=== PATIENT | female | born 1950 | race Caucasian/White ===

== ENCOUNTER → 2017-08-24 | Outpatient (CLI) | payer MEDICARE, OTHER ==
--- NOTE | 2017-08-24 12:50 | XR ---
EXAMINATION TYPE: XR chest 2V DATE OF EXAM: 08/24/2017 COMPARISON: NONE INDICATION: Chest pain TECHNIQUE: Frontal and lateral views of the chest are obtained. FINDINGS: The heart size is normal. The pulmonary vasculature is normal. The lungs are clear. Large hiatal hernia is present. IMPRESSION: 1. No acute pulmonary process.
== END | disposition home or self-care (01) ==
LOC: RADXRMAIN 12:03
PROVIDERS: ATTEND Family Medicine
DX: R06.00 Dyspnea, unspecified (principal); R07.9 Chest pain, unspecified
CPT/HCPCS: 71046; 85379

== ENCOUNTER → 2018-04-28 | Day surgery (SDC) | payer MEDICARE, OTHER ==
[2018-04-23 12:55] VITALS: BMI 38.1
[~2018-04-28] MED LIST: HYDROmorphone 1 MG/ML 1 ML SYRINGE IVP PRN; LACTATED RINGERS 1,000 ML IV SCH; LIDOCAINE 1% 20 ML VIAL (10MG/ML) FOR IV START INTRADERMA ONE; METOPROLOL TARTRATE 5 MG/5 ML VIAL IVP ONE; PROPOFOL 10 MG/ML 20 ML VIAL IV ONE
[2018-04-28 10:18] VITALS: TEMP 97
--- NOTE | 2018-04-28 11:10 | P.GSHP ---
History of Present Illness H&P Date: 04/28/18 Chief Complaint: GERD, GI bleed This a 67-year-old female who presents today for EGD and colonoscopy. She's had issues with GERD and GI bleed. Past Medical History Past Medical History: Atrial Fibrillation, Asthma, COPD, CVA/TIA, GERD/Reflux, Hyperlipidemia, Hypertension Additional Past Medical History / Comment(s): Hx stroke 1999; left sided weakness when tired History of Any Multi-Drug Resistant Organisms: None Reported Past Surgical History: Appendectomy, Section, Cholecystectomy, Hernia Repair, Orthopedic Surgery Additional Past Surgical History / Comment(s): Colonoscopy Past Anesthesia/Blood Transfusion Reactions: No Reported Reaction Smoking Status: Never smoker - Past Family History Mother Family Medical History: No Reported History Medications and Allergies Home Medications Medication Instructions Recorded Confirmed Type Albuterol Inhaler [Ventolin Hfa 1 - 2 puff INHALATION RT-Q6H PRN 04/23/18 History Inhaler] Albuterol Nebulized [Ventolin 2.5 mg INHALATION Q6H PRN 04/23/18 04/28/18 History Nebulized] Aspirin [Adult Low Dose Aspirin EC] 81 mg PO DAILY 04/23/18 04/23/18 History Atenolol 25 mg PO DAILY 04/23/18 04/28/18 History Losartan [Cozaar] 25 mg PO DAILY 04/23/18 04/28/18 History Lovastatin [Mevacor] 40 mg PO HS 04/23/18 04/28/18 History Omeprazole 20 mg PO DAILY 04/23/18 04/28/18 History Allergies Allergy/AdvReac Type Severity Reaction Status Date / Time theophylline [From Mohit-Dur] AdvReac Rapid Verified 04/23/18 12:25 Heart Rate Surgical - Exam Vital Signs Temp Pulse Resp BP Pulse Ox 97.0 F L 94 16 148/84 96 04/28/18 10:14 04/28/18 10:14 04/28/18 10:14 04/28/18 10:14 04/28/18 10:14 - General well developed, no distress - Eyes PERRL - ENT normal pinna - Neck no masses - Respiratory normal expansion - Cardiovascular Rhythm: regular - Abdomen Abdomen: soft, non tender Assessment and Plan Assessment: GERD, GI bleed. We'll perform EGD and colonoscopy.
--- NOTE | 2018-04-28 11:33 | P.OP ---
Date of Procedure: 04/28/18 Preoperative Diagnosis: GERD GI bleed Postoperative Diagnosis: Antral gastritis Hiatal hernia Diverticulosis Procedure(s) Performed: EGD Colonoscopy Anesthesia: MAC Surgeon: Gigi Horan Pathology: other (Antrum, esophagus) Condition: stable Disposition: PACU Description of Procedure: The patient's placed on the endoscopy table. She received IV sedation. The gastroscope placed oropharynx passed in the esophagus was then placed through the pylorus. The first and second portion of the duodenum appeared normal. Scope was then brought back the antrum this was mildly inflamed. A biopsies performed. The scope was then retroflexed the remainder of the stomach appeared normal. There was a moderate size hiatal hernia. The GE junction was at 38 cm. The distal esophagus appeared mildly inflamed a biopsies performed. The proximal esophagus appeared normal. Next digital rectal exam was performed which revealed external hemorrhoids. Flexible colonoscope was then placed patient anus and passed throughout the entire colon. The the ileocecal valve visualized. The cecum, ascending and transverse colon appeared normal. In the descending and sigmoid colon there is mild diverticular changes. The scope was then brought back the rectum and this appeared normal. Scope was withdrawn for patient.
[2018-04-28 12:21] VITALS: BP 112/72; PULSE 93; RESP 18
--- NOTE | 2018-04-30 12:48 | CDI ---
Date: 04/30/18 CDS/Lead Operator Name: Giuliana Baltazar Phone: If any questions, call Aimee Alexandra Wash Test Checker at [phone] Patient Name: Peggy Guaman Admit Date: 04/28/18 Discharge Date: 04/28/18 ATTENTION: The [facility] Coding Staff appreciate your assistance in clarifying documentation. Please respond to the clarification below the line at the bottom and electronically sign. The [facility] Coding staff will review the response and follow-up if needed. Please note: Queries are made part of the Legal Health Record. If you have any questions, please contact the Wash Test Checker. Dear Dr. Horan, Please provide clarification as the the cause of the GI bleed. Please clarify if the GI bleed was caused by any of the endoscopic findinds (gastritis, diverticulosis, gastroesophageal reflux disease with esophagitis). Thank you for your kind consideration I am unable to determine the source of bleeding due to no active blood was seen on endoscopy. AIDE
== END ==
LOC: ORWHC2ENDO 09:17
PROVIDERS: ATTEND Surgery
DX: K92.2 Gastrointestinal hemorrhage, unspecified (principal); K31.9 Disease of stomach and duodenum, unspecified; K21.0 Gastro-esophageal reflux disease with esophagitis; K29.70 Gastritis, unspecified, without bleeding; K44.9 Diaphragmatic hernia without obstruction or gangrene; K57.30 Diverticulosis of large intestine without perforation or abscess without bleeding; K64.4 Residual hemorrhoidal skin tags; I48.91 Unspecified atrial fibrillation; J44.9 Chronic obstructive pulmonary disease, unspecified; E78.5 Hyperlipidemia, unspecified; I10 Essential (primary) hypertension; I69.354 Hemiplegia and hemiparesis following cerebral infarction affecting left non-dominant side; Z79.82 Long term (current) use of aspirin; Z79.899 Other long term (current) drug therapy; Z88.8 Allergy status to other drugs, medicaments and biological substances
CPT/HCPCS: 88305; 45378; 43239; J2704

== ENCOUNTER 2019-08-25 04:30 | Emergency (ER) | payer MEDICARE, OTHER ==
[2019-08-25 05:56] LABS: Calcium 7.5 mg/dL (8.4-10.2); Potassium 3.5 mmol/L (3.5-5.1); Total Bilirubin 0.9 mg/dL (0.2-1.3); Total Protein 7.1 g/dL (6.3-8.2)
[2019-08-25 05:58] LABS: Basophils # (A) 0.1 k/uL (0-0.2); Basophils % (A) 1 %; Eosinophils # (A) 0.4 k/uL (0-0.7); Eosinophils % (A) 5 %; HCT 41.2 % (34.0-46.0); HGB 13.6 gm/dL (11.4-16.0); Lymphocytes # (A) 2.4 k/uL (1.0-4.8); Lymphocytes % (A) 30 %; MCH 32.4 pg (25.0-35.0); MCHC 33.1 g/dL (31.0-37.0); MCV 97.8 fL (80.0-100.0); Mean Platelet Volume 8.1; Monocytes # (A) 0.3 k/uL (0-1.0); Monocytes % (A) 4 %; Neutrophils # (A) 4.7 k/uL (1.3-7.7); Neutrophils % (A) 59 %; Platelet Count 164 k/uL (150-450); RBC 4.21 m/uL (3.80-5.40); RDW 12.3 % (11.5-15.5)
[2019-08-25 06:00] LABS: Creatine Kinase 116 U/L (30-135)
[2019-08-25 06:13] LABS: Creatine Kinase MB 0.7 ng/mL (0.0-2.4); Troponin I <0.012 ng/mL (0.000-0.034)
[2019-08-25 06:32] LABS: D-Dimer 0.36 mg/L FEU (<0.60); INR 2.2 (<1.2); Partial Thromboplastin Time 28.6 sec (22.0-30.0)
[2019-08-25] MEDS ORDERED: AZITHROMYCIN 500 MG TAB PO STA (07:19)
--- NOTE | 2019-08-25 07:21 | XR ---
EXAMINATION TYPE: XR chest 2V DATE OF EXAM: 08/25/2019 COMPARISON: 08/24/2017 INDICATION: Shortness of breath difficulty breathing TECHNIQUE: Frontal and lateral views of the chest are obtained. Images were not sent [employer] and pre sented now for interpretation. FINDINGS: The heart size is upper limits of normal. The pulmonary vasculature is slightly prominent. There is diffuse increased lung markings. A few Lulu B lines at the right costophrenic angle. Suspi cious focal consolidation is not evident. IMPRESSION: 1. Clinical correlation recommended for mild pulmonary edema and congestive heart failure.
--- NOTE | 2019-08-25 07:23 | ED ---
SOB HPI - General Stated Complaint: Difficulty Breathing - Related Data Home Medications Medication Instructions Recorded Confirmed Albuterol Inhaler [Ventolin Hfa 1 - 2 puff INHALATION RT-Q6H PRN 04/23/18 04/28/18 Inhaler] Albuterol Nebulized [Ventolin 2.5 mg INHALATION Q6H PRN 04/23/18 04/28/18 Nebulized] Aspirin [Adult Low Dose Aspirin EC] 81 mg PO DAILY 04/23/18 04/23/18 Atenolol 25 mg PO DAILY 04/23/18 04/28/18 Losartan [Cozaar] 25 mg PO DAILY 04/23/18 04/28/18 Lovastatin [Mevacor] 40 mg PO HS 04/23/18 04/28/18 Omeprazole 20 mg PO DAILY 04/23/18 04/28/18 Allergies Allergy/AdvReac Type Severity Reaction Status Date / Time theophylline [From Mohit-Dur] AdvReac Rapid Verified 04/23/18 12:25 Heart Rate Review of Systems ROS Statement: Those systems with pertinent positive or pertinent negative responses have been documented in the HPI. ROS Other: All systems not noted in ROS Statement are negative. Past Medical History Past Medical History: Atrial Fibrillation, Asthma, COPD, CVA/TIA, GERD/Reflux, Hyperlipidemia, Hypertension Additional Past Medical History / Comment(s): Hx stroke 1999; left sided weakness when tired History of Any Multi-Drug Resistant Organisms: None Reported Past Surgical History: Appendectomy, Section, Cholecystectomy, Hernia Repair, Orthopedic Surgery Additional Past Surgical History / Comment(s): Colonoscopy Past Anesthesia/Blood Transfusion Reactions: No Reported Reaction Smoking Status: Never smoker - Past Family History Mother Family Medical History: No Reported History Medical Decision Making - Lab Data Result diagrams: 08/25/19 05:06 08/25/19 05:06 Lab Results 08/25/19 08/25/19 08/25/19 Range/Units 05:06 05:06 05:06 WBC 8.0 (3.8-10.6) k/uL RBC 4.21 (3.80-5.40) m/uL Hgb 13.6 (11.4-16.0) gm/dL Hct 41.2 (34.0-46.0) % MCV 97.8 (80.0-100.0) fL MCH 32.4 (25.0-35.0) pg MCHC 33.1 (31.0-37.0) g/dL RDW 12.3 (11.5-15.5) % Plt Count 164 (150-450) k/uL Neutrophils % 59 % Lymphocytes % 30 % Monocytes % 4 % Eosinophils % 5 % Basophils % 1 % Neutrophils # 4.7 (1.3-7.7) k/uL Lymphocytes # 2.4 (1.0-4.8) k/uL Monocytes # 0.3 (0-1.0) k/uL Eosinophils # 0.4 (0-0.7) k/uL Basophils # 0.1 (0-0.2) k/uL PT (9.0-12.0) sec INR (<1.2) APTT (22.0-30.0) sec D-Dimer (<0.60) mg/L FEU Sodium 142 (137-145) mmol/L Potassium 3.5 (3.5-5.1) mmol/L Chloride 105 (98-107) mmol/L Carbon Dioxide 29 (22-30) mmol/L Anion Gap 8 mmol/L BUN 17 (7-17) mg/dL Creatinine 0.88 (0.52-1.04) mg/dL Est GFR (CKD-EPI)AfAm 78 (>60 ml/min/1.73 sqM) Est GFR (CKD-EPI)NonAf 67 (>60 ml/min/1.73 sqM) Glucose 124 H (74-99) mg/dL Calcium 7.5 L (8.4-10.2) mg/dL Total Bilirubin 0.9 (0.2-1.3) mg/dL AST 26 (14-36) U/L ALT 15 (4-34) U/L Alkaline Phosphatase 141 H (38-126) U/L Total Creatine Kinase 116 (30-135) U/L CK-MB (CK-2) 0.7 (0.0-2.4) ng/mL CK-MB (CK-2) Rel Index 0.6 Troponin I <0.012 (0.000-0.034) ng/mL NT-Pro-B Natriuret Pep pg/mL Total Protein 7.1 (6.3-8.2) g/dL Albumin 4.0 (3.5-5.0) g/dL 08/25/19 08/25/19 Range/Units 05:06 05:06 WBC (3.8-10.6) k/uL RBC (3.80-5.40) m/uL Hgb (11.4-16.0) gm/dL Hct (34.0-46.0) % MCV (80.0-100.0) fL MCH (25.0-35.0) pg MCHC (31.0-37.0) g/dL RDW (11.5-15.5) % Plt Count (150-450) k/uL Neutrophils % % Lymphocytes % % Monocytes % % Eosinophils % % Basophils % % Neutrophils # (1.3-7.7) k/uL Lymphocytes # (1.0-4.8) k/uL Monocytes # (0-1.0) k/uL Eosinophils # (0-0.7) k/uL Basophils # (0-0.2) k/uL PT 21.0 H (9.0-12.0) sec INR 2.2 H (<1.2) APTT 28.6 (22.0-30.0) sec D-Dimer 0.36 (<0.60) mg/L FEU Sodium (137-145) mmol/L Potassium (3.5-5.1) mmol/L Chloride (98-107) mmol/L Carbon Dioxide (22-30) mmol/L Anion Gap mmol/L BUN (7-17) mg/dL Creatinine (0.52-1.04) mg/dL Est GFR (CKD-EPI)AfAm (>60 ml/min/1.73 sqM) Est GFR (CKD-EPI)NonAf (>60 ml/min/1.73 sqM) Glucose (74-99) mg/dL Calcium (8.4-10.2) mg/dL Total Bilirubin (0.2-1.3) mg/dL AST (14-36) U/L ALT (4-34) U/L Alkaline Phosphatase (38-126) U/L Total Creatine Kinase (30-135) U/L CK-MB (CK-2) (0.0-2.4) ng/mL CK-MB (CK-2) Rel Index Troponin I (0.000-0.034) ng/mL NT-Pro-B Natriuret Pep 1150 pg/mL Total Protein (6.3-8.2) g/dL Albumin (3.5-5.0) g/dL Disposition Clinical Impression: Pneumonia Disposition: HOME SELF-CARE Condition: Fair Instructions (If sedation given, give patient instructions): Pneumonia (ED) Referrals: Sebastián Frazier MD [Primary Care Provider] - 1-2 days
[2019-08-25 07:51] VITALS: BP 155/94; PULSE 77; RESP 20; TEMP 98.2
== END 2019-08-25 07:51 | disposition home or self-care (01) ==
LOC: EC 04:30
DX: J18.9 Pneumonia, unspecified organism (principal); J45.901 Unspecified asthma with (acute) exacerbation; I10 Essential (primary) hypertension; I48.91 Unspecified atrial fibrillation; K21.9 Gastro-esophageal reflux disease without esophagitis; E78.5 Hyperlipidemia, unspecified; I69.354 Hemiplegia and hemiparesis following cerebral infarction affecting left non-dominant side; Z79.51 Long term (current) use of inhaled steroids; Z79.899 Other long term (current) drug therapy; Z79.82 Long term (current) use of aspirin; Z88.8 Allergy status to other drugs, medicaments and biological substances
CPT/HCPCS: 36415; 85379; 83880; 80053; 82550; 82553; 84484; 85025; 85610; 85730; 71046; 99285; 96365; J0696

== ENCOUNTER 2020-02-01 14:10 | Inpatient (IN) | payer MEDICARE, OTHER ==
--- NOTE | 2020-02-01 14:51 | ED ---
General Adult HPI - General Chief complaint: Altered Mental Status Stated complaint: Stroke Time Seen by Provider: 02/01/20 14:34 Source: patient, RN notes reviewed, old records reviewed Mode of arrival: wheelchair Limitations: no limitations - History of Present Illness Initial comments: 69-year-old female presenting for evaluation of confusion, lightheadedness, symptoms began about 3 hours prior to arrival. She is currently on Coumadin with a history of atrial fibrillation. Denies headache. Denies chest pain. She denies numbness or weakness in her extremities. She states she's having difficulty grabbing objects. No nausea vomiting. No fever. She does have previous history of CVA. - Related Data Home Medications Medication Instructions Recorded Confirmed Albuterol Inhaler (Mhu) [Ventolin 1 - 2 puff INHALATION RT-Q6H PRN 04/23/18 04/28/18 Hfa Inhaler] Albuterol Nebulized [Ventolin 2.5 mg INHALATION Q6H PRN 04/23/18 04/28/18 Nebulized] Aspirin [Adult Low Dose Aspirin EC] 81 mg PO DAILY 04/23/18 04/23/18 Losartan [Cozaar] 25 mg PO DAILY 04/23/18 04/28/18 Lovastatin [Mevacor] 40 mg PO HS 04/23/18 04/28/18 Omeprazole 20 mg PO DAILY 04/23/18 04/28/18 atenoloL [Atenolol] 25 mg PO DAILY 04/23/18 04/28/18 Allergies Allergy/AdvReac Type Severity Reaction Status Date / Time theophylline [From Mohit-Dur] AdvReac Rapid Verified 02/01/20 14:19 Heart Rate Review of Systems ROS Statement: Those systems with pertinent positive or pertinent negative responses have been documented in the HPI. ROS Other: All systems not noted in ROS Statement are negative. Past Medical History Past Medical History: Atrial Fibrillation, Asthma, COPD, CVA/TIA, GERD/Reflux, Hyperlipidemia, Hypertension Additional Past Medical History / Comment(s): Hx stroke 1999; left sided weakness when tired History of Any Multi-Drug Resistant Organisms: None Reported Past Surgical History: Appendectomy, Section, Cholecystectomy, Hernia Repair, Orthopedic Surgery Additional Past Surgical History / Comment(s): Colonoscopy Past Anesthesia/Blood Transfusion Reactions: No Reported Reaction Past Psychological History: No Psychological Hx Reported Smoking Status: Never smoker Past Alcohol Use History: None Reported Past Drug Use History: None Reported - Past Family History Mother Family Medical History: No Reported History General Exam Limitations: no limitations General appearance: alert, in no apparent distress Head exam: Present: atraumatic, normocephalic Eye exam: Present: normal appearance, PERRL, EOMI, other. Absent: nystagmus ENT exam: Present: normal exam Neck exam: Present: normal inspection. Absent: tenderness, meningismus Respiratory exam: Present: normal lung sounds bilaterally. Absent: respiratory distress, wheezes Cardiovascular Exam: Present: tachycardia, irregular rhythm GI/Abdominal exam: Present: soft. Absent: distended, tenderness, guarding Extremities exam: Present: normal inspection, normal capillary refill. Absent: pedal edema, calf tenderness Neurological exam: Present: alert, oriented X3, motor sensory deficit (Patient has limited ataxia in the left upper extremity, abnormal finger to nose, abnormal past-pointing), other (Strength is 5 out of 5 in all 4 extremities.) Psychiatric exam: Present: normal affect, normal mood Skin exam: Present: warm, dry, intact Course Vital Signs 02/01/20 02/01/20 02/01/20 14:13 14:45 15:00 Temperature 98.1 F Pulse Rate 105 H 96 97 Respiratory 20 25 H 22 Rate Blood Pressure 180/89 149/111 149/110 O2 Sat by Pulse 97 95 95 Oximetry 02/01/20 02/01/20 02/01/20 15:15 15:25 15:30 Temperature 99.4 F Pulse Rate 95 89 Respiratory 19 18 Rate Blood Pressure 175/111 177/110 O2 Sat by Pulse 97 97 Oximetry EKG Findings - EKG Comments: EKG Findings:: EKG: Atrial flutter with variable AV block, rate of 106, QRS duration 70, QTC 433, LVH, no ST segment elevation. Medical Decision Making - Medical Decision Making 69-year-old female with acute limb ataxia previous history of CVA. Patient is evaluated as a code stroke. I did discuss case with Dr. Shepard, stroke neurologist at 1455. Patient is not a TPA candidate secondary to low NIH and currently being on Coumadin. CT is performed which is negative for intracranial hemorrhage or mass effect. CT angiography is negative for aneurysm, no stenosis or occlusion. Patient has normal CBC, CMP shows calcium of 7.7, ionized calcium has been ordered this result is pending. She is given aspirin emergency department as well as IV fluids. She will be admitted for further stroke evaluation. Case is discussed with Dr. Nixon who will accept admission. Neurology has been placed on consult. - Lab Data Result diagrams: 02/01/20 15:01 02/01/20 15:01 Lab Results 02/01/20 02/01/20 02/01/20 Range/Units 15:01 15: 15:01 WBC 9.8 (3.8-10.6) k/uL RBC 4.22 (3.80-5.40) m/uL Hgb 13.7 (11.4-16.0) gm/dL Hct 42.1 (34.0-46.0) % MCV 99.8 (80.0-100.0) fL MCH 32.6 (25.0-35.0) pg MCHC 32.7 (31.0-37.0) g/dL RDW 12.4 (11.5-15.5) % Plt Count 202 (150-450) k/uL Neutrophils % 67 % Lymphocytes % 20 % Monocytes % 5 % Eosinophils % 5 % Basophils % 1 % Neutrophils # 6.6 (1.3-7.7) k/uL Lymphocytes # 2.0 (1.0-4.8) k/uL Monocytes # 0.5 (0-1.0) k/uL Eosinophils # 0.5 (0-0.7) k/uL Basophils # 0.1 (0-0.2) k/uL PT 14.9 H (9.0-12.0) sec INR 1.5 H (<1.2) APTT 24.7 (22.0-30.0) sec Sodium 140 (137-145) mmol/L Potassium 3.6 (3.5-5.1) mmol/L Chloride 107 (98-107) mmol/L Carbon Dioxide 24 (22-30) mmol/L Anion Gap 9 mmol/L BUN 14 (7-17) mg/dL Creatinine 0.81 (0.52-1.04) mg/dL Est GFR (CKD-EPI)AfAm 86 (>60 ml/min/1.73 sqM) Est GFR (CKD-EPI)NonAf 74 (>60 ml/min/1.73 sqM) Glucose 145 H (74-99) mg/dL POC Glucose (mg/dL) (75-99) mg/dL POC Glu Aircraft Powerplant Repairer ID Calcium 7.7 L (8.4-10.2) mg/dL Total Bilirubin 1.0 (0.2-1.3) mg/dL AST 33 (14-36) U/L ALT 18 (4-34) U/L Alkaline Phosphatase 104 (38-126) U/L Troponin I (0.000-0.034) ng/mL Total Protein 7.1 (6.3-8.2) g/dL Albumin 4.1 (3.5-5.0) g/dL 02/01/20 02/01/20 Range/Units 15:01 15:05 WBC (3.8-10.6) k/uL RBC (3.80-5.40) m/uL Hgb (11.4-16.0) gm/dL Hct (34.0-46.0) % MCV (80.0-100.0) fL MCH (25.0-35.0) pg MCHC (31.0-37.0) g/dL RDW (11.5-15.5) % Plt Count (150-450) k/uL Neutrophils % % Lymphocytes % % Monocytes % % Eosinophils % % Basophils % % Neutrophils # (1.3-7.7) k/uL Lymphocytes # (1.0-4.8) k/uL Monocytes # (0-1.0) k/uL Eosinophils # (0-0.7) k/uL Basophils # (0-0.2) k/uL PT (9.0-12.0) sec INR (<1.2) APTT (22.0-30.0) sec Sodium (137-145) mmol/L Potassium (3.5-5.1) mmol/L Chloride (98-107) mmol/L Carbon Dioxide (22-30) mmol/L Anion Gap mmol/L BUN (7-17) mg/dL Creatinine (0.52-1.04) mg/dL Est GFR (CKD-EPI)AfAm (>60 ml/min/1.73 sqM) Est GFR (CKD-EPI)NonAf (>60 ml/min/1.73 sqM) Glucose (74-99) mg/dL POC Glucose (mg/dL) 132 H (75-99) mg/dL POC Glu Aircraft Powerplant Repairer ID Radha Silva Calcium (8.4-10.2) mg/dL Total Bilirubin (0.2-1.3) mg/dL AST (14-36) U/L ALT (4-34) U/L Alkaline Phosphatase (38-126) U/L Troponin I 0.023 (0.000-0.034) ng/mL Total Protein (6.3-8.2) g/dL Albumin (3.5-5.0) g/dL Critical Care Time Critical Care Time: Yes Total Critical Care Time: 35 Disposition Clinical Impression: CVA (cerebral vascular accident) Disposition: ADMITTED IP TO THIS [facility] Condition: Stable Is patient prescribed a controlled substance at d/c from ED?: No Referrals: Sebastián Frazier MD [Primary Care Provider] - 1-2 days Decision to Admit Reason: Admit from EC Decision Date: 02/01/20 Decision Time: 15:57
--- NOTE | 2020-02-01 15:02 | CT ---
EXAMINATION TYPE: CT brain wo con DATE OF EXAM: 02/01/2020 HISTORY: cava. Acute onset neural deficit. CT DLP: 1069.8 mGycm. Automated Exposure Control for Dose Reduction was Utilized. TECHNIQUE: CT scan of the head is performed without contrast. COMPARISON: None. FINDINGS: There is no acute intracranial hemorrhage or midline shift identified. There is diffuse v entricular and sulcal prominence consistent with diffuse age-related cerebral atrophy. There is low- attenuation in the periventricular white matter consistent with chronic small vessel ischemic change. Old infarct inferior left cerebellar hemisphere axial image 24 noted. The globes are intact and the visualized sinuses are clear. IMPRESSION: No acute intracranial hemorrhage or midline shift. There is efpw-ic-yfftjenn diffuse ce rebral atrophy and mild chronic small vessel ischemic change along with old inferior left cerebellar infarct all noted.
[2020-02-01 15:08] LABS: Glucose,Whole Blood 132 mg/dL (75-99)
[2020-02-01] MEDS ORDERED: SODIUM CHLORIDE 0.9% 500 ML 500 ML IV ONE (15:17)
[2020-02-01 15:18] LABS: Basophils # (A) 0.1 k/uL (0-0.2); Basophils % (A) 1 %; Eosinophils # (A) 0.5 k/uL (0-0.7); Eosinophils % (A) 5 %; HCT 42.1 % (34.0-46.0); HGB 13.7 gm/dL (11.4-16.0); Lymphocytes % (A) 20 %; MCH 32.6 pg (25.0-35.0); MCHC 32.7 g/dL (31.0-37.0); MCV 99.8 fL (80.0-100.0); Mean Platelet Volume 7.6; Monocytes # (A) 0.5 k/uL (0-1.0); Monocytes % (A) 5 %; Neutrophils # (A) 6.6 k/uL (1.3-7.7); Neutrophils % (A) 67 %; Platelet Count 202 k/uL (150-450); RBC 4.22 m/uL (3.80-5.40); RDW 12.4 % (11.5-15.5); WBC 9.8 k/uL (3.8-10.6)
--- NOTE | 2020-02-01 15:22 | CT ---
EXAMINATION TYPE: CT angio head neck DATE OF EXAM: 02/01/2020 HISTORY: cva, acute onset neuro deficit. COMPARISON: NONE CT DLP: 616.6 mGycm. Automated Exposure Control for Dose Reduction was Utilized. TECHNIQUE: CTA scan of the head and neck are performed with IV Contrast, patient injected with 65cc mL of Isovue 370, axial images are obtained, coronal and sagittal reformatted images are reviewed. Th ree-D reconstructed images are created on an independent workstation and reviewed. FINDINGS: Carotid/Vascular Structures: Normal 3 vessel origin from aortic arch. Normal origin right common heard tid artery from brachiocephalic artery. No significant plaque or stenosis in the bilateral common or internal carotid arteries including at level of bilateral carotid bulbs. Patent external carotid chano narciso bilaterally without significant stenosis. There is nonvisualized left vertebral artery suggesting occlusion or hypoplastic. There is a patent r ight vertebral artery which has some tortuous course filling the basilar artery. No significant focal stenosis or aneurysmal change of the posterior circulation. Patent right posterior communicating art sisi. Hypoplastic left posterior communicating artery. Patent anterior communicating artery is seen. N o significant focal stenosis or aneurysmal change in the anterior circulation. Other: No additional significant abnormality. IMPRESSION: 1. No significant stenosis or aneurysmal change at the level of the [place]. 2. No significant stenosis in common or internal carotid arteries bilaterally.
[2020-02-01 15:23] LABS: INR 1.5 (<1.2); Partial Thromboplastin Time 24.7 sec (22.0-30.0); Prothrombin Time 14.9 sec (9.0-12.0)
[2020-02-01] MEDS: SODIUM CHLORIDE 0.9% 1,000 ML IV SCH (15:23)
[2020-02-01] MEDS ORDERED: ACETAMINOPHEN TAB 500 MG TAB PO STA (15:27)
[2020-02-01 15:30] LABS: Albumin 4.1 g/dL (3.5-5.0); Calcium 7.7 mg/dL (8.4-10.2); Potassium 3.6 mmol/L (3.5-5.1); Total Protein 7.1 g/dL (6.3-8.2)
[2020-02-01] MEDS ORDERED: ASPIRIN 325 MG TAB PO STA (15:53)
--- NOTE | 2020-02-01 15:57 | XR ---
EXAMINATION TYPE: XR chest 2V DATE OF EXAM: 02/01/2020 CLINICAL HISTORY: Altered mental status TECHNIQUE: Frontal and lateral views of the chest are obtained. COMPARISON: 08/25/2019 chest radiograph FINDINGS: Likely hiatal hernia. The cardiomediastinal silhouette is within normal limits for size. P ulmonary vasculature is normal. There is no focal air space opacity, pleural effusion, or pneumothora x seen. The osseous structures are intact. IMPRESSION: No acute cardiopulmonary process.
[2020-02-01] MEDS ORDERED: ALBUTEROL NEBULIZED 2.5 MG/3 ML INHALATION PRN (16:38)
--- NOTE | 2020-02-01 20:06 | HP ---
HISTORY AND PHYSICAL This patient is a 69-year-old white female who has had confusion, lightheadedness; symptoms began 3 hours prior to her arrival. She is on Coumadin with a history of atrial fibrillation, but she had some confusion and unable to know where she was. It was intermittent. brand new to her. She had difficulty grabbing objects. She appears to be super anxious at this time. Her thought she had a stroke and brought her into the emergency room. She has previous history of a stroke. HOME MEDICATIONS: 1. Atenolol 25 daily. 2. Omeprazole 20 daily. 3. Mevacor 40 daily. 4. Cozaar 25 daily. 5. Aspirin 81 daily. 6. Albuterol updrafts p.r.n. ALLERGIES: THEOPHYLLINE. REVIEW OF SYSTEMS: Fourteen-point review of systems as mentioned above. PAST MEDICAL HISTORY: Atrial fibrillation, asthma, COPD, CVA, TIA, GERD, dyslipidemia, hypertension, history of stroke in 1999, left-sided weakness when tired. SURGERIES: Appendectomy, , cholecystectomy, hernia repair, orthopedic surgery, colonoscopies. SOCIAL HISTORY: She never smoked. No alcohol. No drugs. FAMILY HISTORY: Mother negative. PHYSICAL EXAMINATION: Vital signs are stable. Afebrile. CARDIOVASCULAR: S1, S2. Irregular rhythm. LUNGS: Clear. GI: Soft. NEUROLOGIC: She is alert and oriented x3. She has limited ataxia in her left upper extremity. Had normal gcdski-wv-vygl past-pointing. Strength is good in all extremities. PSYCH: Very anxious and nervous. She is answering questions. SKIN: Warm, dry, intact. Blood pressure is 180/89 to 149/110, temperature 98.1, heart rate 96-105, respiratory rate 20-25. EKG shows atrial flutter with variable block. Acute limb ataxia. Previous history of cerebrovascular accident. Suspect an acute CVA. CODE STROKE was called. Neurologist was called. She was not a tPA candidate due to low NIH and being on Coumadin. CT scan was negative for any bleed. CT angiogram negative for aneurysm. No stenosis or occlusion. Normal CBC. Chem panel shows calcium 7.79. Calcium has been ordered. Aspirin. Fluids. Further neurologic stroke workup. MMODL / IJN: [id number] /
[2020-02-01] MEDS ORDERED: ATORVASTATIN 10 MG TAB PO SCH (21:00)
[2020-02-01] MEDS: ENOXAPARIN 100 MG/ML SYRINGE SQ SCH (21:56)
[2020-02-02] MEDS: ACETAMINOPHEN TAB 325 MG TAB PO PRN ×2 (03:32→20:51)
[2020-02-02 04:18] LABS: Cholesterol 164 mg/dL (<200); HDL Cholesterol 39 mg/dL (40-60); LDL Cholesterol,Calculated 79 mg/dL (0-99); Triglycerides 232 mg/dL (<150)
[2020-02-02] MEDS: SODIUM CHLORIDE 0.9% 1,000 ML IV SCH (06:09)
[2020-02-02] MEDS: PANTOPRAZOLE 40 MG TABLET PO SCH (06:40)
[2020-02-02] MEDS: atenoloL 25 MG TAB PO SCH (07:58)
[2020-02-02] MEDS: ASPIRIN 81 MG PO SCH (07:58)
[2020-02-02] MEDS: LOSARTAN 25 MG TAB PO SCH (07:58)
[2020-02-02] MEDS: ENOXAPARIN 100 MG/ML SYRINGE SQ SCH (07:59)
[2020-02-02] MEDS ORDERED: ASPIRIN 325 MG TAB PO SCH (09:00)
--- NOTE | 2020-02-02 10:00 | ECHOF ---
Referral Reason:stroke MEASUREMENTS -------- HEIGHT: 152.4 cm WEIGHT: 100.2 kg BP: IVSd: 1.3 cm (0.6 - 1.1) LVIDd: 4.6 cm (3.9 - 5.3) LVPWd: 1.1 cm (0.6 - 1.1) IVSs: 1.8 cm LVIDs: 3.6 cm LVPWs: 1.2 cm LA Diam: 4.0 cm (2.7 - 3.8) RVIDd: 2.9 cm (< 3.3) Ao Diam: 3.4 cm (2.0 - 3.7) AV Cusp: 1.4 cm (1.5 - 2.6) EPSS: 0.9 cm RAP: 5.00 mmHg RVSP: 27.53 mmHg MV EF SLOPE: 56.42 mm/s (70 - 150) MV EXCURSION: 18.74 mm (> 18.000) FINDINGS -------- Sinus rhythm. This was a techncally difficult study with suboptimal views, , Lumason utilized for enhancement of im ages. The left ventricular size is normal. There is mild concentric left ventricular hypertrophy. Overa ll left ventricular systolic function is low-normal with, an EF between 50 - 55 %. The right ventricle is normal in size. The left atrial size is normal. The right atrial size is normal. The aortic valve is trileaflet, and appears structurally normal. No aortic stenosis or regurgitation. Mild mitral regurgitation is present. Mild tricuspid regurgitation present. Right ventricular systolic pressure is normal at < 35 mmHg. There is no pulmonic regurgitation present. The aortic root size is normal. Echo free space represents a pericardial fat pad. CONCLUSIONS -------- 1. This was a techncally difficult study with suboptimal views, , Lumason utilized for enhancement of images. 2. The left ventricular size is normal. 3. There is mild concentric left ventricular hypertrophy. 4. Overall left ventricular systolic function is low-normal with, an EF between 50 - 55 %. 5. The right ventricle is normal in size. 6. The left atrial size is normal. 7. The right atrial size is normal. 8. Mild mitral regurgitation is present. 9. Mild tricuspid regurgitation present. 10. Right ventricular systolic pressure is normal at < 35 mmHg. 11. Echo free space represents a pericardial fat pad. ADULT PROTECTIVE CASEWORKER: Cici Mario RDCS
[2020-02-02] MEDS ORDERED: GABAPENTIN 100 MG CAP PO PRN (10:44)
--- NOTE | 2020-02-02 10:49 | P.CNNES ---
History of Present Illness Consult date: 02/02/20 Requesting physician: Dane Ch Reason for Consult: stroke History of Present Illness: This is a 69-year-old right-handed female with history of old left cerebellar infarct (1999), atrial fibrillation, hypertension, hyper cholesterolemia who presented [facility] emergency department on 02/01/2020 for evaluation of dizziness and unsteady gait with lack of coordination of the right arm. she said that her symptoms began on your 01/31/2020 Upon waking up at 6:00 in the morning. She noticed that she was dizzy as well as a that she was her gait was unsteady she described as a her gait describe it as "out of wack". she also felt that she was having coordination over the right arm whenever she wanted to grab an object with the right hand and she could not she felt like there is a miscommunication. She denies any sensory loss denies any difficulty getting her words out any slurring of speech any swallowing difficulty any visual disturbance. Upon presentation to the ED was felt that she presented within 3 hours of her symptoms but upon getting the history from the patient she stated that her symptoms began the day prior to presenting to the hospital. there is a concern that she has confusion. In the ED, the Stroke code was activated and the plan was discussed with the stroke team. Was noted that she is not a TPA candidate because of low NIH and because the patient is on Coumadin. Workup in the hospital consisted of CT of the head It was reported as no acute intracranial hemorrhage or midline shift. There is mild to moderate diffuse cervical atrophy and mild chronic small vessel ischemic changes along with old inferior left cerebellar infarct. CT of the head and neck was performed and was reported as no significant stenosis or aneurysm change at the level of deering of Reyes. No significant stenosis in the common or internal carotid arteries bilaterally. EKG was done and that was reported as atrial flutter with variable AV block. Minimal voltage criteria for left ventricular hypertrophy, may be a normal variant. Ventricle rate of 106. Her INR on presentation was subtherapeutic and was 1.5. PT is 14.9. PTT is 24.7. Initial POC glucose was 132 Lipid profile triglycerides of 232 cholesterol of 164 LDL 79 HDL 39. Her calcium was 7.7 and ionized calcium was 4.0 both low. Of note she does have a history of old stroke and the left cerebellar and she said that her old stroke caused her to have left leg ataxia and visual disturbance over the the left which has improved regarding the visual disturbance. She is on Coumadin for atrial fibrillation. and of noted her INR on pr esentation was 1.5. She did state that she missed 2 days of Coumadin per the cardiology recommendation which were this past Thursday and Thursday because of her INR levels. she takes atorvastatin 40mg daily her medical documentation she could not remember exactly the dose. She said that she does not miss her medication otherwise. She does not take aspirin at home or Plavix. Review of Systems Review of system: The 12 point system was reviewed and apparent positive and negative per HPI. Past Medical History Past Medical History: Atrial Fibrillation, Asthma, COPD, CVA/TIA, GERD/Reflux, Hyperlipidemia, Hypertension Additional Past Medical History / Comment(s): Hx stroke 1999; left sided weakness when tired History of Any Multi-Drug Resistant Organisms: None Reported Past Surgical History: Appendectomy, Section, Cholecystectomy, Hernia Repair, Orthopedic Surgery Additional Past Surgical History / Comment(s): Colonoscopy Past Anesthesia/Blood Transfusion Reactions: No Reported Reaction Past Psychological History: No Psychological Hx Reported Smoking Status: Never smoker Past Alcohol Use History: None Reported Past Drug Use History: None Reported - Past Family History Mother Family Medical History: No Reported History Medications and Allergies Home Medications Medication Instructions Recorded Confirmed Type Albuterol Nebulized [Ventolin 2.5 mg INHALATION RT-QID PRN 04/23/18 02/01/20 History Nebulized] Lovastatin [Mevacor] 40 mg PO DAILY 04/23/18 02/01/20 History atenoloL [Atenolol] 25 mg PO BID 04/23/18 02/01/20 History Acetaminophen [Tylenol] 500 mg PO BID PRN 02/01/20 02/01/20 History Albuterol Inhaler [Ventolin Hfa 1 - 2 puff INHALATION RT-Q6H PRN 02/01/20 02/01/20 History Inhaler] Furosemide [Lasix] 10 mg PO DAILY 02/01/20 02/01/20 History Losartan [Cozaar] 50 mg PO DAILY 02/01/20 02/01/20 History Meclizine [Antivert] 12.5 mg PO HS PRN 02/01/20 02/01/20 History Montelukast Sodium [Singulair] 10 mg PO HS 02/01/20 02/01/20 History Omeprazole [PriLOSEC] 40 mg PO DAILY 02/01/20 02/01/20 History Warfarin [Coumadin] 2.5 mg PO SUMOWETHFR 02/01/20 02/01/20 History gemfibroziL [Lopid] 600 mg PO DAILY 02/01/20 02/01/20 History Allergies Allergy/AdvReac Type Severity Reaction Status Date / Time theophylline [From Mohit-Dur] AdvReac Rapid Verified 02/01/20 17:01 Heart Rate Physical Examination - Vital Signs Vital Signs: Vital Signs Temp Pulse Pulse Resp BP BP Pulse Ox 02/02/20 04:00 97.7 F 103 H 19 179/102 98 02/01/20 23:37 97.9 F 85 17 169/84 97 02/01/20 20:00 98.1 F 85 18 166/98 97 02/01/20 18:06 96.5 F L 71 20 156/66 96 02/01/20 16:45 89 12 174/119 02/01/20 16:15 98 15 166/111 98 02/01/20 15:30 89 18 177/110 97 02/01/20 15:25 99.4 F 02/01/20 15:15 95 19 175/111 97 02/01/20 15:00 97 22 149/110 95 02/01/20 14:45 96 25 H 149/111 95 02/01/20 14:13 98.1 F 105 H 20 180/89 97 Intake and Output 02/01/20 02/02/20 02/02/20 22:59 06:59 14:59 Other: Voiding Method Toilet Toilet # Voids 0 3 Weight 99.79 kg GENERAL: The patient is lying in sitting on her chair and not in acute distress. CHEST: The heart rate is irregular rate rhythm. No murmurs to auscultation. No carotid bruit bilaterally. LUNG: Clear to auscultation bilaterally no wheezing noted throughout. Not labored breathing. ABDOMEN/GI: Bowel sounds present in all 4 quadrants. No tenderness to palpation throughout. NEUROLOGICAL: Higher mental function: The patient is awake, alert, oriented to self, place and time. Patient is following simple commands. Patient is somewhat slow to respond to questions. No aphasia and no neglect. Cranial nerves: The pupils are round, equal and reactive to light and accommodation. Visual purvis are decrease over entire left upper to confrontation throughout. Extraocular movement is intact no nystagmus is noted. Facial sensation is normal to touch throughout. The facial strength is normal throughout. Hearing is normal bilaterally to hand rub. Tongue is midline and moved [id number] without any difficulty. No dysarthria is noted. Shoulder shrug is normal bilaterally. Motor: The strength is right hand grib is 4+ otherwise strength seems 5/5 throughout. Normal tone and bulk. Cerebellum: Normal finger to nose bilaterally. But heel to shah she was have difficulty performing it. She had intention tremor Sensation: Sensation is normal to touch throughout. Reflexes (right/left): 2+ throughout except ankles 1+ bilaterally. Plantars is upgoing on the right but mute on the left. Results - Laboratory Findings CBC and BMP: 02/01/20 15:01 02/01/20 15:01 Abnormal Lab Findings: Abnormal Labs 02/01/20 02/01/20 02/01/20 15:01 15:01 15:01 PT 14.9 H INR 1.5 H Glucose 145 H POC Glucose (mg/dL) Calcium 7.7 L Ionized Calcium Elisha Triglycerides 232 H HDL Cholesterol 39 L 02/01/20 02/01/20 15:05 16:16 PT INR Glucose POC Glucose (mg/dL) 132 H Calcium Ionized Calcium Elisha 4.0 L Triglycerides HDL Cholesterol Assessment and Plan Assessment: This is a 69-year-old right-handed female with history of old left cerebellar infarct (1999), atrial fibrillation, hypertension, hyper cholesterolemia who presented to the emergency department on 02/01/2020 for evaluation of dizziness and unsteady gait with lack of coordination of the right arm. Symptoms began on your 01/31/2020 Upon waking up at 6:00 in the morning. She noticed dizziness, unsteady gait and ataxia of right upper extremity as well as some confusion. Her INR was 1.5 since missed Thursday and Thursday dose since her physician was adjusting the dose. She had hypocalcemia (7.7 and ionized calcium was 4.0). Dizziness, unsteady gait and ataxia of right upper extremity could be due to possibly stroke. Transient peroid of Encephalopathy due to hypocalcemia Hypocalcemia Subtherapeutic INR Old left cerebellar stroke history of hypertension Hyperlipidemia Plan: Stroke work-up include: MRI the brain:ordered to rule out stroke CT of the head: It was reported as no acute intracranial hemorrhage or midline shift. There is mild to moderate diffuse cervical atrophy and mild chronic small vessel ischemic changes along with old inferior left cerebellar infarct. CTA of the head and neck was performed and was reported as no significant stenosis or aneurysm change at the level of deering of Reyes. No significant stenosis in the common or internal carotid arteries bilaterally. EKG was done and that was reported as atrial flutter with variable AV block. Minimal voltage criteria for left ventricular hypertrophy, may be a normal variant. Ventricle rate of 106. Her INR on presentation was subtherapeutic and was 1.5. PT is 14.9. PTT is 24.7. Initial POC glucose was 132 Lipid profile triglycerides of 232 cholesterol of 164 LDL 79 HDL 39. Recommend Coumadin to be in the range of 2-3. Will not add the aspirin or any antiplatelets even if she had a stroke since her Coumadin was subtherapeutic frankie t could explain the reason for stroke. she is currently on aspirin and from mod neurologic perspective she does not need to be on aspirin and we'll defer the management of aspirin to the primary team. She is currently on atorvastatin 10 mg in the hospital but at home she is on 40 mg. So we'll increase the dose to 40. with target LDL less than 70. Echo is pending Ordered TSH, HbA1c, Vitamin B12. PT/OT are on board. Regarding management of medical problems we will defer to primary team. Thank you for the consult. Justo Romero MD Neuro-hospitalist Time with Patient: Greater than 30
--- NOTE | 2020-02-02 10:55 | P.CRDCN ---
History of Present Illness Consult date: 02/02/20 Chief complaint: Change in mental status History of present illness: This is a pleasant 69-year-old female patient who sees Dr. Zavala as an outpatient with a past medical history significant for paroxysmal atrial fibrillation as well as hypertension and dyslipidemia and history of stroke in the past was admitted to the hospital for possible TIA/CVA. The patient did have some change in mental status associated with dizziness and lightheadedness but no syncope. No symptoms of heart racing or fluttering, loss of consciousness, chest pain or chest discomfort, or shortness of breath. Neurology was consulted to see the patient to rule out any TIA/CVA. She underwent a computed tomography scan of the brain which came in to be unremar kable and CTA of the head and neck and that also came in to be unremarkable. The patient does have paroxysmal atrial fibrillation and also she does have obstructive sleep apnea and she was receiving Coumadin as an oral anticoagulation. The INR was 1.51 the patient presented to the hospital. She i s now in sinus rhythm with overall controlled heart rate. She seems to be asymptomatic at the time of the physical examination. The patient otherwise denies any fever or chills, abdominal pain, or nausea or vomiting. There was some concern about stroke. Past Medical History Past Medical History: Atrial Fibrillation, Asthma, COPD, CVA/TIA, GERD/Reflux, Hyperlipidemia, Hypertension Additional Past Medical History / Comment(s): Hx stroke 1999; left sided weakness when tired History of Any Multi-Drug Resistant Organisms: None Reported Past Surgical History: Appendectomy, Section, Cholecystectomy, Hernia Repair, Orthopedic Surgery Additional Past Surgical History / Comment(s): Colonoscopy Past Anesthesia/Blood Transfusion Reactions: No Reported Reaction Past Psychological History: No Psychological Hx Reported Smoking Status: Never smoker Past Alcohol Use History: None Reported Past Drug Use History: None Reported - Past Family History Mother Family Medical History: No Reported History Medications and Allergies Home Medications Medication Instructions Recorded Confirmed Type Albuterol Nebulized [Ventolin 2.5 mg INHALATION RT-QID PRN 04/23/18 02/01/20 History Nebulized] Lovastatin [Mevacor] 40 mg PO DAILY 04/23/18 02/01/20 History atenoloL [Atenolol] 25 mg PO BID 04/23/18 02/01/20 History Acetaminophen [Tylenol] 500 mg PO BID PRN 02/01/20 02/01/20 History Albuterol Inhaler [Ventolin Hfa 1 - 2 puff INHALATION RT-Q6H PRN 02/01/20 02/01/20 History Inhaler] Furosemide [Lasix] 10 mg PO DAILY 02/01/20 02/01/20 History Losartan [Cozaar] 50 mg PO DAILY 02/01/20 02/01/20 History Meclizine [Antivert] 12.5 mg PO HS PRN 02/01/20 02/01/20 History Montelukast Sodium [Singulair] 10 mg PO HS 02/01/20 02/01/20 History Omeprazole [PriLOSEC] 40 mg PO DAILY 02/01/20 02/01/20 History Warfarin [Coumadin] 2.5 mg PO SUMOWETHFR 02/01/20 02/01/20 History gemfibroziL [Lopid] 600 mg PO DAILY 02/01/20 02/01/20 History Allergies Allergy/AdvReac Type Severity Reaction Status Date / Time theophylline [From Mohit-Dur] AdvReac Rapid Verified 02/01/20 17:01 Heart Rate Physical Exam Vitals: Vital Signs Temp Pulse Pulse Resp BP BP Pulse Ox 02/02/20 08:00 81 19 135/87 98 02/02/20 04:00 97.7 F 103 H 19 179/102 98 02/01/20 23:37 97.9 F 85 17 169/84 97 02/01/20 20:00 98.1 F 85 18 166/98 97 02/01/20 18:06 96.5 F L 71 20 156/66 96 02/01/20 16:45 89 12 174/119 02/01/20 16:15 98 15 166/111 98 02/01/20 15:30 89 18 177/110 97 02/01/20 15:25 99.4 F 02/01/20 15:15 95 19 175/111 97 02/01/20 15:00 97 22 149/110 95 02/01/20 14:45 96 25 H 149/111 95 02/01/20 14:13 98.1 F 105 H 20 180/89 97 Intake and Output 02/01/20 02/02/20 02/02/20 22:59 06:59 14:59 Intake Total 440 Balance 440 Intake: Oral 440 Other: Voiding Method Toilet Toilet Toilet # Voids 0 3 Weight 99.79 kg - Constitutional General appearance: no acute distress - Respiratory Respiratory: bilateral: CTA - Cardiovascular Rhythm: irregularly irregular Heart sounds: normal: S1, S2 Results 02/01/20 15:01 02/01/20 15:01 Cardiac Enzymes 02/01/20 02/01/20 Range/Units 15:01 15:01 AST 33 (14-36) U/L Troponin I 0.023 (0.000-0.034) ng/mL Coagulation 02/01/20 Range/Units 15: PT 14.9 H (9.0-12.0) sec APTT 24.7 (22.0-30.0) sec Lipids 02/01/20 Range/Units 15: Triglycerides 232 H (<150) mg/dL Cholesterol 164 (<200) mg/dL HDL Cholesterol 39 L (40-60) mg/dL CBC 02/01/20 Range/Units 15:01 WBC 9.8 (3.8-10.6) k/uL RBC 4.22 (3.80-5.40) m/uL Hgb 13.7 (11.4-16.0) gm/dL Hct 42.1 (34.0-46.0) % Plt Count 202 (150-450) k/uL Comprehensive Metabolic Panel 02/01/20 Range/Units 15:01 Sodium 140 (137-145) mmol/L Potassium 3.6 (3.5-5.1) mmol/L Chloride 107 (98-107) mmol/L Carbon Dioxide 24 (22-30) mmol/L BUN 14 (7-17) mg/dL Creatinine 0.81 (0.52-1.04) mg/dL Glucose 145 H (74-99) mg/dL Calcium 7.7 L (8.4-10.2) mg/dL AST 33 (14-36) U/L ALT 18 (4-34) U/L Alkaline Phosphatase 104 (38-126) U/L Total Protein 7.1 (6.3-8.2) g/dL Albumin 4.1 (3.5-5.0) g/dL Current Medications Generic Name Dose Route Start Last Admin Trade Name Freq PRN Reason Stop Dose Admin Acetaminophen 650 mg 02/02/20 03:28 02/02/20 03:32 Tylenol Tab PO 650 mg Q6HR PRN Administration Fever and/ or Pain Albuterol Sulfate 2.5 mg 02/01/20 16:38 Ventolin Nebulized INHALATION Q6H PRN Bronchodilation Aspirin 81 mg 02/02/20 09:00 02/02/20 07:58 Aspirin PO 81 mg DAILY TOSIN Administration Atenolol 25 mg 02/02/20 09:00 02/02/20 07:58 Tenormin PO 25 mg DAILY TOSIN Administration Atorvastatin Calcium 10 mg 02/01/20 21:00 02/01/20 21:56 Lipitor PO 10 mg HS TOSIN Administration Atorvastatin Calcium 40 mg 02/02/20 21:00 Lipitor PO HS TOSIN Enoxaparin Sodium 100 mg 02/01/20 21:00 02/02/20 07:59 Lovenox SQ 100 mg Q12HR TOSIN Administration Gabapentin 100 mg 02/02/20 10:44 Neurontin PO TID PRN headache Sodium Chloride 1,000 mls @ 75 mls/hr 02/01/20 15:30 02/02/20 06:09 Saline 0.9% IV 75 mls/hr .[id number] TOSIN Administration Losartan Potassium 25 mg 02/02/20 09:00 02/02/20 07:58 Cozaar PO 25 mg DAILY TOSIN Administration Pantoprazole Sodium 40 mg 02/02/20 07:30 02/02/20 06:40 Protonix PO 40 mg DAILY@0730 TOSIN Administration Intake and Output 02/01/20 02/02/20 02/02/20 22:59 06:59 14:59 Intake Total 440 Balance 440 Intake: Oral 440 Other: Voiding Method Toilet Toilet Toilet # Voids 0 3 Weight 99.79 kg 02/01/20 15:01 02/01/20 15:01 Assessment and Plan Assessment: Assessment #1 paroxysmal atrial fibrillation #2 confusion/dizziness and lightheadedness #3 possible TIA/CVA #4 hypertension #5 dyslipidemia #6 obstructive sleep apnea Plan #1 the patient is in atrial fibrillation was controlled heart rate #2 the echo revealed normal LV function without significant valvular abnormalities #3 I would advised the patient to be started on one of the newer oral anticoagulation #4 I am going to check to see the patient is covered for the Eliquis #5 follow-up with the patient Thank you for allowing us participate in her care
[2020-02-02] MEDS ORDERED: CALCIUM CHLORIDE 100 MG/ML 10 ML SYRINGE IVP ONE (18:16)
[2020-02-02 18:59] LABS: Hemoglobin A1C 5.4 % (4.0-6.0)
[2020-02-02] MEDS ORDERED: CALCIUM GLUCONATE 1 GM in SODIUM CHLORIDE 0.9% 100 ML IVPB ONE (19:00)
[2020-02-02] MEDS: APIXABAN 5 MG TAB PO SCH (20:53)
[2020-02-02] MEDS ORDERED: ATORVASTATIN 40 MG TAB PO SCH (21:00)
--- NOTE | 2020-02-02 23:20 | PN ---
PROGRESS NOTE A 69-year-old white female who has been placed on Eliquis tonight 5 mg b.i.d. along with Coumadin, Lovenox to be discontinued. Await for MRI of the brain tomorrow to look for stroke. Cardiovascular S1, S2. Lungs clear. GI soft. Hematology negative Homans. Neurologic: Mild expressive aphasia. ASSESSMENT: Transient ischemic attack versus cerebrovascular accident. MRI of the brain tomorrow. Continue with beta blockers, Eliquis, cholesterol. Follow up next 24 to 48 hours. Check MRI. Possible rehab placement. MMODL / IJN: [id number] /
--- NOTE | 2020-02-03 06:27 | P.CONS ---
History of Present Illness - Chief Complaint Gait disturbance - History of Present Illness I had the opportunity to see patient for inpatient rehab consultation with regard to gait disturbance. She is admitted to [facility] January 31 not feeling well, funny feeling like a similar stroke previously. Seen by neurology for stroke workup. Seen by cardiology who notes paroxysmal atrial fibrillation. Chest x-ray and angiogram CT negative. Head CT with mild to moderate atrophy and chronic change. PT reports minimal assistance for bed mobility and minimal moderate assistance for gait 85 feet with roller walker. OT reports supervision for upper and lower dressing and minimal assistance for bathing, toileting and transfers. Speech therapy assessed swallow and cognition with both appear within normal limits. 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 Patient independent with cooking, laundry, standing shower and gait without device. Both are retired. PMD Dr. Sebastián Frazier. Denies tobacco or alcohol. Family history father with stroke. Review of Systems Review of systems: ENT: Denies sneezes or discharge. Eyes: Denies discharge or photophobia. Cardiac: Denies chest pain or palpitation. Pulmonary: Denies cough or shortness of breath. Breast: Denies discharge or lumps. Gastrointestinal: Denies nausea, emesis, constipation, diarrhea. Genitourinary: Denies discharge or frequency. Musculoskeletal: Denies muscle or bone aches. Neurologic: Now resolved vague funny feelings. Endocrine: Denies shakes or sweats. Oncology: Denies cancers. Dermatologic: Denies rash, itching, pruritus. ALLERGY/immunology: Denies sneezes, rashes. Past Medical History Past Medical History: Atrial Fibrillation, Asthma, COPD, CVA/TIA, GERD/Reflux, Hyperlipidemia, Hypertension Additional Past Medical History / Comment(s): Hx stroke 1999; left sided weakness when tired History of Any Multi-Drug Resistant Organisms: None Reported Past Surgical History: Appendectomy, Section, Cholecystectomy, Hernia Repair, Orthopedic Surgery Additional Past Surgical History / Comment(s): Colonoscopy Past Anesthesia/Blood Transfusion Reactions: No Reported Reaction Past Psychological History: No Psychological Hx Reported Smoking Status: Never smoker Past Alcohol Use History: None Reported Past Drug Use History: None Reported - Past Family History Mother Family Medical History: No Reported History Medications and Allergies Home Medications Medication Instructions Recorded Confirmed Type Albuterol Nebulized [Ventolin 2.5 mg INHALATION RT-QID PRN 04/23/18 02/01/20 History Nebulized] Lovastatin [Mevacor] 40 mg PO DAILY 04/23/18 02/01/20 History atenoloL [Atenolol] 25 mg PO BID 04/23/18 02/01/20 History Acetaminophen [Tylenol] 500 mg PO BID PRN 02/01/20 02/01/20 History Albuterol Inhaler [Ventolin Hfa 1 - 2 puff INHALATION RT-Q6H PRN 02/01/20 02/01/20 History Inhaler] Furosemide [Lasix] 10 mg PO DAILY 02/01/20 02/01/20 History Losartan [Cozaar] 50 mg PO DAILY 02/01/20 02/01/20 History Meclizine [Antivert] 12.5 mg PO HS PRN 02/01/20 02/01/20 History Montelukast Sodium [Singulair] 10 mg PO HS 02/01/20 02/01/20 History Omeprazole [PriLOSEC] 40 mg PO DAILY 02/01/20 02/01/20 History Warfarin [Coumadin] 2.5 mg PO SUMOWETHFR 02/01/20 02/01/20 History gemfibroziL [Lopid] 600 mg PO DAILY 02/01/20 02/01/20 History Allergies Allergy/AdvReac Type Severity Reaction Status Date / Time theophylline [From [facility]] AdvReac Rapid Verified 02/01/20 17:01 Heart Rate Physical Exam Vitals: Vital Signs Temp Pulse Resp BP Pulse Ox 02/03/20 04:00 97.7 F 97 18 152/93 96 02/03/20 00:00 97.5 F L 89 18 162/96 98 02/02/20 20:00 98.7 F 88 18 150/84 96 02/02/20 16:00 76 18 116/55 94 L 02/02/20 12:00 76 19 116/55 94 L 02/02/20 08:00 81 19 135/87 98 Intake and Output 02/02/20 02/02/20 02/03/20 14:59 22:59 06:59 Intake Total 440 480 Balance 440 480 Intake: Oral 440 480 Other: Voiding Method Toilet Toilet Toilet # Voids 1 2 Weight 96.3 kg Skin: Good color, texture, turgor. General: Overweight build and comfortable appearance. Head: Normocephalic, atraumatic. Eyes: Symmetric. Pupils equal round. Ears: Symmetric. Hearing within normal limits. Mouth: Clear. Neck: Supple. Carotid without bruit. Cardiac: Regular rate and rhythm. Lungs: Clear anteriorly and posteriorly. Abdomen: Soft active nontender. Extremities: Normal tone. Neurological: Mental status: Alert, cooperative, pleasant. Cranial nerves: Symmetric facial tone and trapezius. Motor: Normal strength and isolation all 4 limbs. Sensation: Intact throughout. DTRs: Symmetric and equal throughout. Mobility: Reports independent in room including going to bathroom. Results CBC & Chem 7: 02/01/20 15:01 02/01/20 15:01 Assessment and Plan (1) CVA (cerebral vascular accident) Current Visit: Yes Status: Acute Code(s): I63.9 - CEREBRAL INFARCTION, UNSPECIFIED SNOMED Code(s): 592836920 Plan: Impression: 1. Gait disturbance. 2. Stroke or TIA. History of previous stroke. 3. Hypertension. 4. Dyslipidemia. 5. Paroxysmal active fibrillation. 6. COPD/asthma. Some plan: At this time PT and OT are ongoing and safety concerns noted. Patient however describes independent in room. We'll follow therapy notes today for possible inpatient rehab. If patient is correct, most likely will not require inpatient rehab though.
[2020-02-03] MEDS: PANTOPRAZOLE 40 MG TABLET PO SCH (06:55)
[2020-02-03] MEDS: SODIUM CHLORIDE 0.9% 1,000 ML IV SCH (07:52)
[2020-02-03] MEDS: ASPIRIN 81 MG PO SCH (08:03)
[2020-02-03] MEDS: atenoloL 25 MG TAB PO SCH (08:03)
[2020-02-03] MEDS: LOSARTAN 25 MG TAB PO SCH (08:03)
[2020-02-03] MEDS: APIXABAN 5 MG TAB PO SCH (08:03)
[2020-02-03 09:40] LABS: African American GFR (CKD) >90 (>60 ml/min/1.73 sqM); Anion Gap 8 mmol/L; Blood Urea Nitrogen 9 mg/dL (7-17); Carbon Dioxide 24 mmol/L (22-30); Chloride 107 mmol/L (98-107); Glucose 122 mg/dL (74-99); Non-African American GFR(CKD) 89 (>60 ml/min/1.73 sqM); Potassium 3.3 mmol/L (3.5-5.1); Sodium 139 mmol/L (137-145)
[2020-02-03] MEDS: ACETAMINOPHEN TAB 325 MG TAB PO PRN (09:43)
--- NOTE | 2020-02-03 11:42 | MR ---
EXAMINATION TYPE: MR brain wo con DATE OF EXAM: 02/03/2020 COMPARISON: CT brain 02/01/2020 HISTORY: Stroke: Dizziness and right ataxia CONTRAST: Performed utilizing 0 mL intravenous Gadavist gadolinium contrast. TECHNIQUE: Multiplanar, multiecho imaging on a 3.0 Amanda magnet is performed through the brain. Stud y is not performed within 24 hours of arrival to the hospital. The craniovertebral junction is normal. The pituitary is normal. Diffusion-weighted imaging is performed. No abnormal hyperintensity is present to suggest an acute i ntracranial infarct or acute ischemic change. There are scattered white matter changes throughout the brain. This includes the left inferior cerebe llum, the brainstem, periventricular white matter, subcortical white matter. Findings are nonspecific . Chronic white matter ischemic changes could be considered. Other etiologies including multiple scle rosis are within the differential. Ventricles and sulci are appropriate for the patient age. There may be some mild encephalomalacia orville ng the inferior left cerebellum. IMPRESSIONS: 1. Scattered periventricular and subcortical white matter changes. Some white matter changes within t he left cerebellum. Differential diagnosis should include multiple sclerosis and microvascular ischem ic change among other etiologies. 2. There may be prior infarct along the inferior left cerebellum. Acute changes are not identified.
--- NOTE | 2020-02-03 14:05 | P.PN ---
Subjective Progress Note Date: 02/03/20 CHIEF COMPLAINT: afib HISTORY OF PRESENT ILLNESS: Patient examined at the bedside. She denies chest pain. Denies shortness of breath. She remains in afib. heartrate controlled. Rachael was unfortunately not covered by her insurance. She has been resumed on Coumadin. PHYSICAL EXAM: VITAL SIGNS: Reviewed. GENERAL: Well-developed in no acute distress. NECK: Supple. No JVD or thyromegaly LUNGS: Respirations even and unlabored. Lungs essentially clear to auscultation bilaterally. HEART: Irregular rate and rhythm. S1 and S2 heard. EXTREMITIES: Normal range of motion. No clubbing or cyanosis. Peripheral pulses intact. No lower extremity edema ASSESSMENT: #1 paroxysmal atrial fibrillation #2 confusion/dizziness and lightheadedness #3 possible TIA/CVA #4 hypertension #5 dyslipidemia #6 obstructive sleep apnea PLAN: -Patient may be discharged home this afternoon -Continue current dose of Coumadin -Continue Lovenox for 5 days -Check INR Thursday02/06/20 Nurse practitioner note has been reviewed by physician. Signing provider agrees with the documented findings, assessment, and plan of care. Objective - Vital Signs Vital signs: Vital Signs Temp 97.9 F 02/03/20 08:00 Pulse 97 02/03/20 08:00 Resp 18 02/03/20 08:00 BP 146/77 02/03/20 08:00 Pulse Ox 93 L 02/03/20 08:00 Intake & Output 02/02/20 02/03/20 02/03/20 18:59 06:59 18:59 Intake Total 920 Balance 920 Weight 96.3 kg Intake: Oral 920 Other: Voiding Method Toilet Toilet Toilet # Voids 1 2 1 - Labs CBC & Chem 7: 02/01/20 15:01 02/03/20 08:51 Labs: Abnormal Lab Results - Last 24 Hours (Table) 02/03/20 Range/Units 08:51 Potassium 3.3 L (3.5-5.1) mmol/L Glucose 122 H (74-99) mg/dL Calcium 7.0 L (8.4-10.2) mg/dL
[2020-02-03 16:40] VITALS: BP 151/78; PULSE 89; RESP 20; TEMP 98
[2020-02-03] MEDS ORDERED: WARFARIN 2 MG TAB PO SCH (18:00)
[2020-02-03] MEDS ORDERED: ENOXAPARIN 100 MG/ML SYRINGE SQ SCH (21:00)
--- NOTE | 2020-02-03 21:54 | DS ---
DISCHARGE SUMMARY DISCHARGE DIAGNOSES: 1. Paroxysmal atrial fibrillation. 2. Confusion. 3. Dizziness. 4. Lightheadedness. 5. Probable transient ischemic attack, cerebrovascular accident. 6. Hypertension. 7. Dyslipidemia. 8. Sleep apnea. The patient was in atrial fibrillation with controlled heart rate when she was admitted for a stroke. Her insurance would not pay for the new blood thinner. She was suboptimal on Coumadin, for which Cardiology had been following. They increased her Coumadin dosing to 4 mg a day, Lovenox for 10 days subcutaneously and risk factor modification. MRI of the brain was done while in the hospital. HOME MEDICATIONS: 1. Lipitor 40 daily. 2. Atenolol 25 daily. 3. Lovenox 100 mg subcutaneously b.i.d. 4. Cozaar 25 mg daily. 5. Protonix 40 mg daily. 6. Coumadin 4 mg daily. PROGNOSIS: Guarded. Follow up in my office in a week. Diet regular. MMHARRYL / OBIN: [id number] /
--- NOTE | 2020-02-06 05:01 | CDI ---
Documentation Clarification Form Date: 02/06/2020 From: Vladislav Zamarripa Phone: If you have a question about this query, please contact Aimee Alexandra, Water Well Driller at [phone] between 8am and 5pm. Admit Date: 02/01/2020 Discharge Date: 02/03/2020 Patient Name: Marlin Guaman Visit Number: [id number] ATTENTION: The Clinical Documentation Specialists (CDI) and [facility] Coding Staff appreciate your assistance in clarifying documentation. Please respond to the clarification below the line at the bottom and electronically sign. The CDI & [facility] Coding staff will review the response and follow-up if needed. Please note: Queries are made part of the Legal Health Record. If you have any questions, please contact the author of this message via ITS. Dear Sebastián Gutierrez., Encephalopathy is documented in 02/01 consult note as "Transient peroid of Encephalopathy due to hypocalcemia". History/Risk Factors: CVA, COPD, atrial fibrillation CT/MRI Brain:Scattered periventricular and subcortical white matter changes.Some whitematter changes within the left cerebellum.Differential diagnosis should includemultiple sclerosis and microvascular ischemic change among other etiologies.2.There may be prior infarct along the inferior left cerebellum.Acute changesare not identified. Per DS "Probable transient ischemic attack, cerebrovascular accident". 02/[address]Omar Romero mentioned as Patient having confusion, Dizziness, Hypocalcemia and stated as "Transient peroid of Encephalopathy due to hypocalcemia". In your professional opinion, can you please clarify the specific type of Encephalopathy, if known? Metabolic Encephalopathy Toxic Encephalopathy Other, please specify Unable to determine MTDD
--- NOTE | 2020-02-11 08:12 | CDI ---
Documentation Clarification Form Date: 02/11/2020 From: Vladislav Zamarripa Phone: If you have a question about this query, please contact Aimee Alexandra, Artist Color Separation at [phone] between 8am and 5pm. Admit Date: 02/01/2020 Discharge Date: 02/03/2020 Patient Name: Marlin Guaman Visit Number: [id number] ATTENTION: The Clinical Documentation Specialists (CDI) and [facility] Coding Staff appreciate your assistance in clarifying documentation. Please respond to the clarification below the line at the bottom and electronically sign. The CDI & [facility] Coding staff will review the response and follow-up if needed. Please note: Queries are made part of the Legal Health Record. If you have any questions, please contact the author of this message via ITS. Dear Sebastián Gutierrez., Encephalopathy is documented in 02/01 consult note as "Transient peroid of Encephalopathy due to hypocalcemia". History/Risk Factors: CVA, COPD, atrial fibrillation CT/MRI Brain:Scattered periventricular and subcortical white matter changes.Some whitematter changes within the left cerebellum.Differential diagnosis should includemultiple sclerosis and microvascular ischemic change among other etiologies.2.There may be prior infarct along the inferior left cerebellum.Acute changesare not identified. Per DS "Probable transient ischemic attack, cerebrovascular accident". 02/[address]Omar Romero mentioned as Patient having confusion, Dizziness, Hypocalcemia and stated as "Transient peroid of Encephalopathy due to hypocalcemia". In your professional opinion, can you please clarify the specific type of Encephalopathy, if known? Metabolic Encephalopathy Toxic Encephalopathy Other, please specify Unable to determine MTDD
--- NOTE | 2020-02-14 23:20 | CDI ---
Documentation Clarification Form Date: 02/15/2020 From: Vladislav Zamarripa Phone: If you have a question about this query, please contact Aimee Alexandra, Instrument Specialist at [phone] between 8am and 5pm. Admit Date: 02/01/2020 Discharge Date: 02/03/2020 Patient Name: Marlin Guaman Visit Number: [id number] ATTENTION: The Clinical Documentation Specialists (CDI) and [facility] Coding Staff appreciate your assistance in clarifying documentation. Please respond to the clarification below the line at the bottom and electronically sign. The CDI & [facility] Coding staff will review the response and follow-up if needed. Please note: Queries are made part of the Legal Health Record. If you have any questions, please contact the author of this message via ITS. Dear Sebastián Gutierrez., Encephalopathy is documented in 02/01 consult note as "Transient peroid of Encephalopathy due to hypocalcemia". History/Risk Factors: CVA, COPD, atrial fibrillation CT/MRI Brain:Scattered periventricular and subcortical white matter changes.Some whitematter changes within the left cerebellum.Differential diagnosis should includemultiple sclerosis and microvascular ischemic change among other etiologies.2.There may be prior infarct along the inferior left cerebellum.Acute changesare not identified. Per DS "Probable transient ischemic attack, cerebrovascular accident". 02/[address]Omar Romero mentioned as Patient having confusion, Dizziness, Hypocalcemia and stated as "Transient peroid of Encephalopathy due to hypocalcemia". In your professional opinion, can you please clarify the specific type of Encephalopathy, if known? Metabolic Encephalopathy Toxic Encephalopathy Other, please specify Unable to determine MTDD
== END 2020-02-03 16:47 | disposition home or self-care (01) | DRG 65 ==
LOC: EC 14:10 → 3SCARD 15:53
PROVIDERS: ADMIT Family Medicine; ATTEND Family Medicine
DX: I63.9 Cerebral infarction, unspecified (principal); G93.40 Encephalopathy, unspecified; I48.0 Paroxysmal atrial fibrillation; E78.5 Hyperlipidemia, unspecified; J44.9 Chronic obstructive pulmonary disease, unspecified; I10 Essential (primary) hypertension; G47.33 Obstructive sleep apnea (adult) (pediatric); R40.2363 Coma scale, best motor response, obeys commands, at hospital admission; R40.2143 Coma scale, eyes open, spontaneous, at hospital admission; R40.2233 Coma scale, best verbal response, inappropriate words, at hospital admission; K21.9 Gastro-esophageal reflux disease without esophagitis; E83.51 Hypocalcemia; R47.01 Aphasia; I44.30 Unspecified atrioventricular block; R79.1 Abnormal coagulation profile; Z79.01 Long term (current) use of anticoagulants; Z74.1 Need for assistance with personal care; Z79.82 Long term (current) use of aspirin; Z79.899 Other long term (current) drug therapy; I69.393 Ataxia following cerebral infarction; Z88.8 Allergy status to other drugs, medicaments and biological substances; Z86.73 Personal history of transient ischemic attack (TIA), and cerebral infarction without residual deficits; Z90.49 Acquired absence of other specified parts of digestive tract; Z98.890 Other specified postprocedural states; Z98.891 History of uterine scar from previous surgery; Z82.3 Family history of stroke
CPT/HCPCS: 36415; 70450; 70496; 70498; 70551; 71046; 80048; 80053; 80061; 82330; 82607; 83036; 83970; 84443; 84484; 85025; 85610; 85730; 93005; 93306; 96360; 99291

== ENCOUNTER 2020-03-03 13:45 | Inpatient (IN) | payer MEDICARE, OTHER ==
[2020-03-03 14:19] LABS: Basophils # (A) 0.1 k/uL (0-0.2); Basophils % (A) 1 %; Eosinophils # (A) 0.5 k/uL (0-0.7); Eosinophils % (A) 4 %; HCT 37.7 % (34.0-46.0); HGB 12.2 gm/dL (11.4-16.0); Hypochromasia Slight; Lymphocytes # (A) 1.9 k/uL (1.0-4.8); Lymphocytes % (A) 17 %; MCH 31.6 pg (25.0-35.0); MCHC 32.3 g/dL (31.0-37.0); MCV 97.8 fL (80.0-100.0); Mean Platelet Volume 7.7; Monocytes # (A) 0.5 k/uL (0-1.0); Monocytes % (A) 5 %; Neutrophils # (A) 7.9 k/uL (1.3-7.7); Neutrophils % (A) 72 %; Platelet Count 278 k/uL (150-450); RBC 3.85 m/uL (3.80-5.40); RDW 12.7 % (11.5-15.5)
[2020-03-03] MEDS ORDERED: ACETAMINOPHEN TAB 500 MG TAB PO STA (14:21)
[2020-03-03 14:28] LABS: Total Bilirubin 1.2 mg/dL (0.2-1.3); Total Protein 7.3 g/dL (6.3-8.2)
[2020-03-03 14:32] LABS: Potassium 3.9 mmol/L (3.5-5.1)
--- NOTE | 2020-03-03 14:38 | CT ---
EXAMINATION TYPE: CT brain wo con for TPA DATE OF EXAM: 03/03/2020 COMPARISON: 02/01/2020 HISTORY: Weakness CT DLP: mGycm Automated exposure control for dose reduction was used. Ventricles have normal size. There is no mass effect nor midline shift. There is no sign of intracran ial hemorrhage. Calvarium is intact. There is no evidence of cerebral edema. There is 1.5 cm hypodens ity in the inferior left cerebellar hemisphere consistent with an old infarct. IMPRESSION: Old left cerebellar small infarct. No acute intracranial abnormality. No change.
[2020-03-03 14:54] LABS: Partial Thromboplastin Time 46.9 sec (22.0-30.0); Prothrombin Time 70.6 sec (9.0-12.0)
[2020-03-03 14:58] LABS: INR 6.9 (<1.2)
--- NOTE | 2020-03-03 15:02 | ED ---
Neuro HPI - General Chief Complaint: Neuro Symptoms/Deficit Stated Complaint: Numbness on L side Time Seen by Provider: 03/03/20 13:59 Source: patient, RN notes reviewed Mode of arrival: ambulatory Limitations: no limitations - History of Present Illness Is the patient presenting with stroke symptoms?: No Initial Comments: This is a 69-year-old female with a recent admission for possible TIA possible CVA among other diagnoses who is here today complaining of left-sided facial numbness which started about 4 hours prior to arrival. She also has a frontal headache she has any focal weakness or upper or lower extremities no fevers chills nausea vomiting sweats no blurry vision no other symptoms at this time reported. - Related Data Home Medications: Home Medications Medication Instructions Recorded Confirmed Albuterol Nebulized [Ventolin 2.5 mg INHALATION RT-QID PRN 04/23/18 02/01/20 Nebulized] Lovastatin [Mevacor] 40 mg PO DAILY 04/23/18 02/01/20 atenoloL [Atenolol] 25 mg PO BID 04/23/18 02/01/20 Acetaminophen [Tylenol] 500 mg PO BID PRN 02/01/20 02/01/20 Albuterol Inhaler [Ventolin Hfa 1 - 2 puff INHALATION RT-Q6H PRN 02/01/20 02/01/20 Inhaler] Losartan [Cozaar] 50 mg PO DAILY 02/01/20 02/01/20 Meclizine [Antivert] 12.5 mg PO HS PRN 02/01/20 02/01/20 Montelukast Sodium [Singulair] 10 mg PO HS 02/01/20 02/01/20 Omeprazole [PriLOSEC] 40 mg PO DAILY 02/01/20 02/01/20 gemfibroziL [Lopid] 600 mg PO DAILY 02/01/20 02/01/20 Previous Rx's Medication Instructions Recorded Aspirin 81 mg PO DAILY chew 02/03/20 Enoxaparin [Lovenox] 100 mg SQ Q12H #10 syr 02/03/20 Warfarin [Coumadin] 4 mg PO DAILY #30 tablet 02/03/20 Allergies/Adverse Reactions: Allergies Allergy/AdvReac Type Severity Reaction Status Date / Time theophylline [From Mohit-Dur] AdvReac Rapid Verified 03/03/20 13:47 Heart Rate Review of Systems ROS Statement: Those systems with pertinent positive or pertinent negative responses have been documented in the HPI. ROS Other: All systems not noted in ROS Statement are negative. General Exam - General Exam Comments Initial Comments: This is a well-developed well-nourished awake alert oriented 3 female Limitations: no limitations General appearance: alert, in no apparent distress Head exam: Present: atraumatic, normocephalic, normal inspection, other (Is palpation of left facial nerve palpation.) Eye exam: Present: normal appearance, PERRL, EOMI. Absent: scleral icterus, conjunctival injection, periorbital swelling ENT exam: Present: normal exam, mucous membranes moist Neck exam: Present: normal inspection. Absent: tenderness, meningismus, lym phadenopathy Respiratory exam: Present: normal lung sounds bilaterally. Absent: respiratory distress, wheezes, rales, rhonchi, stridor Cardiovascular Exam: Present: regular rate, normal rhythm, normal heart sounds. Absent: systolic murmur, diastolic murmur, rubs, gallop, clicks GI/Abdominal exam: Present: soft, normal bowel sounds. Absent: distended, tenderness, guarding, rebound, rigid Extremities exam: Present: normal inspection, full ROM, normal capillary refill. Absent: tenderness, pedal edema, joint swelling, calf tenderness Back exam: Present: normal inspection Neurological exam: Present: alert, oriented X3, CN II-XII intact Psychiatric exam: Present: normal affect, normal mood Skin exam: Present: warm, dry, intact, normal color. Absent: rash Stroke MDM - Lab Data Result diagrams: 03/03/20 14:08 03/03/20 14:08 Lab Results 03/03/20 03/03/20 03/03/20 Range/Units 14:08 14:08 14:08 WBC 11.0 H (3.8-10.6) k/uL RBC 3.85 (3.80-5.40) m/uL Hgb 12.2 (11.4-16.0) gm/dL Hct 37.7 (34.0-46.0) % MCV 97.8 (80.0-100.0) fL MCH 31.6 (25.0-35.0) pg MCHC 32.3 (31.0-37.0) g/dL RDW 12.7 (11.5-15.5) % Plt Count 278 (150-450) k/uL Neutrophils % 72 % Lymphocytes % 17 % Monocytes % 5 % Eosinophils % 4 % Basophils % 1 % Neutrophils # 7.9 H (1.3-7.7) k/uL Lymphocytes # 1.9 (1.0-4.8) k/uL Monocytes # 0.5 (0-1.0) k/uL Eosinophils # 0.5 (0-0.7) k/uL Basophils # 0.1 (0-0.2) k/uL Hypochromasia Slight PT 70.6 H (9.0-12.0) sec INR 6.9 H* (<1.2) APTT 46.9 H (22.0-30.0) sec Sodium 140 (137-145) mmol/L Potassium 3.9 (3.5-5.1) mmol/L Chloride 105 (98-107) mmol/L Carbon Dioxide 25 (22-30) mmol/L Anion Gap 10 mmol/L BUN 15 (7-17) mg/dL Creatinine 0.83 (0.52-1.04) mg/dL Est GFR (CKD-EPI)AfAm 83 (>60 ml/min/1.73 sqM) Est GFR (CKD-EPI)NonAf 72 (>60 ml/min/1.73 sqM) Glucose 120 H (74-99) mg/dL Calcium 7.0 L (8.4-10.2) mg/dL Total Bilirubin 1.2 (0.2-1.3) mg/dL AST 34 (14-36) U/L ALT 13 (4-34) U/L Alkaline Phosphatase 71 (38-126) U/L Creatine Kinase 173 H (30-135) U/L Troponin I (0.000-0.034) ng/mL Total Protein 7.3 (6.3-8.2) g/dL Albumin 4.0 (3.5-5.0) g/dL 03/03/20 Range/Units 14:08 WBC (3.8-10.6) k/uL RBC (3.80-5.40) m/uL Hgb (11.4-16.0) gm/dL Hct (34.0-46.0) % MCV (80.0-100.0) fL MCH (25.0-35.0) pg MCHC (31.0-37.0) g/dL RDW (11.5-15.5) % Plt Count (150-450) k/uL Neutrophils % % Lymphocytes % % Monocytes % % Eosinophils % % Basophils % % Neutrophils # (1.3-7.7) k/uL Lymphocytes # (1.0-4.8) k/uL Monocytes # (0-1.0) k/uL Eosinophils # (0-0.7) k/uL Basophils # (0-0.2) k/uL Hypochromasia PT (9.0-12.0) sec INR (<1.2) APTT (22.0-30.0) sec Sodium (137-145) mmol/L Potassium (3.5-5.1) mmol/L Chloride (98-107) mmol/L Carbon Dioxide (22-30) mmol/L Anion Gap mmol/L BUN (7-17) mg/dL Creatinine (0.52-1.04) mg/dL Est GFR (CKD-EPI)AfAm (>60 ml/min/1.73 sqM) Est GFR (CKD-EPI)NonAf (>60 ml/min/1.73 sqM) Glucose (74-99) mg/dL Calcium (8.4-10.2) mg/dL Total Bilirubin (0.2-1.3) mg/dL AST (14-36) U/L ALT (4-34) U/L Alkaline Phosphatase (38-126) U/L Creatine Kinase (30-135) U/L Troponin I 0.038 H* (0.000-0.034) ng/mL Total Protein (6.3-8.2) g/dL Albumin (3.5-5.0) g/dL - NIH Stroke Scale 1a. Level of Consciousness: (0) alert 1b. LOC Questions: (0) answers correctly 1c. LOC Commands: (0) performs tasks correctly 2. Best Gaze: (0) normal 3. Visual: (0) no visual loss 4. Facial Palsy: (0) normal symmetrical movement 5a. Motor Arm Left: (0) no drift 5b. Motor Arm Right: (0) no drift 6a. Motor Leg Left: (0) no drift 6b. Motor Leg Right: (0) no drift 7. Limb Ataxia: (0) absent 8. Sensory: (1) mild/moderate sensory loss 9. Best Language: (0) no aphasia 10. Dysarthria: (0) normal 11. Extinction/Inattention: (0) no abnormality - Thrombolytic Inclusion/Exclusion Thrombolytic Contraindications: INR > 1.7 seconds, Stroke in Past 3 Months - Core Measures AMI Core Measures Followed: Yes - Medical Decision Making Reevaluation patient she feels improved this time no symptoms I did discuss case with her her family and Dr. Frazier patient be admitted. Parathyroid hormone is pending. Endocrinology will be consulted. The presentation is not consistent with a CVA or TIA at this time. - Radiology Data Radiology results: report reviewed (No acute findings.), image reviewed - EKG Data -: EKG Interpreted by Me EKG shows normal: sinus rhythm ( Sinus rhythm with PACs rate 92. Interval 136 QRS 74 QT since QTC 460/514 prolonged QT and minimal voltage criteria for LVH) Past Medical History Past Medical History: Atrial Fibrillation, Asthma, COPD, CVA/TIA, GERD/Reflux, Hyperlipidemia, Hypertension Additional Past Medical History / Comment(s): Hx stroke 1999; left sided weakness when tired History of Any Multi-Drug Resistant Organisms: None Reported Past Surgical History: Appendectomy, Section, Cholecystectomy, Hernia Repair, Orthopedic Surgery Additional Past Surgical History / Comment(s): Colonoscopy Past Anesthesia/Blood Transfusion Reactions: No Reported Reaction Past Psychological History: No Psychological Hx Reported Smoking Status: Never smoker Past Alcohol Use History: None Reported Past Drug Use History: None Reported - Past Family History Mother Family Medical History: No Reported History Course Vital Signs 03/03/20 03/03/20 03/03/20 13:47 14:00 14:15 Temperature 98.1 F Pulse Rate 92 85 81 Respiratory 18 18 18 Rate Blood Pressure 170/108 133/89 149/83 O2 Sat by Pulse 95 97 98 Oximetry 03/03/20 14:54 Temperature Pulse Rate 84 Respiratory 18 Rate Blood Pressure 129/53 O2 Sat by Pulse 97 Oximetry - Reevaluation(s) Reevaluation #1: 03/03/20 15:34 Reevaluation patient finds it feels much improved numbness is resolved at this time. She was found to be hypocalcemic. She does have a history of this. She states she was on Tums but could not tolerate them. Disposition Clinical Impression: Hypocalcemia, Paresthesia, Coagulopathy, Elevated troponin Disposition: ADMITTED IP TO THIS HOSP Condition: Fair Referrals: Sebastián Frazier MD [Primary Care Provider] - 1-2 days
--- NOTE | 2020-03-03 15:09 | XR ---
EXAMINATION TYPE: XR chest 2V DATE OF EXAM: 03/03/2020 COMPARISON: 02/01/2020 HISTORY: Altered mental status TECHNIQUE: FINDINGS: There is no heart failure nor confluent pneumonic infiltrate. Costophrenic angles are clear . There is spurring in the thoracic spine. Thoracic aorta is atheromatous. There is small hiatal hernia. IMPRESSION: No active cardiopulmonary disease. Normal heart. No change.
--- NOTE | 2020-03-03 15:21 | CT ---
EXAMINATION TYPE: CT angio head neck DATE OF EXAM: 03/03/2020 COMPARISON: 02/01/2020 HISTORY: Left sided arm weakness CT DLP: 674.8 mGycm Automated exposure control for dose reduction was used. CONTRAST: Performed with IV Contrast, patient injected with 65 mL of Isovue 370. Images were obtained from the aortic arch to the vertex of the brain with IV contrast and 3-D post pr ocessed images. There is normal branching pattern of the great vessels on the aortic arch. There is bilateral arteria l flow in the subclavian arteries. There is arterial flow in the common internal and external carotid arteries bilaterally. There is wide patency of the carotid artery bifurcations. There is arterial fl ow in the right vertebral artery. No flow is seen in the left vertebral artery. Basilar artery fills from the right vertebral artery. There is no evidence of carotid or vertebral artery aneurysm. There is arterial flow in the anterior middle and posterior cerebral arteries. There is normal contra st opacification of the venous sinuses. I see no evidence of hemodynamic stenosis. There is no mass e ffect. There is no sign of aneurysm or neovascularity. 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 Otherwise negative CT angiogram of the brain and nec k. No change compared to recent exam.
[2020-03-03] MEDS ORDERED: SODIUM CHLORIDE 0.9% IV ONE (15:55)
[2020-03-03] MEDS ORDERED: CALCIUM CHLORIDE IV ONE (15:55)
[2020-03-03] MEDS ORDERED: NALOXONE 0.4 MG/ML 1 ML VIAL IV PRN (16:00)
[2020-03-03] MEDS ORDERED: ALBUTEROL NEBULIZED 2.5 MG/3 ML INHALATION PRN (16:02)
[2020-03-03] MEDS ORDERED: MECLIZINE 12.5 MG TAB PO PRN (16:02)
[2020-03-03] MEDS: SODIUM CHLORIDE 0.9% 1,000 ML IV SCH (16:36)
[2020-03-03] MEDS ORDERED: CALCIUM CHLORIDE 1 GM/10 ML VIAL ONE (16:36)
[2020-03-03] MEDS ORDERED: CALCIUM CHLORIDE 100 MG/ML 10 ML VIAL ONE (16:36)
[2020-03-03] MEDS: MONTELUKAST 10 MG TAB PO SCH (20:10)
[2020-03-03] MEDS: ACETAMINOPHEN TAB 500 MG TAB PO PRN (20:10)
[2020-03-03] MEDS: atenoloL 25 MG TAB PO SCH (20:10)
[2020-03-04] MEDS: SODIUM CHLORIDE 0.9% 1,000 ML IV SCH ×2 (03:07→21:41)
[2020-03-04 07:09] LABS: Basophils # (A) 0.1 k/uL (0-0.2); Basophils % (A) 1 %; Eosinophils # (A) 0.4 k/uL (0-0.7); Eosinophils % (A) 4 %; HCT 36.9 % (34.0-46.0); HGB 11.7 gm/dL (11.4-16.0); Hypochromasia Moderate; Lymphocytes # (A) 1.3 k/uL (1.0-4.8); Lymphocytes % (A) 13 %; MCH 31.3 pg (25.0-35.0); MCHC 31.6 g/dL (31.0-37.0); MCV 99.2 fL (80.0-100.0); Mean Platelet Volume 7.9; Monocytes # (A) 0.4 k/uL (0-1.0); Monocytes % (A) 4 %; Neutrophils # (A) 8.2 k/uL (1.3-7.7); Neutrophils % (A) 78 %; Platelet Count 229 k/uL (150-450); RBC 3.72 m/uL (3.80-5.40); RDW 12.7 % (11.5-15.5); WBC 10.5 k/uL (3.8-10.6)
[2020-03-04 07:22] LABS: Calcium 7.5 mg/dL (8.4-10.2); Potassium 3.4 mmol/L (3.5-5.1)
[2020-03-04 07:31] LABS: Magnesium 0.5 mg/dL (1.6-2.3)
[2020-03-04] MEDS ORDERED: Potassium Replacement Protocol 1 EACH MISC MISCELLANE PRN (08:14)
[2020-03-04] MEDS ORDERED: Magnesium Replacement Protocol 1 EACH MISC MISCELLANE PRN (08:14)
[2020-03-04] MEDS ORDERED: CALCIUM CHLORIDE IV ONE (08:30)
[2020-03-04] MEDS ORDERED: SODIUM CHLORIDE 0.9% IV ONE (08:30)
[2020-03-04] MEDS: ASPIRIN 81 MG PO SCH (08:41)
[2020-03-04] MEDS: ATORVASTATIN 10 MG TAB PO SCH (08:41)
[2020-03-04] MEDS: PANTOPRAZOLE 40 MG TABLET PO SCH (08:42)
[2020-03-04] MEDS: atenoloL 25 MG TAB PO SCH ×2 (08:42→21:40)
[2020-03-04] MEDS: POTASSIUM CHLORIDE ER 20 MEQ TAB.ER PO SCH ×2 (08:42→11:24)
[2020-03-04] MEDS: LOSARTAN 50 MG TAB PO SCH (08:42)
[2020-03-04] MEDS: MAGNESIUM SULFATE-D5W PMX 1 GM in DEXTROSE/WATER 1 100ML.BAG IVPB SCH ×4 (08:42→14:44)
--- NOTE | 2020-03-04 10:16 | P.CRDCN ---
History of Present Illness Consult date: 03/04/20 History of present illness: CHIEF COMPLAINT: Elevated troponin HISTORY OF PRESENT ILLNESS: 69-year-old female with a history of paroxysmal atrial fibrillation, hypertension, hyperlipidemia, and CVA who presented to the emergency room secondary to left-sided numbness and headache. Patient follows up outpatient with Dr. Zavala. Patient examined this morning at bedside. She reports feeling nauseated and and has been having some dry heaves this morning. No emesis. She reports some shortness of breath with exertion to the bathroom this morning. She denies any chest pain or pressure. She states around 8 PM last night her left-sided numbness resolved. Patient's INR is 6.9 upon admission. Patient was recently hospitalized secondary to stroke like symptoms. At that time patient's INR was subtherapeutic. Her dose of Coumadin was adjusted to 4 mg daily and she was discharged home on Lovenox for 5 days. She states she followed up with her primary care physician and her INR was checked and was found to be therapeutic at that time. She states her dose has not been adjusted since leaving the hospital. DIAGNOSTICS: EKG reveals sinus rhythm. personnel monitor this morning reveals A. fib with mildly uncontrolled heart rate. Chest xray negative for acute process CTA: Occlusion of left vertebral artery. Otherwise negative CT of brain and neck. CT brain: Old left cerebellar infarct Laboratory data: WBC 10.5. Hemoglobin 11.7. Platelet count 229. Sodium 141. Sodium 141. Potassium 3.4. BUN 14. Creatinine 0.79. Magnesium 0.5. Calcium 7.0. Troponin 0.038. 0.040. Current home cardiac medications include Coumadin, lovastatin 40 mg daily, atenolol 50 mg twice a day, aspirin 81 mg daily, Cozaar 100 mg daily Echocardiogram completed 02/02/2020 revealed ejection fraction between 50 and 55% REVIEW OF SYSTEMS: CONSTITUTIONAL: Denies fever or chills. HEENT: Denies blurred vision, vision changes, or eye pain. Denies hemoptysis CARDIOVASCULAR: Denies chest pain, orthopnea, PND or palpitations RESPIRATORY: Reports shortness of breath with exertion GASTROINTESTINAL: Denies abdominal pain. Reports nausea and dry heaves HEMATOLOGIC: Denies bleeding disorders. GENITOURINARY: Denies any blood in urine. SKIN: Denies pruitis. Denies rash. PHYSICAL EXAM: VITAL SIGNS: Reviewed. GENERAL: Well-developed in no acute distress. HEENT: Head is normocephalic. Pupils are equal, round. Sclerae anicteric. Mucous membranes of the mouth are moist. Neck supple. No JVD or thyromegaly LUNGS: Respirations even and unlabored. Lungs essentially clear to auscultation bilaterally. HEART: Irregular rate and rhythm. S1 and S2 heard. ABDOMEN: Soft. Nondistended. Nontender. EXTREMITIES: Normal range of motion. No clubbing or cyanosis. Peripheral pulses intact. No lower extremity edema NEUROLOGIC: Awake and alert. Oriented x 3. ASSESSMENT: Left sided facial and arm numbness, possible TIA, resolved Paroxysmal atrial fibrillation Supratherapeutic INR/Coumadin coagulopathy Abnormal troponins of unclear significance Hypocalcemia Hypomagnesemia Hypertension Hyperlipidemia History of CVA Obesity: BMI 39.0 PLAN: Continue current cardiac medications Replace electrolytes Hold Coumadin. Monitor INR Patient was checked for coverage on Eliquis during previous hospitalization and was not covered by her insurance Repeat 2-D echo to assess for any wall abnormalities Further recommendations pending patient's course Nurse practitioner note has been reviewed by physician. Signing provider agrees with the documented findings, assessment, and plan of care. Past Medical History Past Medical History: Atrial Fibrillation, Asthma, COPD, CVA/TIA, GERD/Reflux, Hyperlipidemia, Hypertension Additional Past Medical History / Comment(s): Hx stroke 1999 and January 2020; left sided weakness; oxygen at night and inhaler and breathing treatments four times a day if needed History of Any Multi-Drug Resistant Organisms: None Reported Past Surgical History: Appendectomy, Section, Cholecystectomy, Hernia Repair, Orthopedic Surgery Additional Past Surgical History / Comment(s): Colonoscopy; right knee surgery Past Anesthesia/Blood Transfusion Reactions: No Reported Reaction Smoking Status: Never smoker - Past Family History Mother Family Medical History: No Reported History Additional Family Medical History / Comment(s): mother is 92 years old and still living, takes no medications. Father Family Medical History: Asthma, Coronary Artery Disease (CAD), CVA/TIA Additional Family Medical History / Comment(s): at age 65 due to asth ma/breathing issues Medications and Allergies Home Medications Medication Instructions Recorded Confirmed Type Albuterol Nebulized [Ventolin 2.5 mg INHALATION RT-QID PRN 04/23/18 03/03/20 History Nebulized] Lovastatin [Mevacor] 40 mg PO DAILY 04/23/18 03/03/20 History Albuterol Inhaler [Ventolin Hfa 2 puff INHALATION RT-Q6H PRN 02/01/20 03/03/20 History Inhaler] Meclizine [Antivert] 12.5 mg PO HS 02/01/20 03/03/20 History Montelukast Sodium [Singulair] 10 mg PO HS 02/01/20 03/03/20 History Omeprazole [PriLOSEC] 40 mg PO DAILY 02/01/20 03/03/20 History Aspirin 81 mg PO DAILY chew 02/03/20 03/03/20 Rx Atenolol [Tenormin] 50 mg PO BID 03/03/20 03/03/20 History Losartan Potassium [Cozaar] 100 mg PO DAILY 03/03/20 03/03/20 History Warfarin Sodium 4 mg PO DAILY@1800 03/03/20 03/03/20 History Allergies Allergy/AdvReac Type Severity Reaction Status Date / Time theophylline [From Mohit-Dur] AdvReac Rapid Verified 03/03/20 16:38 Heart Rate Physical Exam Vitals: Vital Signs Temp Pulse Pulse Resp BP BP Pulse Ox 03/04/20 03:18 97.8 F 73 22 149/87 92 L 03/04/20 00:00 98 F 80 18 152/93 96 03/03/20 20:00 98.1 F 77 18 166/90 95 03/03/20 18:02 96.1 F L 83 18 149/96 93 L 03/03/20 16:34 79 18 134/83 98 03/03/20 14:54 84 18 129/53 97 03/03/20 14:15 81 18 149/83 98 03/03/20 14:00 85 18 133/89 97 03/03/20 13:47 98.1 F 92 18 170/108 95 Intake and Output 03/03/20 03/04/20 03/04/20 22:59 06:59 14:59 Intake Total 240 Balance 240 Intake: Oral 240 Other: Voiding Method Toilet # Voids 1 1 Weight 95.254 kg 95.2 kg Results 03/04/20 06:24 03/04/20 06:24 Cardiac Enzymes 03/03/20 03/03/20 03/04/20 Range/Units 14:08 14:08 06:24 AST 34 (14-36) U/L Troponin I 0.038 H* 0.040 H* (0.000-0.034) ng/mL Coagulation 03/03/20 Range/Units 14:08 PT 70.6 H (9.0-12.0) sec APTT 46.9 H (22.0-30.0) sec CBC 03/03/20 03/04/20 Range/Units 14:08 06:24 WBC 11.0 H 10.5 (3.8-10.6) k/uL RBC 3.85 3.72 L (3.80-5.40) m/uL Hgb 12.2 11.7 (11.4-16.0) gm/dL Hct 37.7 36.9 (34.0-46.0) % Plt Count 278 229 (150-450) k/uL Comprehensive Metabolic Panel 03/03/20 03/04/20 Range/Units 14:08 06:24 Sodium 140 141 (137-145) mmol/L Potassium 3.9 3.4 L (3.5-5.1) mmol/L Chloride 105 104 (98-107) mmol/L Carbon Dioxide 25 28 (22-30) mmol/L BUN 15 14 (7-17) mg/dL Creatinine 0.83 0.79 (0.52-1.04) mg/dL Glucose 120 H 135 H (74-99) mg/dL Calcium 7.0 L 7.5 L (8.4-10.2) mg/dL AST 34 (14-36) U/L ALT 13 (4-34) U/L Alkaline Phosphatase 71 (38-126) U/L Total Protein 7.3 (6.3-8.2) g/dL Albumin 4.0 (3.5-5.0) g/dL Current Medications Generic Name Dose Route Start Last Admin Trade Name Freq PRN Reason Stop Dose Admin Acetaminophen 500 mg 03/03/20 16:02 03/03/20 20:10 Tylenol Tab PO 500 mg BID PRN Administration Pain Albuterol Sulfate 2.5 mg 03/03/20 16:02 Ventolin Nebulized INHALATION RT-QID PRN Shortness Of Breath Aspirin 81 mg 03/04/20 09:00 03/04/20 08:41 Aspirin PO 81 mg DAILY TOSIN Administration Atenolol 25 mg 03/03/20 21:00 03/04/20 08:42 Tenormin PO 25 mg BID TOSIN Administration Atorvastatin Calcium 10 mg 03/04/20 09:00 03/04/20 08:41 Lipitor PO 10 mg DAILY TOSIN Administration Sodium Chloride 1,000 mls @ 80 mls/hr 03/03/20 16:00 03/04/20 03:07 Saline 0.9% IV 80 mls/hr .[id number] TOSIN Administration Magnesium Sulfate/Dextrose 1 100 mls @ 100 mls/hr 03/04/20 08:15 03/04/20 0 8:42 gm/ IV Solution IVPB 03/04/20 12:14 100 mls/hr Q1H TOSIN Administration Calcium Chloride 950 mg/ 109.5 mls @ 100 mls/hr 03/04/20 08:30 Sodium Chloride IV 03/04/20 09:35 ONCE ONE Losartan Potassium 50 mg 03/04/20 09:00 03/04/20 08:42 Cozaar PO 50 mg DAILY TOSIN Administration Meclizine HCl 12.5 mg 03/03/20 16:02 Antivert PO HS PRN dizziness Miscellaneous Information 1 each 03/04/20 08:14 Potassium Per Protocol MISCELLANE DAILY PRN Per Protocol Protocol Miscellaneous Information 1 each 03/04/20 08:14 Magnesium Per Protocol MISCELLANE DAILY PRN Per Protocol Protocol Montelukast Sodium 10 mg 03/03/20 21:00 03/03/20 20:10 Singulair PO 10 mg HS TOSIN Administration Naloxone HCl 0.2 mg 03/03/20 16:00 Narcan IV Q2M PRN Opioid Reversal Pantoprazole Sodium 40 mg 03/04/20 09:00 03/04/20 08:42 Protonix PO 40 mg DAILY TOSIN Administration Potassium Chloride 20 meq 03/04/20 09:00 03/04/20 08:42 K-Dur 20 PO 03/04/20 10:01 20 meq Q1HR TOSIN Administration Protocol Intake and Output 03/03/20 03/04/20 03/04/20 22:59 06:59 14:59 Intake Total 240 Balance 240 Intake: Oral 240 Other: Voiding Method Toilet # Voids 1 1 Weight 95.254 kg 95.2 kg 03/04/20 06:24 03/04/20 06:24
--- NOTE | 2020-03-04 10:50 | HP ---
HISTORY AND PHYSICAL A 69-year-old white female came into the emergency room with TIA type symptomatology versus CVA with left facial numbness that started about 4 hours prior to arrival. Frontal headache. Denies any focal weakness of upper or lower extremities. No fever, chills, blurred vision. She is admitted and she was found to have elevated troponin and severe hypocalcemia, hypomagnesemia, hypocalcemia. She was admitted for replacement with Endocrine consult and evaluation of the numbness and elevated troponin by Cardiology. Recent history of a TIA recently and coronary artery disease, hypertension, asthma, vertigo for which she takes Antivert. MEDICATIONS: Home medicines include Lopid 600 daily, Prilosec 40 daily, Singulair 10 mg daily, Antivert 12.5 q.h.s., Cozaar 50 mg a day, Ventolin HFA 2 puffs q.4h p.r.n., atenolol 25 b.i.d., Mevacor 40 daily, Ventolin nebulized q.i.d. ALLERGIES: THEODUR. REVIEW OF SYSTEMS: Fourteen-point review of systems negative except for mentioned in HPI. Review of systems otherwise negative. PHYSICAL EXAMINATION: GENERAL: Well-nourished, alert, orient x3. HEAD: Normocephalic, atraumatic. Pupils equal, round, reactive to light and accommodation. CARDIOVASCULAR: S1, S2. LUNGS: Clear. ABDOMEN: Soft. ENDOCRINE: BMI is over 30. Distended abdomen. EXTREMITIES: Normal inspection. Full range of motion. BACK: Normal to inspection. NEUROLOGIC: Alert and orient x3. PSYCH: Fair mood and affect. SKIN: Warm, dry, intact. LABORATORY DATA: White count 11, hemoglobin 12.2, platelets 278. Sodium 140, potassium 3.9, BUN 15, creatinine 0.83. INR high at 6.9, calcium is low at 6. Creatine kinase 173, glucose 120. Troponin 0.038. ASSESSMENT: 1. History is atrial fibrillation. 2. Elevated pro-time. 3. Asthma. 4. Chronic obstructive pulmonary disease. 5. Cerebrovascular accident. 6. Transient ischemic attack .. 7. Hypokalemia. 8. Hypomagnesemia. 9. Hypocalcemia. 10.Gastroesophageal reflux disease. 11.Dyslipidemia. 12.Prior strokes. 13.Paresthesias secondary to hypocalcemia, hypomagnesemia. 14.Elevated troponin. PLAN: Cardiology will evaluate. General Practitioner to evaluate and replace electrolytes. Watch closely. MMODL / IJN: [id number] /
[2020-03-04] MEDS ORDERED: CALCIUM CHLORIDE 100 MG/ML 10 ML VIAL ONE (10:57)
[2020-03-04] MEDS ORDERED: CALCIUM CHLORIDE 1 GM/10 ML VIAL ONE (10:57)
[2020-03-04 11:10] LABS: Prothrombin Time 67.1 sec (9.0-12.0)
[2020-03-04 11:19] LABS: INR 6.6 (<1.2)
[2020-03-04] MEDS ORDERED: PHYTONADIONE ORAL 5 MG/5 ML ORAL.SYRG PO STA (12:24)
[2020-03-04] MEDS: ACETAMINOPHEN TAB 500 MG TAB PO PRN (14:44)
[2020-03-04] MEDS: MONTELUKAST 10 MG TAB PO SCH (21:40)
[2020-03-05] MEDS: ACETAMINOPHEN TAB 500 MG TAB PO PRN ×3 (02:52→22:04)
[2020-03-05] MEDS: SODIUM CHLORIDE 0.9% 1,000 ML IV SCH ×2 (06:43→17:55)
[2020-03-05 06:57] LABS: INR 1.7 (<1.2); Prothrombin Time 16.6 sec (9.0-12.0)
[2020-03-05 07:01] LABS: Basophils # (A) 0.1 k/uL (0-0.2); Basophils % (A) 1 %; Eosinophils # (A) 0.4 k/uL (0-0.7); Eosinophils % (A) 4 %; HCT 33.8 % (34.0-46.0); HGB 10.8 gm/dL (11.4-16.0); Hypochromasia Moderate; Lymphocytes # (A) 1.4 k/uL (1.0-4.8); Lymphocytes % (A) 15 %; MCH 31.5 pg (25.0-35.0); MCV 98.5 fL (80.0-100.0); Mean Platelet Volume 7.6; Monocytes # (A) 0.4 k/uL (0-1.0); Monocytes % (A) 4 %; Neutrophils % (A) 75 %; Platelet Count 235 k/uL (150-450); RBC 3.43 m/uL (3.80-5.40); RDW 12.9 % (11.5-15.5); WBC 9.3 k/uL (3.8-10.6)
[2020-03-05 07:27] LABS: Albumin 3.5 g/dL (3.5-5.0); Calcium 7.7 mg/dL (8.4-10.2); Magnesium 1.4 mg/dL (1.6-2.3); Potassium 3.5 mmol/L (3.5-5.1); Total Bilirubin 1.4 mg/dL (0.2-1.3); Total Protein 6.3 g/dL (6.3-8.2)
[2020-03-05] MEDS: ASPIRIN 81 MG PO SCH (09:35)
[2020-03-05] MEDS: LOSARTAN 50 MG TAB PO SCH (09:35)
[2020-03-05] MEDS: atenoloL 25 MG TAB PO SCH ×2 (09:35→22:05)
[2020-03-05] MEDS: ATORVASTATIN 10 MG TAB PO SCH (09:35)
[2020-03-05] MEDS: PANTOPRAZOLE 40 MG TABLET PO SCH (09:35)
[2020-03-05] MEDS ORDERED: MAGNESIUM SULFATE-D5W PMX 1 GM in DEXTROSE/WATER 1 100ML.BAG IVPB ONE (10:53)
--- NOTE | 2020-03-05 11:47 | P.PN ---
Subjective Progress Note Date: 03/05/20 CHIEF COMPLAINT: Elevated troponin HISTORY OF PRESENT ILLNESS: Patient examined this morning at bedside. She states she has not had any further left-sided weakness or numbness. She denies chest pain or pressure. Denies shortness of breath. She received vitamin K yesterday per her PCP. INR today is 1.7. Her Cozaar and her atenolol were also decreased by Dr. Frazier PHYSICAL EXAM: VITAL SIGNS: Reviewed. GENERAL: Well-developed in no acute distress. HEENT: Head is normocephalic. Pupils are equal, round. Sclerae anicteric. Mucous membranes of the mouth are moist. Neck supple. No JVD or thyromegaly LUNGS: Respirations even and unlabored. Lungs essentially clear to auscultation bilaterally. HEART: Irregular rate and rhythm. S1 and S2 heard. ABDOMEN: Soft. Nondistended. Nontender. EXTREMITIES: Normal range of motion. No clubbing or cyanosis. Peripheral pulses intact. No lower extremity edema NEUROLOGIC: Awake and alert. Oriented x 3. ASSESSMENT: Left sided facial and arm numbness, possible TIA, resolved Paroxysmal atrial fibrillation Supratherapeutic INR/Coumadin coagulopathy Abnormal troponins of unclear significance Hypocalcemia Hypomagnesemia Hypertension Hyperlipidemia History of CVA Obesity: BMI 39.0 PLAN: Continue current cardiac medications Patient was checked for coverage on Eliquis during previous hospitalization and was not covered by her insurance Resume Coumadin. Monitor INR Supplement magnesium 2-D echo ordered. Await results. Possible discharge home tomorrow Nurse practitioner note has been reviewed by physician. Signing provider agrees with the documented findings, assessment, and plan of care. Objective - Vital Signs Vital signs: Vital Signs Temp 97.8 F 03/05/20 08:50 Pulse 87 03/05/20 08:50 Resp 18 03/05/20 08:50 BP 138/87 03/05/20 08:50 Pulse Ox 94 L 03/05/20 08:50 Intake & Output 03/04/20 03/05/20 03/05/20 18:59 06:59 18:59 Intake Total 360 480 Output Total 1000 Balance 360 -1000 480 Weight 96.7 kg Intake: Oral 360 480 Output: Urine 1000 Other: Voiding Method Toilet # Voids 4 1 - Labs CBC & Chem 7: 03/05/20 05:58 03/05/20 05:58 Labs: Abnormal Lab Results - Last 24 Hours (Table) 03/04/20 03/05/20 03/05/20 Range/Units 10:23 05:58 05:58 RBC (3.80-5.40) m/uL Hgb (11.4-16.0) gm/dL Hct (34.0-46.0) % PT 67.1 H 16.6 H (9.0-12.0) sec INR 6.6 H* 1.7 H (<1.2) Glucose 113 H (74-99) mg/dL Calcium 7.7 L (8.4-10.2) mg/dL Magnesium 1.4 L (1.6-2.3) mg/dL Total Bilirubin 1.4 H (0.2-1.3) mg/dL 03/05/20 Range/Units 05:58 RBC 3.43 L (3.80-5.40) m/uL Hgb 10.8 L (11.4-16.0) gm/dL Hct 33.8 L (34.0-46.0) % PT (9.0-12.0) sec INR (<1.2) Glucose (74-99) mg/dL Calcium (8.4-10.2) mg/dL Magnesium (1.6-2.3) mg/dL Total Bilirubin (0.2-1.3) mg/dL
--- NOTE | 2020-03-05 12:47 | ECHOF ---
Referral Reason:LV function MEASUREMENTS -------- HEIGHT: 156.2 cm WEIGHT: 94.8 kg BP: 157/83 RVIDd: 2.8 cm (< 3.3) IVSd: 1.5 cm (0.6 - 1.1) LVIDd: 4.7 cm (3.9 - 5.3) LVPWd: 1.4 cm (0.6 - 1.1) IVSs: 1.8 cm LVIDs: 3.7 cm LVPWs: 1.9 cm LA Diam: 3.2 cm (2.7 - 3.8) LAESV Index (A-L): 34.29 ml/m Ao Diam: 3.4 cm (2.0 - 3.7) AV Cusp: 1.4 cm (1.5 - 2.6) MV EXCURSION: 14.751 mm (> 18.000) MV EF SLOPE: 49 mm/s (70 - 150) EPSS: 1.2 cm RAP: 15.00 mmHg RVSP: 63.37 mmHg FINDINGS -------- Atrial fibrillation. This was a technically difficult study with suboptimal views. The left ventricular size is normal. There is moderate concentric left ventricular hypertrophy. O verall left ventricular systolic function is mild-moderately impaired with, an EF between 40 - 45 %. The right ventricle is normal in size. LA is moderately dilated 34-39 ml/m2 The right atrium is normal in size. 5.0mg of Lumason was utilized for enhancement of images Interatrial and interventricular septum intact. There is mild aortic valve sclerosis. Trace amount of aortic regurgitation. Mild mitral annular calcification present. Mild mitral regurgitation is present. Moderate tricuspid regurgitation present. There is severe pulmonary hypertension. The right ventr icular systolic pressure, as measured by Doppler, is 63.37mmHg. Trace/mild (physiologic) pulmonic regurgitation. The aortic root size is normal. The inferior vena cava is dilated with no significant inspiratory collapse which is consistent estima stephenie right atrial pressure of >15 mmHg. There is no pericardial effusion. CONCLUSIONS -------- 1. This was a technically difficult study with suboptimal views. 2. The left ventricular size is normal. 3. There is moderate concentric left ventricular hypertrophy. 4. Overall left ventricular systolic function is mild-moderately impaired with, an EF between 40 - 45 %. 5. LA is moderately dilated 34-39 ml/m2 6. 5.0mg of Lumason was utilized for enhancement of images 7. There is mild aortic valve sclerosis. 8. Trace amount of aortic regurgitation. 9. Mild mitral annular calcification present. 10. Mild mitral regurgitation is present. 11. Moderate tricuspid regurgitation present. 12. There is severe pulmonary hypertension. 13. The right ventricular systolic pressure, as measured by Doppler, is 63.37mmHg. 14. Trace/mild (physiologic) pulmonic regurgitation. 15. The inferior vena cava is dilated with no significant inspiratory collapse which is consistent es timated right atrial pressure of >15 mmHg. 16. There is no pericardial effusion. ACCOUNT REVIEW SPECIALIST: Alexandra Diaz RDCS
[2020-03-05] MEDS: MAGNESIUM SULFATE-D5W PMX 1 GM in DEXTROSE/WATER 1 100ML.BAG IVPB SCH ×3 (13:57→16:33)
[2020-03-05 16:35] VITALS: RESP 18
[2020-03-05] MEDS ORDERED: WARFARIN 2 MG TAB PO SCH (18:00)
[2020-03-05] MEDS ORDERED: WARFARIN 2.5 MG TAB PO SCH (18:00)
[2020-03-05] MEDS: MONTELUKAST 10 MG TAB PO SCH (22:05)
--- NOTE | 2020-03-06 04:12 | PN ---
PROGRESS NOTE Her left-sided weakness and numbness is much better and denies any chest pain or shortness of breath. INR is 1.7. Vital signs are reviewed. CARDIOVASCULAR: S1, S2. LUNGS: Clear. GI: Soft. HEMATOLOGY:Negative Homans. NEUROLOGIC: Cranial nerves intact. ASSESSMENT: 1. Transient ischemic attack. 2. Hypocalcemia. 3. Hypokalemia. 4. Hypomagnesemia. Echo shows ejection fraction 40% to 45%. Await for Cardiology recommendations prior to discharge. I will given her Eliquis in my office samples, get her off Coumadin as she has twice now has been elevated Coumadin this time and she was low Coumadin before which caused a stroke. MMODL / IJN: [id number] /
[2020-03-06 08:13] LABS: Basophils # (A) 0.1 k/uL (0-0.2); Basophils % (A) 1 %; Eosinophils # (A) 0.5 k/uL (0-0.7); Eosinophils % (A) 5 %; HCT 35.8 % (34.0-46.0); Hypochromasia Moderate; Lymphocytes # (A) 1.5 k/uL (1.0-4.8); Lymphocytes % (A) 16 %; MCH 30.7 pg (25.0-35.0); MCHC 30.8 g/dL (31.0-37.0); MCV 99.5 fL (80.0-100.0); Mean Platelet Volume 7.8; Monocytes # (A) 0.4 k/uL (0-1.0); Monocytes % (A) 4 %; Neutrophils # (A) 6.8 k/uL (1.3-7.7); Neutrophils % (A) 73 %; Platelet Count 250 k/uL (150-450); WBC 9.4 k/uL (3.8-10.6)
[2020-03-06 08:21] LABS: INR 1.2 (<1.2); Prothrombin Time 11.8 sec (9.0-12.0)
[2020-03-06 08:36] LABS: ALT 13 U/L (4-34); AST 26 U/L (14-36); African American GFR (CKD) >90 (>60 ml/min/1.73 sqM); Albumin 3.8 g/dL (3.5-5.0); Alkaline Phosphatase 85 U/L (38-126); Anion Gap 9 mmol/L; Blood Urea Nitrogen 12 mg/dL (7-17); Calcium 7.5 mg/dL (8.4-10.2); Carbon Dioxide 27 mmol/L (22-30); Chloride 106 mmol/L (98-107); Glucose 119 mg/dL (74-99); Magnesium 1.8 mg/dL (1.6-2.3); Non-African American GFR(CKD) 84 (>60 ml/min/1.73 sqM); Potassium 4.1 mmol/L (3.5-5.1); Sodium 142 mmol/L (137-145); Total Bilirubin 1.3 mg/dL (0.2-1.3); Total Protein 6.9 g/dL (6.3-8.2)
[2020-03-06] MEDS ORDERED: LOSARTAN 50 MG TAB PO SCH (10:00)
[2020-03-06] MEDS ORDERED: atenoloL 50 MG TAB PO SCH ×2 (10:15→21:00)
[2020-03-06] MEDS: ATORVASTATIN 10 MG TAB PO SCH (10:25)
[2020-03-06] MEDS: ASPIRIN 81 MG PO SCH (10:26)
[2020-03-06] MEDS: PANTOPRAZOLE 40 MG TABLET PO SCH (10:26)
[2020-03-06] MEDS: LOSARTAN 50 MG TAB PO SCH (10:32)
[2020-03-06] MEDS: atenoloL 25 MG TAB PO SCH (10:32)
[2020-03-06] MEDS ORDERED: APIXABAN 5 MG TAB PO SCH (12:15)
[2020-03-06] MEDS: SODIUM CHLORIDE 0.9% 1,000 ML IV SCH (12:56)
--- NOTE | 2020-03-06 14:07 | P.PN ---
Subjective Progress Note Date: 03/06/20 CHIEF COMPLAINT: Elevated troponin HISTORY OF PRESENT ILLNESS: Patient examined this morning at bedside. She states she has not had any further left-sided weakness or numbness. She denies chest pain or pressure. Denies shortness of breath. Blood pressure elevated this AM and overnight. Echocardiogram revealing ejection fraction between 40 and 45% PHYSICAL EXAM: VITAL SIGNS: Reviewed. GENERAL: Well-developed in no acute distress. HEENT: Head is normocephalic. Pupils are equal, round. Sclerae anicteric. Mucous membranes of the mouth are moist. Neck supple. No JVD or thyromegaly LUNGS: Respirations even and unlabored. Lungs essentially clear to auscultation bilaterally. HEART: Irregular rate and rhythm. S1 and S2 heard. ABDOMEN: Soft. Nondistended. Nontender. EXTREMITIES: Normal range of motion. No clubbing or cyanosis. Peripheral pulses intact. No lower extremity edema NEUROLOGIC: Awake and alert. Oriented x 3. ASSESSMENT: Left sided facial and arm numbness, possible TIA, resolved Paroxysmal atrial fibrillation Supratherapeutic INR/Coumadin coagulopathy Abnormal troponins of unclear significance Hypocalcemia Hypomagnesemia Hypertension Hyperlipidemia History of CVA Obesity: BMI 39.0 PLAN: Patients Cozaar and Atenolol were decreased by Dr. Frazier, however her blood pressure is elevated this morning and overnight. Will change back to patients home dose Patient was checked for coverage on Eliquis during previous hospitalization and was not covered by her insurance. Dr. Frazier has started the patient on Eliquis and per his documentation will provide the patient with samples of Eliquis in the future. May be discharged home today from a cardiac standpoint Nurse practitioner note has been reviewed by physician. Signing provider agrees with the documented findings, assessment, and plan of care. Objective - Vital Signs Vital signs: Vital Signs Temp 97.8 F 03/06/20 08:00 Pulse 88 03/06/20 08:00 Resp 18 03/06/20 08:00 BP 141/96 03/06/20 08:00 Pulse Ox 97 03/06/20 08:00 Intake & Output 03/05/20 03/06/20 03/06/20 18:59 06:59 18:59 Intake Total 1200 240 Output Total 180 Balance 1200 -180 240 Weight 97 kg Intake: Oral 1200 240 Output: Urine 180 Other: Voiding Method Toilet # Voids 2 1 2 - Labs CBC & Chem 7: 03/06/20 07:40 03/06/20 07:40 Labs: Abnormal Lab Results - Last 24 Hours (Table) 03/06/20 03/06/20 03/06/20 Range/Units 07:40 07:40 07:40 RBC 3.60 L (3.80-5.40) m/uL Hgb 11.0 L (11.4-16.0) gm/dL MCHC 30.8 L (31.0-37.0) g/dL INR 1.2 H (<1.2) Glucose 119 H (74-99) mg/dL Calcium 7.5 L (8.4-10.2) mg/dL
[2020-03-06 16:50] VITALS: BP 155/108; PULSE 92; TEMP 98.3
[2020-03-06] MEDS ORDERED: MAGNESIUM OXIDE 400 MG TAB PO SCH (21:00)
[2020-03-06] MEDS ORDERED: POTASSIUM CHLORIDE ER 20 MEQ TAB.ER PO SCH (21:00)
--- NOTE | 2020-03-06 23:53 | DS ---
DISCHARGE SUMMARY DISCHARGE MEDICATIONS: 1. Ventolin nebulized albuterol sulfate 2.5 q.i.d. 2. Eliquis 5 mg b.i.d. 3. Aspirin 81 mg daily. 4. Tenormin 50 mg b.i.d. 5. Lipitor 10 mg daily. 6. Cozaar 100 mg daily. 7. Antivert 12.5 at bedtime. 8. Singulair 10 mg daily. 9. Protonix 40 mg daily. CONDITION: Stable. PROGNOSIS: Guarded. AMBULATE: As tolerated. This 69-year-old white female who was admitted to the hospital with TIA symptomatology and stroke was found to have low magnesium, low potassium secondary to vomiting and diarrhea and dehydration. This patient had severe hypocalcemia, hypomagnesemia, hypokalemia and dehydration secondary to diarrhea caused facial tetany. The patient was improved with multiple replacements of electrolytes and will need medications for possible irritable bowel syndrome and to avoid all dairy at home as she has severe IBS. She had a colonoscopy in the last 2 years, which was negative. This patient was stable for discharge after electrolytes checked. Condition stable. Avoid dairy. Follow up as an outpatient. MMODL / IJN: [id number] /
[2020-03-07] MEDS ORDERED: LOSARTAN 50 MG TAB PO SCH (09:00)
== END 2020-03-06 18:21 | disposition home health service (06) | DRG 641 ==
LOC: EC 13:45 → 3SCARD 16:00
PROVIDERS: ADMIT Family Medicine; ATTEND Family Medicine
DX: E83.42 Hypomagnesemia (principal); I69.354 Hemiplegia and hemiparesis following cerebral infarction affecting left non-dominant side; E83.51 Hypocalcemia; I65.02 Occlusion and stenosis of left vertebral artery; E87.6 Hypokalemia; E66.9 Obesity, unspecified; E78.5 Hyperlipidemia, unspecified; I10 Essential (primary) hypertension; I25.10 Atherosclerotic heart disease of native coronary artery without angina pectoris; I48.0 Paroxysmal atrial fibrillation; J44.9 Chronic obstructive pulmonary disease, unspecified; K21.9 Gastro-esophageal reflux disease without esophagitis; R79.89 Other specified abnormal findings of blood chemistry; R79.1 Abnormal coagulation profile; E86.0 Dehydration; K58.0 Irritable bowel syndrome with diarrhea; Z68.39 Body mass index [BMI] 39.0-39.9, adult; Z79.01 Long term (current) use of anticoagulants; Z79.82 Long term (current) use of aspirin; Z79.899 Other long term (current) drug therapy; Z88.8 Allergy status to other drugs, medicaments and biological substances; Z90.49 Acquired absence of other specified parts of digestive tract; Z98.890 Other specified postprocedural states; Z99.81 Dependence on supplemental oxygen; Z82.49 Family history of ischemic heart disease and other diseases of the circulatory system; Z82.5 Family history of asthma and other chronic lower respiratory diseases; Z82.3 Family history of stroke
CPT/HCPCS: 36415; 70450; 70496; 70498; 71046; 80048; 80053; 82550; 83735; 83970; 84132; 84484; 85025; 85610; 85730; 93005; 93306; 96365; 99285

== ENCOUNTER 2020-06-17 10:10 | Inpatient (IN) | payer MEDICARE, OTHER ==
--- NOTE | 2020-06-17 10:22 | ED ---
General Adult HPI - General Stated complaint: Dizzy/Weakness Time Seen by Provider: 06/17/20 10:22 - History of Present Illness Initial comments: 69-year-old female with history of asthma, COPD, electrolyte abnormalities, A. fib currently treated with eliquis presenting to the emergency department with chief complaint of shortness of breath, nausea, vomiting, and weakness. Patient reports having shortness of breath over the last 6 months but definitely increased over the last few days. She does report dyspnea on exertion particularly when she is moving between rooms. She also reports this is noticeable while she's carrying groceries. Patient also reports having midsternal chest pain today without pain radiation that lasted for about 3 minutes and resolved spontaneously. Patient reports having nausea with multiple episodes of vomitus nonbloody vomiting over the last few days. Patient states she is not able to keep any solids or liquids down. States she has been attempting to eat red Jell-O which is why her mouth is red. Patient states that her tongue feels enlarged and she called her primary care physician who advised her to come to the emergency department for evaluation. She denies any new medications or any foods. She denies any fever or chills at home. Denies any cough, one-sided weakness or paresthesias or blurry vision. Denies abdominal or back pain. Denies hematuria, hematochezia or melena. Denies any urinary or vaginal symptoms. - Related Data Home Medications Medication Instructions Recorded Confirmed Lovastatin [Mevacor] 40 mg PO DAILY 04/23/18 06/17/20 Albuterol Inhaler [Ventolin Hfa 2 puff INHALATION RT-Q6H PRN 02/01/20 06/17/20 Inhaler] Meclizine [Antivert] 12.5 mg PO HS 02/01/20 06/17/20 Montelukast Sodium [Singulair] 10 mg PO HS 02/01/20 06/17/20 Omeprazole [PriLOSEC] 40 mg PO DAILY 02/01/20 06/17/20 Losartan Potassium [Cozaar] 100 mg PO DAILY 03/03/20 06/17/20 Beclomethasone Dipropionate [Qvar 1 puff INHALATION RT-BID 06/17/20 06/17/20 40 mcg Redihaler] amLODIPine [Norvasc] 2.5 mg PO DAILY 06/17/20 06/17/20 Previous Rx's Medication Instructions Recorded Aspirin 81 mg PO DAILY chew 02/03/20 Apixaban [Eliquis] 5 mg PO BID tab 03/06/20 atenoloL [Tenormin] 50 mg PO BID 30 Days #60 tab 03/06/20 Allergies Allergy/AdvReac Type Severity Reaction Status Date / Time theophylline [From [facility]] AdvReac Rapid Verified 06/17/20 10:59 Heart Rate Review of Systems ROS Statement: Those systems with pertinent positive or pertinent negative responses have been documented in the HPI. ROS Other: All systems not noted in ROS Statement are negative. Past Medical History Past Medical History: Atrial Fibrillation, Asthma, COPD, CVA/TIA, GERD/Reflux, Hyperlipidemia, Hypertension Additional Past Medical History / Comment(s): Hx stroke 1999 and January 2020; left sided weakness; oxygen at night and inhaler and breathing treatments four times a day if needed History of Any Multi-Drug Resistant Organisms: None Reported Past Surgical History: Appendectomy, Section, Cholecystectomy, Hernia Repair, Orthopedic Surgery Additional Past Surgical History / Comment(s): Colonoscopy; right knee surgery Past Anesthesia/Blood Transfusion Reactions: No Reported Reaction Smoking Status: Never smoker - Past Family History Mother Family Medical History: No Reported History Additional Family Medical History / Comment(s): mother is 92 years old and still living, takes no medications. Father Family Medical History: Asthma, Coronary Artery Disease (CAD), CVA/TIA Additional Family Medical History / Comment(s): at age 65 due to asthma/breathing issues General Exam Limitations: no limitations General appearance: alert, in no apparent distress, obese Head exam: Present: atraumatic, normocephalic, normal inspection Eye exam: Present: normal appearance, PERRL, EOMI Pupils: Present: normal accommodation ENT exam: Present: normal exam, normal oropharynx, mucous membranes dry, TM's normal bilaterally, normal external ear exam Neck exam: Present: normal inspection, full ROM. Absent: tenderness Respiratory exam: Present: normal lung sounds bilaterally. Absent: respiratory distress, wheezes, rales Cardiovascular Exam: Present: regular rate, normal rhythm, normal heart sounds. Absent: systolic murmur, diastolic murmur GI/Abdominal exam: Present: soft. Absent: distended, tenderness, guarding, rebound Extremities exam: Present: normal inspection, full ROM, normal capillary refill. Absent: tenderness, pedal edema, joint swelling, calf tenderness Back exam: Present: normal inspection, full ROM. Absent: tenderness, CVA tenderness (R), CVA tenderness (L), muscle spasm, paraspinal tenderness, vertebral tenderness, rash noted Neurological exam: Present: alert, oriented X3 Psychiatric exam: Present: normal affect, normal mood Skin exam: Present: warm, dry, intact, normal color Course Vital Signs 06/17/20 06/17/20 06/17/20 10:13 12:00 12:08 Temperature 98.3 F 98 F Pulse Rate 104 H 85 87 Respiratory 18 25 H 18 Rate Blood Pressure 142/103 140/64 126/72 O2 Sat by Pulse 96 94 L 95 Oximetry 06/17/20 06/17/20 12:52 13:00 Temperature Pulse Rate 94 92 Respiratory 18 24 Rate Blood Pressure 140/64 126/72 O2 Sat by Pulse 96 97 Oximetry EKG Findings - EKG Comments: EKG Findings:: A. fib with RVR. Ventricular rate 105, QRS 70, QTC 507. Medical Decision Making - Medical Decision Making 69-year-old female with history of asthma, COPD, electrolyte abnormalities, A. fib currently treated with eliquis presenting to the emergency department with chief complaint of shortness of breath, nausea, vomiting, and weakness. On physical examination, patient is well-appearing resting comfortably in bed. HEENT examination is unremarkable aside from dry mucous membranes. Lungs are clear to auscultation. CBC reveals leukocytosis of 36k . CMP reveals decreased electrolyte levels with low potassium [facility] and calcium. Electrolyte replacement started.patient also has elevated coags. Elevated d-dimer 4.3. Chest x-ray reveals a right middle lobe pneumonia. Initial troponin is negative. EKG showing A. fib with RVR. The heart rate has improved. Patient has stable vitals with sinus rhythm on reevaluation. Patient also started on Rocephin and azithromycin. UA does show mild UTI. Urine culture pending. Elevated lactic of 3.6. Patient does have history of electrolyte normalities and has been admitted previously. negative for influenza and coronavirus. Type and screen pending. CT of the chest was performed with no signs of pulmonary embolism but did receive a phone call from , the radiologist, who is concerned for possible esophageal bleed. Patient continues to have stable blood pressure and she is not anemic. Patient does not have any discomfort at this time. I spoke with who is aware of the patient and he will be consulted. Patient will be admitted for further medical management. Case dis cussed with Dr. Shook. Patient will be admitted to ICU. Admitting physician is Dr.Mullalay Dr Xiao on consult Dr Calabrese on consult - Lab Data Result diagrams: 06/17/20 10:44 06/17/20 10:44 Lab Results 06/17/20 06/17/20 06/17/20 Range/Units 10:44 10:44 10:44 WBC 36.0 H (3.8-10.6) k/uL RBC 4.64 (3.80-5.40) m/uL Hgb 13.8 (11.4-16.0) gm/dL Hct 41.1 (34.0-46.0) % MCV 88.5 (80.0-100.0) fL MCH 29.7 (25.0-35.0) pg MCHC 33.6 (31.0-37.0) g/dL RDW 15.6 H (11.5-15.5) % Plt Count 205 (150-450) k/uL MPV 7.9 Neutrophils % 93 % Lymphocytes % 2 % Monocytes % 4 % Eosinophils % 0 % Basophils % 0 % Neutrophils # 33.3 H (1.3-7.7) k/uL Lymphocytes # 0.8 L (1.0-4.8) k/uL Monocytes # 1.4 H (0-1.0) k/uL Eosinophils # 0.1 (0-0.7) k/uL Basophils # 0.1 (0-0.2) k/uL Manual Slide Review Performed Poikilocytosis (manual Present PT (9.0-12.0) sec INR (<1.2) APTT (22.0-30.0) sec D-Dimer (<0.60) mg/L FEU Sodium 134 L (137-145) mmol/L Potassium 3.1 L (3.5-5.1) mmol/L Chloride 96 L (98-107) mmol/L Carbon Dioxide 24 (22-30) mmol/L Anion Gap 14 mmol/L BUN 20 H (7-17) mg/dL Creatinine 0.96 (0.52-1.04) mg/dL Est GFR (CKD-EPI)AfAm 69 (>60 ml/min/1.73 sqM) Est GFR (CKD-EPI)NonAf 60 (>60 ml/min/1.73 sqM) Glucose 158 H (74-99) mg/dL Lactic Ac Sepsis Rflx Plasma Lactic Acid Wil 3.2 H* (0.7-2.0) mmol/L Calcium 6.7 L (8.4-10.2) mg/dL Phosphorus (2.5-4.5) mg/dL Magnesium <0.4 L* (1.6-2.3) mg/dL Total Bilirubin 2.3 H (0.2-1.3) mg/dL AST 36 (14-36) U/L ALT 18 (4-34) U/L Alkaline Phosphatase 57 (38-126) U/L Lactate Dehydrogenase (313-618) U/L Troponin I (0.000-0.034) ng/mL C-Reactive Protein (<10.0) mg/L Total Protein 7.4 (6.3-8.2) g/dL Albumin 3.9 (3.5-5.0) g/dL Urine Color Urine Appearance (Clear) Urine pH (5.0-8.0) Ur Specific [place] (1.001-1.035) Urine Protein (Negative) Urine Glucose (UA) (Negative) Urine Ketones (Negative) Urine Blood (Negative) Urine Nitrite (Negative) Urine Bilirubin (Negative) Urine Urobilinogen (<2.0) mg/dL Ur Leukocyte Esterase (Negative) Urine RBC (0-5) /hpf Urine WBC (0-5) /hpf Ur Squamous Epith Cells (0-4) /hpf Urine Bacteria (None) /hpf Hyaline Casts (0-2) /lpf Urine Mucus (None) /hpf Influenza Type A (PCR) (Not Detectd) Influenza Type B (PCR) (Not Detectd) RSV (PCR) (Not Detectd) SARS-CoV-2 (PCR) (Not Detectd) 06/17/20 06/17/20 06/17/20 Range/Units 10:44 10:44 10:44 WBC (3.8-10.6) k/uL RBC (3.80-5.40) m/uL Hgb (11.4-16.0) gm/dL Hct (34.0-46.0) % MCV (80.0-100.0) fL MCH (25.0-35.0) pg MCHC (31.0-37.0) g/dL RDW (11.5-15.5) % Plt Count (150-450) k/uL MPV Neutrophils % % Lymphocytes % % Monocytes % % Eosinophils % % Basophils % % Neutrophils # (1.3-7.7) k/uL Lymphocytes # (1.0-4.8) k/uL Monocytes # (0-1.0) k/uL Eosinophils # (0-0.7) k/uL Basophils # (0-0.2) k/uL Manual Slide Review Poikilocytosis (manual PT (9.0-12.0) sec INR (<1.2) APTT (22.0-30.0) sec D-Dimer 4.35 H (<0.60) mg/L FEU Sodium (137-145) mmol/L Potassium (3.5-5.1) mmol/L Chloride (98-107) mmol/L Carbon Dioxide (22-30) mmol/L Anion Gap mmol/L BUN (7-17) mg/dL Creatinine (0.52-1.04) mg/dL Est GFR (CKD-EPI)AfAm (>60 ml/min/1.73 sqM) Est GFR (CKD-EPI)NonAf (>60 ml/min/1.73 sqM) Glucose (74-99) mg/dL Lactic Ac Sepsis Rflx Plasma Lactic Acid Wil (0.7-2.0) mmol/L Calcium (8.4-10.2) mg/dL Phosphorus (2.5-4.5) mg/dL Magnesium (1.6-2.3) mg/dL Total Bilirubin (0.2-1.3) mg/dL AST (14-36) U/L ALT (4-34) U/L Alkaline Phosphatase (38-126) U/L Lactate Dehydrogenase (313-618) U/L Troponin I 0.015 (0.000-0.034) ng/mL C-Reactive Protein (<10.0) mg/L Total Protein (6.3-8.2) g/dL Albumin (3.5-5.0) g/dL Urine Color Urine Appearance (Clear) Urine pH (5.0-8.0) Ur Specific [place] (1.001-1.035) Urine Protein (Negative) Urine Glucose (UA) (Negative) Urine Ketones (Negative) Urine Blood (Negative) Urine Nitrite (Negative) Urine Bilirubin (Negative) Urine Urobilinogen (<2.0) mg/dL Ur Leukocyte Esterase (Negative) Urine RBC (0-5) /hpf Urine WBC (0-5) /hpf Ur Squamous Epith Cells (0-4) /hpf Urine Bacteria (None) /hpf Hyaline Casts (0-2) /lpf Urine Mucus (None) /hpf Influenza Type A (PCR) Not Detected (Not Detectd) Influenza Type B (PCR) Not Detected (Not Detectd) RSV (PCR) Not Detected (Not Detectd) SARS-CoV-2 (PCR) Not Detected (Not Detectd) 06/17/20 06/17/20 06/17/20 Range/Units 10:44 10:44 11:06 WBC (3.8-10.6) k/uL RBC (3.80-5.40) m/uL Hgb (11.4-16.0) gm/dL Hct (34.0-46.0) % MCV (80.0-100.0) fL MCH (25.0-35.0) pg MCHC (31.0-37.0) g/dL RDW (11.5-15.5) % Plt Count (150-450) k/uL MPV Neutrophils % % Lymphocytes % % Monocytes % % Eosinophils % % Basophils % % Neutrophils # (1.3-7.7) k/uL Lymphocytes # (1.0-4.8) k/uL Monocytes # (0-1.0) k/uL Eosinophils # (0-0.7) k/uL Basophils # (0-0.2) k/uL Manual Slide Review Poikilocytosis (manual PT 19.0 H (9.0-12.0) sec INR 2.0 H (<1.2) APTT 31.7 H (22.0-30.0) sec D-Dimer (<0.60) mg/L FEU Sodium (137-145) mmol/L Potassium (3.5-5.1) mmol/L Chloride (98-107) mmol/L Carbon Dioxide (22-30) mmol/L Anion Gap mmol/L BUN (7-17) mg/dL Creatinine (0.52-1.04) mg/dL Est GFR (CKD-EPI)AfAm (>60 ml/min/1.73 sqM) Est GFR (CKD-EPI)NonAf (>60 ml/min/1.73 sqM) Glucose (74-99) mg/dL Lactic Ac Sepsis Rflx Plasma Lactic Acid Wil (0.7-2.0) mmol/L Calcium (8.4-10.2) mg/dL Phosphorus 3.6 (2.5-4.5) mg/dL Magnesium (1.6-2.3) mg/dL Total Bilirubin (0.2-1.3) mg/dL AST (14-36) U/L ALT (4-34) U/L Alkaline Phosphatase (38-126) U/L Lactate Dehydrogenase (313-618) U/L Troponin I (0.000-0.034) ng/mL C-Reactive Protein (<10.0) mg/L Total Protein (6.3-8.2) g/dL Albumin (3.5-5.0) g/dL Urine Color [place] Urine Appearance Cloudy H (Clear) Urine pH 6.0 (5.0-8.0) Ur Specific [place] 1.046 H (1.001-1.035) Urine Protein 2+ H (Negative) Urine Glucose (UA) Trace H (Negative) Urine Ketones Trace H (Negative) Urine Blood Moderate H (Negative) Urine Nitrite Negative (Negative) Urine Bilirubin 1+ H (Negative) Urine Urobilinogen 12.0 (<2.0) mg/dL Ur Leukocyte Esterase Large H (Negative) Urine RBC 18 H (0-5) /hpf Urine WBC 26 H (0-5) /hpf Ur Squamous Epith Cells 2 (0-4) /hpf Urine Bacteria Rare H (None) /hpf Hyaline Casts 11 H (0-2) /lpf Urine Mucus Occasional H (None) /hpf Influenza Type A (PCR) (Not Detectd) Influenza Type B (PCR) (Not Detectd) RSV (PCR) (Not Detectd) SARS-CoV-2 (PCR) (Not Detectd) 06/17/20 06/17/20 Range/Units 11:16 11:56 WBC (3.8-10.6) k/uL RBC (3.80-5.40) m/uL Hgb (11.4-16.0) gm/dL Hct (34.0-46.0) % MCV (80.0-100.0) fL MCH (25.0-35.0) pg MCHC (31.0-37.0) g/dL RDW (11.5-15.5) % Plt Count (150-450) k/uL MPV Neutrophils % % Lymphocytes % % Monocytes % % Eosinophils % % Basophils % % Neutrophils # (1.3-7.7) k/uL Lymphocytes # (1.0-4.8) k/uL Monocytes # (0-1.0) k/uL Eosinophils # (0-0.7) k/uL Basophils # (0-0.2) k/uL Manual Slide Review Poikilocytosis (manual PT (9.0-12.0) sec INR (<1.2) APTT (22.0-30.0) sec D-Dimer (<0.60) mg/L FEU Sodium (137-145) mmol/L Potassium (3.5-5.1) mmol/L Chloride (98-107) mmol/L Carbon Dioxide (22-30) mmol/L Anion Gap mmol/L BUN (7-17) mg/dL Creatinine (0.52-1.04) mg/dL Est GFR (CKD-EPI)AfAm (>60 ml/min/1.73 sqM) Est GFR (CKD-EPI)NonAf (>60 ml/min/1.73 sqM) Glucose (74-99) mg/dL Lactic Ac Sepsis Rflx Y Plasma Lactic Acid Wil (0.7-2.0) mmol/L Calcium (8.4-10.2) mg/dL Phosphorus (2.5-4.5) mg/dL Magnesium 0.5 L* (1.6-2.3) mg/dL Total Bilirubin (0.2-1.3) mg/dL AST (14-36) U/L ALT (4-34) U/L Alkaline Phosphatase (38-126) U/L Lactate Dehydrogenase 1043 H (313-618) U/L Troponin I (0.000-0.034) ng/mL C-Reactive Protein 354.5 H (<10.0) mg/L Total Protein (6.3-8.2) g/dL Albumin (3.5-5.0) g/dL Urine Color Urine Appearance (Clear) Urine pH (5.0-8.0) Ur Specific [place] (1.001-1.035) Urine Protein (Negative) Urine Glucose (UA) (Negative) Urine Ketones (Negative) Urine Blood (Negative) Urine Nitrite (Negative) Urine Bilirubin (Negative) Urine Urobilinogen (<2.0) mg/dL Ur Leukocyte Esterase (Negative) Urine RBC (0-5) /hpf Urine WBC (0-5) /hpf Ur Squamous Epith Cells (0-4) /hpf Urine Bacteria (None) /hpf Hyaline Casts (0-2) /lpf Urine Mucus (None) /hpf Influenza Type A (PCR) (Not Detectd) Influenza Type B (PCR) (Not Detectd) RSV (PCR) (Not Detectd) SARS-CoV-2 (PCR) (Not Detectd) Disposition Clinical Impression: Hypocalcemia, Hypomagnesemia, Hypokalemia, Pneumonia Disposition: ADMITTED IP TO THIS HOSP Condition: Good Is patient prescribed a controlled substance at d/c from ED?: No
[2020-06-17] MEDS ORDERED: SODIUM CHLORIDE 0.9% 500 ML 500 ML IV STA (10:25)
[2020-06-17] MEDS ORDERED: ONDANSETRON 4 MG/2 ML VIAL IVP STA (10:41)
[2020-06-17 11:01] LABS: Basophils # (A) 0.1 k/uL (0-0.2); Basophils % (A) 0 %; Eosinophils # (A) 0.1 k/uL (0-0.7); Eosinophils % (A) 0 %; HCT 41.1 % (34.0-46.0); HGB 13.8 gm/dL (11.4-16.0); Lymphocytes # (A) 0.8 k/uL (1.0-4.8); Lymphocytes % (A) 2 %; MCH 29.7 pg (25.0-35.0); MCHC 33.6 g/dL (31.0-37.0); MCV 88.5 fL (80.0-100.0); Mean Platelet Volume 7.9; Monocytes # (A) 1.4 k/uL (0-1.0); Monocytes % (A) 4 %; Neutrophils # (A) 33.3 k/uL (1.3-7.7); Neutrophils % (A) 93 %; Platelet Count 205 k/uL (150-450); RBC 4.64 m/uL (3.80-5.40); RDW 15.6 % (11.5-15.5)
[2020-06-17 11:11] LABS: ALT 18 U/L (4-34); AST 36 U/L (14-36); African American GFR (CKD) 69 (>60 ml/min/1.73 sqM); Albumin 3.9 g/dL (3.5-5.0); Alkaline Phosphatase 57 U/L (38-126); Anion Gap 14 mmol/L; Blood Urea Nitrogen 20 mg/dL (7-17); Calcium 6.7 mg/dL (8.4-10.2); Carbon Dioxide 24 mmol/L (22-30); Chloride 96 mmol/L (98-107); Glucose 158 mg/dL (74-99); Non-African American GFR(CKD) 60 (>60 ml/min/1.73 sqM); Potassium 3.1 mmol/L (3.5-5.1); Sodium 134 mmol/L (137-145); Total Bilirubin 2.3 mg/dL (0.2-1.3); Total Protein 7.4 g/dL (6.3-8.2)
[2020-06-17] MEDS ORDERED: cefTRIAXone IN SWFI 1,000 MG/10 ML SYRINGE IVP STA (11:16)
[2020-06-17 11:26] LABS: Magnesium <0.4 mg/dL (1.6-2.3)
[2020-06-17 11:29] LABS: Poikilocytosis (M) Present
[2020-06-17] MEDS: MAGNESIUM SULFATE-D5W PMX 1 GM in DEXTROSE/WATER 1 100ML.BAG IVPB SCH ×6 (11:30→21:02)
[2020-06-17 11:36] LABS: Partial Thromboplastin Time 31.7 sec (22.0-30.0)
[2020-06-17] MEDS ORDERED: MAGNESIUM OXIDE 400 MG TAB PO STA (11:38)
[2020-06-17] MEDS ORDERED: POTASSIUM CHLORIDE ER 20 MEQ TAB.ER PO STA (11:38)
--- NOTE | 2020-06-17 11:46 | XR ---
EXAMINATION TYPE: XR chest 2V DATE OF EXAM: 06/17/2020 COMPARISON: 03/03/2020 HISTORY: Shortness of breath TECHNIQUE: Frontal and lateral views of the chest are obtained. FINDINGS: Scattered senescent parenchymal changes noted. Hyperinflation compatible with COPD. Patchy density right medial lung base. Correlate for developing pneumonia. Heart size is stable. Mediastinal structures are stable and grossly unremarkable. No evidence for hilar prominence. Degenerative changes dorsal spine. IMPRESSION: 1. Patchy density right medial lung base. Correlate for developing pneumonia.
--- NOTE | 2020-06-17 11:49 | XR ---
EXAMINATION TYPE: XR soft tissue neck DATE OF EXAM: 06/17/2020 COMPARISON: NONE HISTORY: Glossitis TECHNIQUE: 2 views of the soft tissues of the neck are submitted. FINDINGS: The airway is patent. Normal appearing epiglottis. Retropharyngeal soft tissues are withi n normal limits. No evidence for radiopaque foreign body. IMPRESSION: Negative study
[2020-06-17 11:51] LABS: Appearance,Urine Cloudy (Clear); Bacteria,Urine Rare /hpf; Bilirubin,Urine 1+ (Negative); Blood,Urine Moderate (Negative); Color,Urine Orange; Glucose,Urine (UA) Trace (Negative); Hyaline Casts,Urine 11 /lpf (0-2); Ketones,Urine Trace (Negative); Leukocyte Esterase,Urine Large (Negative); Mucus,Urine Occasional /hpf; Nitrite,Urine Negative (Negative); Protein,Urine 2+ (Negative); RBC,Urine 18 /hpf (0-5); Squamous Epithelial Cell,Urine 2 /hpf (0-4); WBC,Urine 26 /hpf (0-5)
[2020-06-17 11:52] LABS: Specific Gravity,Urine 1.046 (1.001-1.035)
[2020-06-17] MEDS ORDERED: CALCIUM GLUCONATE 1 GM in SODIUM CHLORIDE 0.9% 100 ML IVPB ONE (12:15)
[2020-06-17 12:24] LABS: Magnesium 0.5 mg/dL (1.6-2.3)
[2020-06-17] MEDS ORDERED: NALOXONE 0.4 MG/ML 1 ML VIAL IV PRN (12:46)
[2020-06-17 12:48] LABS: C Reactive Protein 354.5 mg/L (<10.0)
[2020-06-17] MEDS ORDERED: AZITHROMYCIN 250 MG TAB PO STA (12:51)
--- NOTE | 2020-06-17 13:26 | CT ---
EXAMINATION TYPE: CT chest angio for PE DATE OF EXAM: 06/17/2020 COMPARISON: None HISTORY: Dizziness and positive d-dimer CT DLP: 632.4 mGycm Automated exposure control for dose reduction was used. CONTRAST: Performed with IV Contrast, patient injected with 100, wasted 26 mL of Isovue 370. There are 3-D post processed images. The lungs are clear of consolidation. There is no evidence of a pulmonary mass. There is no pleural e ffusion. There is large hiatal hernia. There is no mediastinal adenopathy. There are no hilar masses. Heart is enlarged. There is no pericar dial effusion. There is normal contrast opacification of the pulmonary arteries. There are no filling defects. There is spurring in the thoracic spine. I see no compression fracture. There is 2 cm area of high attenuation in the dependent portion of the hiatal hernia. This could rela te to some contrast extravasation. IMPRESSION: No evidence of pulmonary embolism. No suspicious pulmonary mass. Large hiatal hernia with high attenuation in the dependent hernia and also small focus in the stomach and the possibility of active GI bleeding cannot be excluded. This exam was discussed with Javier at 1:20 PM.
[2020-06-17] MEDS ORDERED: PANTOPRAZOLE 40 MG/10 ML VIAL IVP STA (13:29)
[2020-06-17 13:53] LABS: Basophils # (A) 0.3 k/uL (0-0.2); Basophils % (A) 1 %; Eosinophils # (A) 0.4 k/uL (0-0.7); Eosinophils % (A) 1 %; HCT 39.5 % (34.0-46.0); HGB 12.7 gm/dL (11.4-16.0); Lymphocytes # (A) 0.4 k/uL (1.0-4.8); Lymphocytes % (A) 1 %; MCH 29.1 pg (25.0-35.0); MCHC 32.2 g/dL (31.0-37.0); MCV 90.6 fL (80.0-100.0); Mean Platelet Volume 7.8; Monocytes % (A) 3 %; Neutrophils # (A) 29.2 k/uL (1.3-7.7); Neutrophils % (A) 92 %; Platelet Count 187 k/uL (150-450); RBC 4.36 m/uL (3.80-5.40); RDW 15.6 % (11.5-15.5); WBC 31.6 k/uL (3.8-10.6)
[2020-06-17 14:10] LABS: Albumin 3.5 g/dL (3.5-5.0); Calcium 6.6 mg/dL (8.4-10.2); Magnesium 1.3 mg/dL (1.6-2.3); Total Bilirubin 1.6 mg/dL (0.2-1.3); Total Protein 6.8 g/dL (6.3-8.2)
[2020-06-17 14:38] LABS: Glucose,Whole Blood 126 mg/dL (75-99)
[2020-06-17] MEDS ORDERED: ALBUTEROL NEBULIZED 2.5 MG/3 ML INHALATION PRN (15:19)
--- NOTE | 2020-06-17 15:50 | HP ---
HISTORY AND PHYSICAL A 69-year-old white female, history of asthma, COPD, electrolyte abnormalities, significant hypomagnesemia and hypocalcemia, atrial fibrillation on Eliquis. She came to the emergency room due to she states midsternal chest pain and swelling in her face and unable to eat or drink. She has had nausea, multiple episodes of vomiting, nonbloody vomiting over the last 2 days, unable to keep any solids or liquids down. She came to the ER for evaluation, was found to have a severely elevated white count of 53,000. Denies any urinary or vaginal symptoms. No melena or hematochezia. HOME MEDICINES: Mevacor 40 mg daily, albuterol 2 puffs q.6 hours, Antivert 12.5 q.h.s., Singular 10 mg daily, Prilosec 40 mg daily, Cozaar 100 mg daily, Qvar 80 two puffs b.i.d., Norvasc 2.5 daily. ALLERGIES: THEOPHYLLINE. REVIEW OF SYSTEMS: Fourteen-point review of systems negative except for as mentioned above. PAST MEDICAL HISTORY: Atrial fibrillation asthma, COPD, CVA, TIA, GERD, dyslipidemia, hypertension, history of prior strokes. SURGERIES: Appendectomy, , cholecystectomy, hernia repair, orthopedic surgery, colonoscopy, right knee surgery. FAMILY HISTORY: Mother is okay. Father coronary disease, asthma, CVA, TIA. PHYSICAL EXAMINATION: Temperature 98, pulse 80s to 100, respiratory 18 to 25, blood pressure is 120 to 140s over 70s to 100. Cardiovascular S1-S2. Lungs sounds scattered wheeze. Pulse is irregularly irregular rhythm, heart rate 105. Some mild swelling in her neck and facial area. She is started on broad-spectrum antibiotics for possible urinary tract infection, as she has some tenderness in the lower abdomen. CT of the chest is negative for pulmonary embolism. Possible esophageal bleed. We will get a consult with Dr. Calabrese. Remained on broad-spectrum antibiotics for severe hypokalemia, hypomagnesemia, and hypocalcemia. Electrolytes are to be replaced per protocol. [employer]inder consult. Prognosis is extremely guarded. MMODL / IJN: [id number] /
[2020-06-17] MEDS: ACETAMINOPHEN TAB 325 MG TAB PO PRN ×2 (16:06→22:04)
[2020-06-17] MEDS: SODIUM CHLORIDE 0.9% 1,000 ML IV SCH (16:09)
[2020-06-17 16:41] LABS: Ionized Calcium 3.5 mg/dL (4.5-5.3)
[2020-06-17 16:54] LABS: Calcium 6.8 mg/dL (8.4-10.2); Magnesium 1.3 mg/dL (1.6-2.3); Potassium 2.9 mmol/L (3.5-5.1)
[2020-06-17] MEDS ORDERED: SODIUM CHLORIDE 0.9% 150 ML with VASOPRESSIN 60 UNIT IV SCH ×2 (17:00)
[2020-06-17] MEDS: POTASSIUM CHLORIDE ER 20 MEQ TAB.ER PO SCH ×3 (17:33→21:02)
[2020-06-17] MEDS: atenoloL 50 MG TAB PO SCH (17:35)
[2020-06-17 17:52] LABS: Ferritin 67.8 ng/mL (10.0-291.0)
[2020-06-17] MEDS ORDERED: CALCIUM GLUCONATE 2 GM in SODIUM CHLORIDE 0.9% 100 ML IVPB ONE (19:00)
[2020-06-17] MEDS: FLUTICASONE 44 MCG INHALER INHALATION SCH (20:31)
[2020-06-17] MEDS: MECLIZINE 12.5 MG TAB PO SCH (21:02)
[2020-06-17] MEDS: APIXABAN 5 MG TAB PO SCH (21:02)
[2020-06-17] MEDS: MONTELUKAST 10 MG TAB PO SCH (21:02)
[2020-06-17] MEDS: PANTOPRAZOLE 40 MG/10 ML VIAL IVP SCH (21:03)
--- NOTE | 2020-06-17 22:25 | P.CNPUL ---
History of Present Illness Consult date: 06/17/20 Reason for consult: dyspnea, pneumonia Chief complaint: Generalized weakness with severe electrolyte imbalance History of present illness: This is a 69-year-old female presented into emergency Department with multiple nonspecific symptoms including generalized weakness vomiting nausea and numbness in the extremity especially soles along with some shortness of breath and intermittent cough, she also has problems associated with chronic atrial fibrillation has been on direct oral anticoagulant, patient has a history of significant electrolytes abnormality was admitted in the hospital 4 months ago, she felt that her tongue was enlarged, however symptoms have significantly improved since the electrolytes have been replaced, patient seen and evaluated examined in ICU Review of Systems All systems: negative Past Medical History Past Medical History: Atrial Fibrillation, Asthma, COPD, CVA/TIA, GERD/Reflux, Hyperlipidemia, Hypertension Additional Past Medical History / Comment(s): Hx stroke 1999 and January 2020; left sided weakness; inhaler and breathing treatments four times a day if needed; low magnesium; colon surgery about 8 years ago, she can't remember the name History of Any Multi-Drug Resistant Organisms: None Reported Past Surgical History: Appendectomy, Section, Cholecystectomy, Hernia Repair, Orthopedic Surgery Additional Past Surgical History / Comment(s): Colonoscopy; right knee surgery; part of surgery removed about 8 years ago Past Anesthesia/Blood Transfusion Reactions: No Reported Reaction Smoking Status: Never smoker - Past Family History Mother Family Medical History: No Reported History Additional Family Medical History / Comment(s): mother is 92 years old and still living, takes no medications. Father Family Medical History: Asthma, Coronary Artery Disease (CAD), CVA/TIA Additional Family Medical History / Comment(s): at age 65 due to asthma/breathing issues Medications and Allergies Home Medications Medication Instructions Recorded Confirmed Type Lovastatin [Mevacor] 40 mg PO DAILY 04/23/18 06/17/20 History Albuterol Inhaler [Ventolin Hfa 2 puff INHALATION RT-Q6H PRN 02/01/20 06/17/20 History Inhaler] Meclizine [Antivert] 12.5 mg PO HS 02/01/20 06/17/20 History Montelukast Sodium [Singulair] 10 mg PO HS 02/01/20 06/17/20 History Omeprazole [PriLOSEC] 40 mg PO DAILY 02/01/20 06/17/20 History Aspirin 81 mg PO DAILY chew 02/03/20 06/17/20 Rx Losartan Potassium [Cozaar] 100 mg PO DAILY 03/03/20 06/17/20 History Apixaban [Eliquis] 5 mg PO BID tab 03/06/20 06/17/20 Rx atenoloL [Tenormin] 50 mg PO BID 30 Days #60 tab 03/06/20 06/17/20 Rx Beclomethasone Dipropionate [Qvar 1 puff INHALATION RT-BID 06/17/20 06/17/20 History 40 mcg Redihaler] amLODIPine [Norvasc] 2.5 mg PO DAILY 06/17/20 06/17/20 History Allergies Allergy/AdvReac Type Severity Reaction Status Date / Time theophylline [From [facility]] AdvReac Rapid Verified 06/17/20 10:59 Heart Rate Physical Exam Vitals: Vital Signs Temp Pulse Resp BP Pulse Ox 06/17/20 19:00 89 19 93 L 06/17/20 18:00 101 H 145/116 92 L 06/17/20 17:00 103 H 22 145/116 93 L 06/17/20 16:00 92 18 133/104 93 L 06/17/20 15:00 102 H 25 H 146/91 94 L 06/17/20 14:40 98.0 F 19 146/91 92 L 06/17/20 14:00 98 F 93 19 137/96 98 06/17/20 13:00 92 24 126/72 97 06/17/20 12:52 94 18 140/64 96 06/17/20 12:08 98 F 87 18 126/72 95 06/17/20 12:00 85 25 H 140/64 94 L 06/17/20 10:13 98.3 F 104 H 18 142/103 96 Intake and Output 06/17/20 06/17/20 06/17/20 06:59 14:59 22:59 Intake Total 75 575 Output Total 100 200 Balance -25 375 Intake: IV 75 .9ns 75 Intake, IV Titration 575 Amount Magnesium Sulfate-D5w Pmx 200 1 gm In Dextrose/Water 1 100ml.bag @ 100 mls/hr IVPB Q1H [facility]OS[facility] Rx#: [id number] Sodium Chloride 0.9% 1, 375 000 ml @ 75 mls/hr IV . [id number] TOSIN Rx#:[id number] Output: Urine 100 200 Other: Weight 95.254 kg 95.254 kg - Constitutional General appearance: average body habitus, cooperative, disheveled - EENT Eyes: PERRLA ENT: normal oropharynx Ears: bilateral: normal - Neck Carotids: bilateral: upstroke normal - Respiratory Respiratory: bilateral: CTA - Cardiovascular Rhythm: regular Heart sounds: normal: S1, S2 - Gastrointestinal General gastrointestinal: normal bowel sounds, soft - Neurologic Neurologic: CNII-XII intact - Musculoskeletal Musculoskeletal: gait normal, strength equal bilaterally - Psychiatric Psychiatric: A&O x's 3, appropriate affect, intact judgment & insight Results - Laboratory Findings CBC and BMP: 06/17/20 13:31 06/17/20 15:58 PT/INR, D-dimer PT 19.0 sec (9.0-12.0) H 06/17/20 10:44 INR 2.0 (<1.2) H 06/17/20 10:44 D-Dimer 4.35 mg/L FEU (<0.60) H 06/17/20 10:44 Abnormal lab findings: Abnormal Labs 06/17/20 06/17/20 06/17/20 10:44 10:44 10:44 WBC 36.0 H RDW 15.6 H Neutrophils # 33.3 H Lymphocytes # 0.8 L Monocytes # 1.4 H Basophils # PT INR APTT D-Dimer Sodium 134 L Potassium 3.1 L Chloride 96 L BUN 20 H Glucose 158 H POC Glucose (mg/dL) Plasma Lactic Acid Wil 3.2 H* Calcium 6.7 L Ionized Calcium Elisha Magnesium <0.4 L* Total Bilirubin 2.3 H AST Lactate Dehydrogenase C-Reactive Protein Urine Appearance Ur Specific [place] Urine Protein Urine Glucose (UA) Urine Ketones Urine Blood Urine Bilirubin Ur Leukocyte Esterase Urine RBC Urine WBC Urine Bacteria Hyaline Casts Urine Mucus 06/17/20 06/17/20 06/17/20 10:44 10:44 11:06 WBC RDW Neutrophils # Lymphocytes # Monocytes # Basophils # PT 19.0 H INR 2.0 H APTT 31.7 H D-Dimer 4.35 H Sodium Potassium Chloride BUN Glucose POC Glucose (mg/dL) Plasma Lactic Acid Wil Calcium Ionized Calcium Elisha Magnesium Total Bilirubin AST Lactate Dehydrogenase C-Reactive Protein Urine Appearance Cloudy H Ur Specific [place] 1.046 H Urine Protein 2+ H Urine Glucose (UA) Trace H Urine Ketones Trace H Urine Blood Moderate H Urine Bilirubin 1+ H Ur Leukocyte Esterase Large H Urine RBC 18 H Urine WBC 26 H Urine Bacteria Rare H Hyaline Casts 11 H Urine Mucus Occasional H 06/17/20 06/17/20 06/17/20 11:56 13:31 13:31 WBC 31.6 H RDW 15.6 H Neutrophils # 29.2 H Lymphocytes # 0.4 L Monocytes # Basophils # 0.3 H PT INR APTT D-Dimer Sodium 135 L Potassium 3.0 L Chloride 97 L BUN 21 H Glucose 127 H POC Glucose (mg/dL) Plasma Lactic Acid Wil Calcium 6.6 L Ionized Calcium Elisha Magnesium 0.5 L* 1.3 L Total Bilirubin 1.6 H AST 39 H Lactate Dehydrogenase 1043 H C-Reactive Protein 354.5 H Urine Appearance Ur Specific [place] Urine Protein Urine Glucose (UA) Urine Ketones Urine Blood Urine Bilirubin Ur Leukocyte Esterase Urine RBC Urine WBC Urine Bacteria Hyaline Casts Urine Mucus 06/17/20 06/17/20 14:36 15:58 WBC RDW Neutrophils # Lymphocytes # Monocytes # Basophils # PT INR APTT D-Dimer Sodium 135 L Potassium 2.9 L Chloride BUN 20 H Glucose 104 H POC Glucose (mg/dL) 126 H Plasma Lactic Acid Wil Calcium 6.8 L Ionized Calcium Elisha 3.5 L* Magnesium 1.3 L Total Bilirubin AST Lactate Dehydrogenase C-Reactive Protein Urine Appearance Ur Specific [place] Urine Protein Urine Glucose (UA) Urine Ketones Urine Blood Urine Bilirubin Ur Leukocyte Esterase Urine RBC Urine WBC Urine Bacteria Hyaline Casts Urine Mucus - Diagnostic Findings Chest x-ray: report reviewed, image reviewed CT scan - chest: report reviewed (Right lower lobe pneumonia also right-sided hiatal hernia noted mild sore labs significant for severe leukocytosis, severe hypokalemia lactic acidosis hypomagnesemia elevated LDH and C-reactive protein, urinalysis cloudy with large leukocyte esterase trace, influenza A and B also COVID19 is negative), image reviewed Assessment and Plan Assessment: Sepsis source not clear however likely urinary tract infection and right lower lobe pneumonia patient is being started on Zithromax and Rocephin Severe degree of electrolyte imbalance related to hypomagnesemia, hypocalcemia, hypokalemia, being replaced as per protocol with 2 g of calcium gluconate IV repeat labs pending Urinary tract infection Right lower lobe pneumonia Large right-sided hiatal hernia History of stroke in 2019 and 1999, with residual left-sided weakness, Chronic hypoxia with nocturnal use of oxygen Plan: Replace potassium, calcium, magnesium Broad-spectrum antibiotics We'll start by mouth and monitor observe closely Once labs normalize patient can be moved out of the ICU Follow-up on urine culture Further recommendations pending plan of care as per clinical response of patient Time with Patient: Greater than 30
[2020-06-17 22:55] LABS: Magnesium 2.4 mg/dL (1.6-2.3); Potassium 3.1 mmol/L (3.5-5.1)
[2020-06-17] MEDS ORDERED: Potassium Replacement Protocol 1 EACH MISC MISCELLANE PRN (23:54)
[2020-06-18] MEDS: AMPICILLIN-SULBACTAM 3 GM in SODIUM CHLORIDE 0.9% 100 ML IVPB SCH ×4 (00:29→18:17)
[2020-06-18] MEDS: POTASSIUM BICARBONATE/CIT AC 20 MEQ TABLET.EFF NG-TUBE SCH ×2 (00:30→01:36)
[2020-06-18] MEDS: HYDROmorphone 0.5 MG/0.5 ML SYRINGE IVP PRN ×2 (01:34→21:29)
[2020-06-18 04:40] LABS: Basophils % (A) 0 %; Eosinophils # (A) 0.3 k/uL (0-0.7); Eosinophils % (A) 1 %; HCT 37.8 % (34.0-46.0); HGB 11.8 gm/dL (11.4-16.0); Lymphocytes # (A) 1.1 k/uL (1.0-4.8); Lymphocytes % (A) 5 %; MCHC 31.4 g/dL (31.0-37.0); MCV 89.4 fL (80.0-100.0); Mean Platelet Volume 7.8; Monocytes # (A) 0.7 k/uL (0-1.0); Monocytes % (A) 3 %; Neutrophils # (A) 22.3 k/uL (1.3-7.7); Neutrophils % (A) 91 %; Platelet Count 202 k/uL (150-450); RBC 4.23 m/uL (3.80-5.40); RDW 15.9 % (11.5-15.5); WBC 24.6 k/uL (3.8-10.6)
[2020-06-18 05:00] LABS: Albumin 3.3 g/dL (3.5-5.0); Calcium 7.1 mg/dL (8.4-10.2); Potassium 4.5 mmol/L (3.5-5.1); Total Bilirubin 1.5 mg/dL (0.2-1.3); Total Protein 6.7 g/dL (6.3-8.2)
--- NOTE | 2020-06-18 06:24 | CONS ---
CONSULTATION DATE OF SERVICE: 06/17/2020 REASON FOR CONSULTATION: Leukocytosis. HISTORY OF PRESENT ILLNESS: The patient is a 69-year-old female with a past medical history of asthma, COPD and atrial fibrillation presenting to the ER with increasing shortness of breath, nausea, vomiting, and weakness. Apparently, the patient's symptoms have been going on for the last few days and the patient did have worsening shortness of breath on minimal exertion with some substernal chest pain. The patient apparently did have a fall and was unable to get her up. EMS was called and who subsequently brought the patient to the ER. Patient's main symptom has been weakness, unable to keep anything down, some nausea and vomiting, but no diarrhea. Breathing is currently shortness of breath. The patient did have minimal cough and no sputum production and no diarrhea. The patient on presentation to hospital has been afebrile. Patient did have mild hypoxemia, currently 90% on room air. The patient noticed to have elevated white count of 36 with repeat of 31.6. BUN was slightly elevated, creatinine was normal. Also had elevated lactic acid of 3.2. Liver enzymes mildly elevated and elevated LDH and CRP. The patient did have a chest x-ray, patchy density right middle lung base, concern for developing pneumonia. The patient did have a CT angiogram of the chest, which was negative for PE. Lungs were clear. No consolidation. Large hiatal hernia with high attenuation in the dependent hernia, also small focus in the stomach. The patient was started on Rocephin and Zithromax admitted to the ICU. Infectious Disease was consulted for further management of antibiotic therapy especially with highly elevated white count. REVIEW OF SYSTEMS: Positive points have been mentioned in HPI. Rest of systems are negative. PAST MEDICAL HISTORY: Atrial fibrillation, COPD, CVA, TIA, gastroesophageal reflux disease, hyperlipidemia, hypertension. PAST SURGICAL HISTORY: Appendectomy, , cholecystectomy, colonoscopy, right knee surgery. SOCIAL HISTORY: No history of smoking, drinking or drug use. FAMILY HISTORY: Father history of asthma, coronary disease. ALLERGIES: Allergies to THEOPHYLLINE. MEDICATIONS: Medications include the patient is currently on Tylenol, Ventolin, Norvasc, Rocephin, Zithromax, Eliquis, aspirin, Tenormin, Lipitor, Flovent, Dilaudid, Cozaar, Antivert, Singulair, Narcan, Protonix, IV fluid. PHYSICAL EXAMINATION: Blood pressure 117/66, pulse of 86, temperature 99.2. She is 90% on room air. General description is an elderly female lying in bed in no distress. No tachypnea or accessory muscle of respiration use. HEENT: Examination shows no pallor or scleral icterus. Oral mucous membrane is dry. NECK: Trachea central. No thyromegaly. LUNGS: Unlabored breathing, decreased breath sounds at bases. No wheeze. HEART: S1, S2. Regular rate and rhythm. ABDOMEN: Soft, no tenderness. No guarding or rigidity. EXTREMITIES: No edema of feet. SKIN EXAMINATION: No rash or mass palpable. NEUROLOGICAL: The patient is awake, alert, oriented x3. Mood and affect normal. LABS: Hemoglobin 12.77, white count 31.6. Urine is positive. BUN of 20, creatinine 0.85. Elevated lactic acid. DIAGNOSTIC IMPRESSION: Patient admitted to the hospital with weakness after the patient did have a fall with nausea and vomiting. The patient did not have significant abdominal tenderness on clinical examination and the patient is status post cholecystectomy. The patient did have a positive UA with concern for possible urinary source. However, the patient also had evidence of hiatal hernia and question of aspiration pneumonitis, though lungs were clear of any consolidation on the CT angiogram. PLAN: 1. We will check a CT of abdomen and pelvis with oral contrast to make sure no evidence of any abdominal source. 2. Antibiotic was switched over to Unasyn 3 grams q.6 hours. 3. We will follow on clinical condition and culture to further adjust medication if needed. Thank you for this consultation. Will follow this patient along with you. MMODL / IJN: [id number] /
[2020-06-18] MEDS ORDERED: PANTOPRAZOLE 40 MG TABLET PO SCH (07:30)
[2020-06-18] MEDS: SODIUM CHLORIDE 0.9% 1,000 ML IV SCH ×2 (07:51→18:18)
[2020-06-18] MEDS: FLUTICASONE 44 MCG INHALER INHALATION SCH ×2 (08:06→19:26)
--- NOTE | 2020-06-18 08:22 | XR ---
EXAMINATION TYPE: XR chest 1V portable DATE OF EXAM: 06/18/2020 Comparison: 06/17/2020 Clinical History: 69-year-old female SOB Findings: Heart upper limits of normal in size. Focal retrocardiac opacity suggests underlying hiatal hernia. S ome mild patchy peripheral left basilar opacity, probable atelectasis. Impression: Some minimal strandy left basilar atelectasis. No acute process otherwise seen.
[2020-06-18] MEDS: PANTOPRAZOLE 40 MG/10 ML VIAL IVP SCH ×2 (08:53→21:28)
[2020-06-18] MEDS: ATORVASTATIN 10 MG TAB PO SCH (08:54)
[2020-06-18] MEDS: atenoloL 50 MG TAB PO SCH ×2 (08:54→21:28)
[2020-06-18] MEDS: ACETAMINOPHEN TAB 325 MG TAB PO PRN ×2 (08:55→18:12)
[2020-06-18] MEDS: amLODIPine 2.5 MG TAB PO SCH (08:55)
[2020-06-18] MEDS ORDERED: AZITHROMYCIN 500 MG in SODIUM CHLORIDE 0.9% 250 ML IVPB SCH (09:00)
[2020-06-18] MEDS: LOSARTAN 50 MG TAB PO SCH (09:23)
[2020-06-18] MEDS: IOPAMIDOL CONTRAST (ORAL USE) VIAL PO PRN ×2 (10:03→11:17)
--- NOTE | 2020-06-18 11:58 | P.PN ---
Subjective Progress Note Date: 06/18/20 Principal diagnosis: Sepsis source not clear however likely urinary tract infection and right lower lobe pneumonia patient is being started on Zithromax and Rocephin Severe degree of electrolyte imbalance related to hypomagnesemia, hypocalcemia, hypokalemia, being replaced as per protocol with 2 g of calcium gluconate IV repeat labs pending Urinary tract infection Right lower lobe pneumonia Large right-sided hiatal hernia History of stroke in 2019 and 1999, with residual left-sided weakness, Chronic hypoxia with nocturnal use of oxygen 06/18/2020, patient seen eval examined labs reviewed medications reviewed electrolytes continue to improve now patient's white cell count is coming down hemodynamically stable sitting upright in the bed, computed tomography scan of the abdominal and pelvis pending patient can be moved out of the ICU to stepdown unit This is a 69-year-old female presented into emergency Department with multiple nonspecific symptoms including generalized weakness vomiting nausea and numbness in the extremity especially soles along with some shortness of breath and intermittent cough, she also has problems associated with chronic atrial fibril lation has been on direct oral anticoagulant, patient has a history of significant electrolytes abnormality was admitted in the hospital 4 months ago, she felt that her tongue was enlarged, however symptoms have significantly improved since the electrolytes have been replaced, patient seen and evaluated examined in ICU Objective - Vital Signs Vital signs: Vital Signs Temp 97.9 F 06/18/20 09:00 Pulse 90 06/18/20 11:00 Resp 12 06/18/20 11:00 BP 140/79 06/18/20 10:00 Pulse Ox 94 L 06/18/20 11:00 Intake & Output 06/17/20 06/18/20 06/18/20 18:59 06:59 18:59 Intake Total 475 1325 1100 Output Total 300 350 300 Balance 175 975 800 Weight 95.254 kg 97.8 kg Intake: IV 75 1000 150 .9ns 75 900 150 Magnesium Sulfate-D5w Pmx 100 1 gm In Dextrose/Water 1 100ml.bag @ 100 mls/hr IVPB Q1H [facility]OS[facility] Rx#: [id number] Intake, IV Titration 400 175 350 Amount Ampicillin-Sulbactam 3 gm 100 In Sodium Chloride 0.9% 100 ml @ 200 mls/hr IVPB Q6HR [facility]OSIN Rx#:[id number] Azithromycin 500 mg In 250 Sodium Chloride 0.9% 250 ml @ 250 mls/hr IVPB DAILY [facility] Rx#:[id number] Magnesium Sulfate-D5w Pmx 100 100 1 gm In Dextrose/Water 1 100ml.bag @ 100 mls/hr IVPB Q1H [facility]OSIN Rx#: [id number] Sodium Chloride 0.9% 1, 300 75 000 ml @ 75 mls/hr IV . [id number] TOSIN Rx#:[id number] Oral 150 600 Output: Urine 300 350 300 - Exam - Constitutional General appearance: average body habitus, cooperative, disheveled - EENT Eyes: PERRLA ENT: normal oropharynx Ears: bilateral: normal - Neck Carotids: bilateral: upstroke normal - Respiratory Respiratory: bilateral: CTA - Cardiovascular Rhythm: regular Heart sounds: normal: S1, S2 - Gastrointestinal General gastrointestinal: normal bowel sounds, soft - Neurologic Neurologic: CNII-XII intact - Musculoskeletal Musculoskeletal: gait normal, strength equal bilaterally - Psychiatric Psychiatric: A&O x's 3, appropriate affect, intact judgment & insight - Labs CBC & Chem 7: 06/18/20 04:13 06/18/20 04:13 Labs: Abnormal Lab Results - Last 24 Hours (Table) 06/17/20 06/17/20 06/17/20 Range/Units 11:56 13:31 13:31 WBC 31.6 H (3.8-10.6) k/uL RDW 15.6 H (11.5-15.5) % Neutrophils # 29.2 H (1.3-7.7) k/uL Lymphocytes # 0.4 L (1.0-4.8) k/uL Basophils # 0.3 H (0-0.2) k/uL Sodium 135 L (137-145) mmol/L Potassium 3.0 L (3.5-5.1) mmol/L Chloride 97 L (98-107) mmol/L BUN 21 H (7-17) mg/dL Glucose 127 H (74-99) mg/dL POC Glucose (mg/dL) (75-99) mg/dL Calcium 6.6 L (8.4-10.2) mg/dL Ionized Calcium Elisha (4.5-5.3) mg/dL Magnesium 0.5 L* 1.3 L (1.6-2.3) mg/dL Total Bilirubin 1.6 H (0.2-1.3) mg/dL AST 39 H (14-36) U/L Lactate Dehydrogenase 1043 H (313-618) U/L C-Reactive Protein 354.5 H (<10.0) mg/L Albumin (3.5-5.0) g/dL 06/17/20 06/17/20 06/17/20 Range/Units 14:36 15:58 22:32 WBC (3.8-10.6) k/uL RDW (11.5-15.5) % Neutrophils # (1.3-7.7) k/uL Lymphocytes # (1.0-4.8) k/uL Basophils # (0-0.2) k/uL Sodium 135 L (137-145) mmol/L Potassium 2.9 L 3.1 L (3.5-5.1) mmol/L Chloride (98-107) mmol/L BUN 20 H (7-17) mg/dL Glucose 104 H (74-99) mg/dL POC Glucose (mg/dL) 126 H (75-99) mg/dL Calcium 6.8 L (8.4-10.2) mg/dL Ionized Calcium Elisha 3.5 L* 4.0 L (4.5-5.3) mg/dL Magnesium 1.3 L 2.4 H (1.6-2.3) mg/dL Total Bilirubin (0.2-1.3) mg/dL AST (14-36) U/L Lactate Dehydrogenase (313-618) U/L C-Reactive Protein (<10.0) mg/L Albumin (3.5-5.0) g/dL 06/18/20 06/18/20 Range/Units 04:13 04:13 WBC 24.6 H (3.8-10.6) k/uL RDW 15.9 H (11.5-15.5) % Neutrophils # 22.3 H (1.3-7.7) k/uL Lymphocytes # (1.0-4.8) k/uL Basophils # (0-0.2) k/uL Sodium 132 L (137-145) mmol/L Potassium (3.5-5.1) mmol/L Chloride (98-107) mmol/L BUN 18 H (7-17) mg/dL Glucose 113 H (74-99) mg/dL POC Glucose (mg/dL) (75-99) mg/dL Calcium 7.1 L (8.4-10.2) mg/dL Ionized Calcium Elisha (4.5-5.3) mg/dL Magnesium (1.6-2.3) mg/dL Total Bilirubin 1.5 H (0.2-1.3) mg/dL AST 42 H (14-36) U/L Lactate Dehydrogenase (313-618) U/L C-Reactive Protein (<10.0) mg/L Albumin 3.3 L (3.5-5.0) g/dL Microbiology - Last 24 Hours (Table) 06/17/20 11:06 Urine Culture - Preliminary Urine,Voided Assessment and Plan Assessment: Sepsis source not clear however likely urinary tract infection and right lower lobe pneumonia patient is being started on Zithromax and Rocephin, computed tomography scan of the abdominal and pelvis has been ordered pending currently Severe degree of electrolyte imbalance related to hypomagnesemia, hypocalcemia, hypokalemia, being replaced as per protocol with 2 g of calcium gluconate IV repeat labs pending Urinary tract infection Right lower lobe pneumonia Large right-sided hiatal hernia History of stroke in 2019 and 1999, with residual left-sided weakness, Chronic hypoxia with nocturnal use of oxygen Plan: Replace potassium, calcium, magnesium Broad-spectrum antibiotics Monitor patient closely on oral diet Pending computed tomography scan of the abdominal and pelvis Follow-up on urine culture Further recommendations pending plan of care as per clinical response of patient Time with Patient: Greater than 30
--- NOTE | 2020-06-18 12:35 | CT ---
EXAMINATION TYPE: CT abdomen pelvis wo con DATE OF EXAM: 06/18/2020 COMPARISON: None HISTORY: 69-year-old female elevated LFT and lactic acid CT DLP: 1436.2 mGycm. Automated exposure control for dose reduction was used. TECHNIQUE: Contiguous axial scanning of the abdomen and pelvis without IV contrast. Coronal and sagit biran reconstructions performed. FINDINGS: Visualized heart appears normal size. Moderate to large hiatal hernia containing stomach. Some depend ent atelectasis at the posterior left lung base. Noncontrast appearance of the liver, adrenal glands, and spleen show no gross abnormality. Mild bilateral perinephric edema probably senescent change. No hydronephrosis. Pancreas shows a surrounding hazy density in the pancreatic edema. No discrete fluid collection is id entified. Some surgical ulcer present along the anterior margin of the pancreatic head and can be cor related clinically. Partial right hemicolectomy with ileocolonic anastomosis along the upper ascending colon. Scattered p atulous small bowel loops measure up to 4.2 cm. No transition point is seen. No free fluid or free air. Mild left-sided colonic diverticulosis without pericolonic inflammatory change. Tiny fatty umbilical hernia. Some incisional scar is present along the midline anterior abdomen. Bladder under distended. Uterus anteverted. A central calcification probably represents a 1.6 cm fibr oid. Both ovaries are seen. No abnormal fluid collection in the pelvis or pelvic lymphadenopathy. Bones: Moderate degenerative change of both hips. Hypertrophic facet arthropathy mid to lower lumbar spine. Grade 1 retrolisthesis L1-L2. Patient within the lower thoracic spine. IMPRESSION: 1. Peripancreatic edema and inflammatory fat stranding suggests acute interstitial pancreatitis. No abnormal fluid collection at this time with moderate inflammation. 2. Scattered patulous/dilated small bowel loops measuring up to 4.2 cm without transition point. Fin dings suggest an ileus. 3. Moderate to large hiatal hernia. Mild left-sided colonic diverticulosis without acute diverticul itis. 4. Previous partial right hemicolectomy. Correlate as to the reason of the surgical clips located an terior to the pancreatic head.
[2020-06-18] MEDS: ALBUTEROL NEBULIZED 2.5 MG/3 ML INHALATION SCH ×2 (15:40→19:25)
--- NOTE | 2020-06-18 17:10 | CONS ---
CONSULTATION DATE OF DICTATION: 06/18/2020 REASON FOR CONSULTATION: Rule out GI bleed. HISTORY OF PRESENT ILLNESS: The patient is a 69-year-old pleasant white female with history of COPD and atrial fibrillation who was admitted to the hospital because of electrolyte abnormalities. She presented to the emergency room complaining of severe chest pain associated with some nausea and vomiting for the last 2 days' duration. She denies any associated abdominal pain. She was also having some diarrhea with bowel movements anywhere from 1 to 2 a day, loose to watery in consistency, but no blood or mucus in the stool. When she came to the emergency room, she was noted to have severe leukocytosis at 33,000, and hence she had a CT of the chest done. This revealed a large hiatal hernia with high attenuation in the dependent portion of the hiatal hernia, and possibility of acute GI bleed could not be excluded. However, the patient denies having any melena; in fact, her hemoglobin was 13 at the time of admission to the hospital. She was admitted to the intensive care unit and was started on broad-spectrum antibiotics for possible UTI. She is feeling much better today. Nausea and vomiting have resolved. She denies any abdominal pain. Because of the persistent leukocytosis she did have a CT of the abdomen and pelvis done earlier this morning that showed peripancreatic edema and inflammatory changes consistent with mild acute pancreatitis, scattered dilated small bowel loops with no evidence of bowel obstruction, moderate to large hiatal hernia and left-sided colonic diverticulosis. Also there was evidence of previous right hemicolectomy for a large right colon polyp. LABS: Labs at the time of admission to the hospital showed a hemoglobin of 12.7 and today it is 11.8 g/dL. PAST MEDICAL HISTORY: Her past medical history is significant for hypertension, hyperlipidemia, obesity, atrial fibrillation, on anticoagulation, asthma, COPD, history of CVA in the past, gastroesophageal reflux disease. PAST SURGICAL HISTORY: Right colon resection, cholecystectomy, appendectomy, , hernia repair, right knee surgery. MEDICATIONS: Medications at home include Mevacor, Ventolin, Antivert, Singulair, Prilosec, Cozaar, Qvar and Norvasc. ALLERGIES: THEOPHYLLINE. SOCIAL HISTORY: No smoking. No alcohol use. FAMILY HISTORY: Mother is 92 and still living. Father has asthma, COPD and CVA. REVIEW OF SYSTEMS: CARDIOPULMONARY: She denies any chest pain or shortness of breath. GENITOURINARY: No dysuria or hematuria. MUSCULOSKELETAL: Unremarkable. SKIN: Unremarkable. PSYCHIATRIC: Unremarkable. NEUROLOGY: Unremarkable. ENT/VISION: Unremarkable. CONSTITUTIONAL: No recent weight loss. No fever, chills, night sweats. ENDOCRINE: Unremarkable. PHYSICAL EXAMINATION: She appears comfortable. VITAL SIGNS: Stable. Blood pressure is 140/79, pulse rate 90, temperature 97.9. HEENT examination unremarkable. Conjunctivae pink. Sclerae anicteric. Oral cavity no lesions. NECK: No JVD or lymph node enlargement. CHEST: Clear to auscultation. HEART: Regular rate and rhythm. ABDOMEN: Obese. Bowel sounds are positive. No organomegaly. EXTREMITIES: No pedal edema. NEUROLOGIC: She is alert and oriented x3. No focal deficits. LABS: Labs at the time of admission to the hospital: WBC 31.6, hemoglobin 12.7, platelets 187. Today WBC is down to 24.6. Hemoglobin is 12.5. PT 19, INR 2. BUN is 20, creatinine 0.85. AST and ALT are 39 and 17, respectively. T-bilirubin 1.6. Coronavirus PCR is negative. IMPRESSION: 1. Leukocytosis, possibly related to urinary tract infection, on broad-spectrum antibiotics, and labs are improving. 2. Questionable gastrointestinal bleed. CT of the chest/CTA showed high density fluid in the stomach in the dependent portion of the large hiatal hernia suspicious for active bleeding. However, clinically patient does not have any active bleeding and her hemoglobin remains stable. She did present with some nausea and vomiting, but currently that has resolved. 3. History of atrial fibrillation, on Eliquis. 4. History of chronic obstructive pulmonary disease/asthma. RECOMMENDATIONS: 1. Continue with broad-spectrum antibiotics. 2. Monitor CBC on a daily basis. 3. Continue Protonix 40 mg twice daily. 4. No plans for any endoscopic intervention, as the patient clinically does not have any evidence of active ongoing bleeding. 5. Will follow with you closely. Thank you for this consultation. MMODL / OBIN: [id number] /
[2020-06-18] MEDS: APIXABAN 5 MG TAB PO SCH ×2 (18:12→21:28)
[2020-06-18] MEDS: ASPIRIN 81 MG PO SCH (18:12)
[2020-06-18] MEDS: NYSTATIN 100,000 UNIT/GM POWD 15 GM TOPICAL SCH ×2 (18:52→21:28)
[2020-06-18] MEDS: MECLIZINE 12.5 MG TAB PO SCH (21:28)
[2020-06-18] MEDS: MONTELUKAST 10 MG TAB PO SCH (21:28)
--- NOTE | 2020-06-18 22:35 | PN ---
PROGRESS NOTE DATE OF SERVICE: 06/18/2020 REASON FOR FOLLOWUP: Leukocytosis. INTERVAL HISTORY: The patient is currently afebrile. The patient is feeling better. She did have an episode of vomiting, some vague abdominal discomfort, and did have one loose stool. Denies having any chest pain or shortness of breath or cough. PHYSICAL EXAMINATION: Blood pressure 102/67, pulse of 88, temperature 98.3. General description is an elderly female up in the chair in no distress. RESPIRATORY SYSTEM: Unlabored breathing with decreased breath sounds at the base. No wheeze. HEART: S1, S2. Regular rate and rhythm. ABDOMEN: Soft. Mildly distended. No guarding or rigidity. EXTREMITIES: No edema of the feet. N LABS: Hemoglobin is 11.9, white count 24.6. BUN of 18, creatinine 0.81. DIAGNOSTIC IMPRESSION AND PLAN: Patient admitted to hospital with weakness and fall in this patient who did have elevated white count with concern for pancreatitis plus/minus urinary tract infection. Antibiotic will be adjusted to Zosyn while waiting for condition to stabilize and culture to finalize. Continue with supportive care. MMODL / IJN: [id number] /
--- NOTE | 2020-06-18 23:53 | PN ---
PROGRESS NOTE 69-year-old white female with pancreatitis, aspiration pneumonia, urinary tract infection, severe hypomagnesemia, hypokalemia, vague abdominal discomfort, loose stool. She is feeling better. Magnesium has been replaced. Potassium has been replaced. Remains in ICU. Blood pressure 102 over 60s. Pulse is 80s. Temp 98.3. CARDIOVASCULAR: S1, S2. LUNGS: Scattered rhonchi. HEMATOLOGY: Negative Homans. PSYCH: Fair mood and affect. LABORATORY DATA: White count 11.9, white count 24, BUN 18, creatinine 0.81. IMPRESSION: 1. Possible pancreatitis. 2. Urinary tract infection. 3. Possible aspiration pneumonia with Zosyn. 4. Continue to replace her low potassium and low magnesium levels. PROGNOSIS: Extremely guarded. MMODL / IJN: [id number] /
[2020-06-19] MEDS: PIPERACILLIN-TAZOBACTAM 3.375 GM in SODIUM CHLORIDE 0.9% 100 ML IVPB SCH ×4 (00:40→23:08)
[2020-06-19 05:41] LABS: Basophils % (A) 0 %; Eosinophils # (A) 0.3 k/uL (0-0.7); Eosinophils % (A) 2 %; HCT 35.7 % (34.0-46.0); HGB 10.9 gm/dL (11.4-16.0); Hypochromasia Slight; Lymphocytes % (A) 6 %; MCH 28.1 pg (25.0-35.0); MCHC 30.7 g/dL (31.0-37.0); MCV 91.5 fL (80.0-100.0); Mean Platelet Volume 7.7; Monocytes # (A) 0.7 k/uL (0-1.0); Monocytes % (A) 5 %; Neutrophils # (A) 13.3 k/uL (1.3-7.7); Neutrophils % (A) 86 %; Platelet Count 196 k/uL (150-450); RDW 15.6 % (11.5-15.5); WBC 15.5 k/uL (3.8-10.6)
[2020-06-19 05:44] LABS: Ionized Calcium 3.9 mg/dL (4.5-5.3)
[2020-06-19 05:55] LABS: Calcium 6.8 mg/dL (8.4-10.2); Potassium 3.6 mmol/L (3.5-5.1)
[2020-06-19] MEDS ORDERED: POTASSIUM BICARBONATE/CIT AC 20 MEQ TABLET.EFF NG-TUBE SCH (07:00)
--- NOTE | 2020-06-19 07:28 | XR ---
EXAMINATION TYPE: XR chest 1V portable DATE OF EXAM: 06/19/2020 HISTORY: Shortness of breath. COMPARISON: 06/18/2020 TECHNIQUE: Single view of the chest is submitted. FINDINGS: Demonstrated are scattered senescent parenchymal change. Patchy density right medial lung base may reflect developing infiltrate. Correlate clinically and con bundle wrapper progress studies. The heart is stable. Hilar and mediastinal structures are within normal limits. Degenerative changes are seen of the dorsal spine. IMPRESSION: 1. Patchy density right medial lung base may reflect developing infiltrate. Correlate clinically and consider progress studies.
[2020-06-19] MEDS ORDERED: CALCIUM GLUCONATE 2 GM in SODIUM CHLORIDE 0.9% 100 ML IVPB ONE (07:30)
[2020-06-19] MEDS: SODIUM CHLORIDE 0.9% 1,000 ML IV SCH (09:34)
[2020-06-19] MEDS: LOSARTAN 50 MG TAB PO SCH (09:35)
[2020-06-19] MEDS: APIXABAN 5 MG TAB PO SCH ×2 (09:35→20:27)
[2020-06-19] MEDS: ASPIRIN 81 MG PO SCH (09:35)
[2020-06-19] MEDS: amLODIPine 2.5 MG TAB PO SCH (09:35)
[2020-06-19] MEDS: NYSTATIN 100,000 UNIT/GM POWD 15 GM TOPICAL SCH ×3 (09:36→20:28)
[2020-06-19] MEDS: ATORVASTATIN 10 MG TAB PO SCH (09:36)
[2020-06-19] MEDS: PANTOPRAZOLE 40 MG/10 ML VIAL IVP SCH ×2 (09:36→20:26)
[2020-06-19] MEDS: atenoloL 50 MG TAB PO SCH ×2 (09:37→20:27)
[2020-06-19] MEDS: ALBUTEROL NEBULIZED 2.5 MG/3 ML INHALATION SCH ×4 (10:18→19:32)
[2020-06-19] MEDS: FLUTICASONE 44 MCG INHALER INHALATION SCH ×2 (10:18→19:30)
[2020-06-19 11:38] LABS: Glucose,Whole Blood 152 mg/dL (75-99)
--- NOTE | 2020-06-19 12:01 | P.PN ---
Subjective Progress Note Date: 06/19/20 Principal diagnosis: Sepsis source not clear however likely urinary tract infection and right lower lobe pneumonia patient is being started on Zithromax and Rocephin Severe degree of electrolyte imbalance related to hypomagnesemia, hypocalcemia, hypokalemia, being replaced as per protocol with 2 g of calcium gluconate IV repeat labs pending Urinary tract infection Right lower lobe pneumonia Large right-sided hiatal hernia History of stroke in 2019 and 1999, with residual left-sided weakness, Chronic hypoxia with nocturnal use of oxygen 06/19/2020, patient seen eval examined during the rounds labs reviewed medications reviewed care plan discussed, denies any chest pain, respiratory status stable, electrolytes are being replaced, patient will be transferred to [facility] unit once room is available, to be seen improved to 15,000, initiate him is to 06/18/2020, patient seen eval examined labs reviewed medications reviewed electrolytes continue to improve now patient's white cell count is coming down hemodynamically stable sitting upright in the bed, computed tomography scan of the abdominal and pelvis pending patient can be moved out of the ICU to stepdown unit This is a 69-year-old female presented into emergency Department with multiple nonspecific symptoms including generalized weakness vomiting nausea and numbness in the extremity especially soles along with some shortness of breath and intermittent cough, she also has problems associated with chronic atrial fibrillation has been on direct oral anticoagulant, patient has a history of significant electrolytes abnormality was admitted in the hospital 4 months ago, she felt that her tongue was enlarged, however symptoms have significantly improved since the electrolytes have been replaced, patient seen and evaluated examined in ICU Objective - Vital Signs Vital signs: Vital Signs Temp 98.2 F 06/19/20 08:00 Pulse 91 06/19/20 10:37 Resp 18 06/19/20 08:00 BP 122/88 06/19/20 08:00 Pulse Ox 98 06/19/20 08:00 Intake & Output 06/18/20 06/19/20 06/19/20 18:59 06:59 18:59 Intake Total 1895 600 400 Output Total 500 Balance 1395 600 400 Intake: IV 270 100 100 .9ns 170 Ampicillin-Sulbactam 3 gm 100 In Sodium Chloride 0.9% 100 ml @ 200 mls/hr IVPB Q6HR [facility] Rx#:[id number] Piperacillin-Tazobactam 3 100 100 .375 gm In Sodium Chloride 0.9% 100 ml @ 25 mls/hr IVPB Q8HR [facility] Rx# :[id number] Intake, IV Titration 425 100 Amount Ampicillin-Sulbactam 3 gm 100 In Sodium Chloride 0.9% 100 ml @ 200 mls/hr IVPB Q6HR [facility] Rx#:[id number] Azithromycin 500 mg In 250 Sodium Chloride 0.9% 250 ml @ 250 mls/hr IVPB DAILY [facility] Rx#:[id number] Calcium Gluconate 2 gm In 100 Sodium Chloride 0.9% 100 ml @ 100 mls/hr IVPB ONCE ONE Rx#:[id number] Sodium Chloride 0.9% 1, 75 000 ml @ 75 mls/hr IV . [id number] [facility] Rx#:[id number] Oral 1200 500 200 Output: Urine 500 Other: # Voids 2 4 1 - Exam - Constitutional General appearance: average body habitus, cooperative, disheveled - EENT Eyes: PERRLA ENT: normal oropharynx Ears: bilateral: normal - Neck Carotids: bilateral: upstroke normal - Respiratory Respiratory: bilateral: CTA - Cardiovascular Rhythm: regular Heart sounds: normal: S1, S2 - Gastrointestinal General gastrointestinal: normal bowel sounds, soft - Neurologic Neurologic: CNII-XII intact - Musculoskeletal Musculoskeletal: gait normal, strength equal bilaterally - Psychiatric Psychiatric: A&O x's 3, appropriate affect, intact judgment & insight - Labs CBC & Chem 7: 06/19/20 04:56 06/19/20 04:56 Labs: Abnormal Lab Results - Last 24 Hours (Table) 06/19/20 06/19/20 06/19/20 Range/Units 04:56 04:56 11:36 WBC 15.5 H (3.8-10.6) k/uL Hgb 10.9 L (11.4-16.0) gm/dL MCHC 30.7 L (31.0-37.0) g/dL RDW 15.6 H (11.5-15.5) % Neutrophils # 13.3 H (1.3-7.7) k/uL Sodium 136 L (137-145) mmol/L BUN 21 H (7-17) mg/dL Glucose 114 H (74-99) mg/dL POC Glucose (mg/dL) 152 H (75-99) mg/dL Calcium 6.8 L (8.4-10.2) mg/dL Ionized Calcium Elisha 3.9 L (4.5-5.3) mg/dL Microbiology - Last 24 Hours (Table) 06/17/20 11:06 Urine Culture - Final Urine,Voided 06/17/20 11:56 Blood Culture - Preliminary Blood No Growth after 24 hours Assessment and Plan Assessment: Ileus likely related to electrolyte disturbance including hypomagnesemia and hypo-kalemia and hypocalcemia Sepsis source not clear however likely urinary tract infection and right lower lobe pneumonia patient is being started on Zithromax and Rocephin, computed tomography scan of the abdominal and pelvis has been helped been suggestive of ileus-like Petrin Severe degree of electrolyte imbalance related to hypomagnesemia, hypocalcemia, hypokalemia, being replaced as per protocol with 2 g of calcium gluconate IV repeat labs pending Urinary tract infection Right lower lobe pneumonia Large right-sided hiatal hernia History of stroke in 2019 and 1999, with residual left-sided weakness, Chronic hypoxia with nocturnal use of oxygen Plan: Replace potassium, calcium, magnesium Broad-spectrum antibiotics Monitor patient closely on oral diet Reviewed computed tomography scan of the abdominal and pelvis Patient can be moved out of the ICU to [facility] with remote telemetry Further recommendations pending plan of care as per clinical response of patient Time with Patient: Greater than 30
--- NOTE | 2020-06-19 12:15 | P.PN ---
Subjective Progress Note Date: 06/19/20 Principal diagnosis: Rule out GI bleed This patient is a pleasant 69-year-old white female with a history of COPD and atrial fibrillation who was admitted to the hospital because of electrolyte abnormalities. She came to the emergency department with complaints of severe chest pain associated with nausea and vomiting for the last 2 days duration. She also states she has 1-2 loose stools daily. She denies any blood or if he is in the stool. States she is feeling much better today. She had a large brown all movement, the nurse reported it was soft but loose. Denies there was any blood. The patient is denying any nausea or vomiting today. She is tolerating her diet. Objective - Vital Signs Vital signs: Vital Signs Temp 98.2 F 06/19/20 08:00 Pulse 91 06/19/20 10:37 Resp 18 06/19/20 08:00 BP 122/88 06/19/20 08:00 Pulse Ox 98 06/19/20 08:00 Intake & Output 06/18/20 06/19/20 06/19/20 18:59 06:59 18:59 Intake Total 1895 600 400 Output Total 500 Balance 1395 600 400 Intake: IV 270 100 100 .9ns 170 Ampicillin-Sulbactam 3 gm 100 In Sodium Chloride 0.9% 100 ml @ 200 mls/hr IVPB Q6HR [facility] Rx#:[id number] Piperacillin-Tazobactam 3 100 100 .375 gm In Sodium Chloride 0.9% 100 ml @ 25 mls/hr IVPB Q8HR [facility] Rx# :[id number] Intake, IV Titration 425 100 Amount Ampicillin-Sulbactam 3 gm 100 In Sodium Chloride 0.9% 100 ml @ 200 mls/hr IVPB Q6HR [facility] Rx#:[id number] Azithromycin 500 mg In 250 Sodium Chloride 0.9% 250 ml @ 250 mls/hr IVPB DAILY [facility] Rx#:[id number] Calcium Gluconate 2 gm In 100 Sodium Chloride 0.9% 100 ml @ 100 mls/hr IVPB ONCE ONE Rx#:[id number] Sodium Chloride 0.9% 1, 75 000 ml @ 75 mls/hr IV . [id number] [facility] Rx#:[id number] Oral 1200 500 200 Output: Urine 500 Other: # Voids 2 4 1 - Exam General appearance: The patient is alert, oriented, in no acute distress. Obese. HET: Head is normocephalic and atraumatic. Conjunctiva pink. Sclera anicteric. Neck: Supple without lymphadenopathy. Abdomen: Soft, nontender, nondistended with bowel sounds. No guarding or rigidity. Extremities: Normal skin color and turgor. No pedal edema Neurological: No focal deficits. Alert and oriented 3. - Labs CBC & Chem 7: 06/19/20 04:56 06/19/20 04:56 Labs: Abnormal Lab Results - Last 24 Hours (Table) 06/19/20 06/19/20 06/19/20 Range/Units 04:56 04:56 11:36 WBC 15.5 H (3.8-10.6) k/uL Hgb 10.9 L (11.4-16.0) gm/dL MCHC 30.7 L (31.0-37.0) g/dL RDW 15.6 H (11.5-15.5) % Neutrophils # 13.3 H (1.3-7.7) k/uL Sodium 136 L (137-145) mmol/L BUN 21 H (7-17) mg/dL Glucose 114 H (74-99) mg/dL POC Glucose (mg/dL) 152 H (75-99) mg/dL Calcium 6.8 L (8.4-10.2) mg/dL Ionized Calcium Elisha 3.9 L (4.5-5.3) mg/dL Microbiology - Last 24 Hours (Table) 06/17/20 11:06 Urine Culture - Final Urine,Voided 06/17/20 11:56 Blood Culture - Preliminary Blood No Growth after 24 hours Assessment and Plan Assessment: 1. Leukocytosis, possibly related to urinary tract infection on broad-spectrum antibiotics, labs are improving 2. Questionable gastrointestinal bleed. CT of the chest showed high density fluid in the stomach in the dependent portion of the large hiatal hernia suspicious for active bleed, however clinically patient does not have any active bleeding and her hemoglobin remained stable. She did present with some nausea and vomiting but currently has resolved. 3. Streaky of atrial fibrillation on Eliquis 4. History of chronic obstructive pulmonary disease/asthma Plan: 1. Continue with broad-spectrum antibiotics 2. Monitor CBC daily 3. Continue Protonix 40 mg twice daily 4. No plans for any endoscopic intervention, as patient clinically does not have any evidence of active GI bleed 5. CT of abdomen ordered and reviewed 6. We will sign off at this time Dr. Anabell Barnhart I agree with the dictator's note, documented as a scribe by Tara Hodges.
[2020-06-19] MEDS: MECLIZINE 12.5 MG TAB PO SCH (20:26)
[2020-06-19] MEDS: MONTELUKAST 10 MG TAB PO SCH (20:26)
[2020-06-19] MEDS: ACETAMINOPHEN TAB 325 MG TAB PO PRN (20:28)
[2020-06-20] MEDS: ACETAMINOPHEN TAB 325 MG TAB PO PRN ×2 (01:59→20:53)
[2020-06-20 06:37] LABS: Basophils % (A) 0 %; Eosinophils # (A) 0.3 k/uL (0-0.7); Eosinophils % (A) 3 %; HCT 32.4 % (34.0-46.0); HGB 10.4 gm/dL (11.4-16.0); Hypochromasia Slight; Lymphocytes % (A) 11 %; MCH 29.5 pg (25.0-35.0); MCHC 32.1 g/dL (31.0-37.0); MCV 91.9 fL (80.0-100.0); Mean Platelet Volume 7.3; Monocytes # (A) 0.6 k/uL (0-1.0); Monocytes % (A) 6 %; Neutrophils # (A) 7.2 k/uL (1.3-7.7); Neutrophils % (A) 77 %; Platelet Count 182 k/uL (150-450); RBC 3.53 m/uL (3.80-5.40); RDW 15.3 % (11.5-15.5); WBC 9.3 k/uL (3.8-10.6)
[2020-06-20 06:48] LABS: Ionized Calcium 4.5 mg/dL (4.5-5.3)
[2020-06-20] MEDS: amLODIPine 2.5 MG TAB PO SCH (07:32)
[2020-06-20] MEDS: LOSARTAN 50 MG TAB PO SCH (07:32)
[2020-06-20] MEDS: APIXABAN 5 MG TAB PO SCH ×2 (07:32→20:54)
[2020-06-20] MEDS: ASPIRIN 81 MG PO SCH (07:32)
[2020-06-20] MEDS: PIPERACILLIN-TAZOBACTAM 3.375 GM in SODIUM CHLORIDE 0.9% 100 ML IVPB SCH ×2 (07:33→15:35)
[2020-06-20] MEDS: atenoloL 50 MG TAB PO SCH ×2 (07:33→20:54)
[2020-06-20] MEDS: ATORVASTATIN 10 MG TAB PO SCH (07:33)
[2020-06-20] MEDS: NYSTATIN 100,000 UNIT/GM POWD 15 GM TOPICAL SCH ×2 (07:34→15:35)
[2020-06-20] MEDS: PANTOPRAZOLE 40 MG/10 ML VIAL IVP SCH ×2 (07:34→20:53)
[2020-06-20 07:50] VITALS: RESP 16
[2020-06-20] MEDS: ALBUTEROL NEBULIZED 2.5 MG/3 ML INHALATION SCH ×3 (09:03→21:21)
[2020-06-20] MEDS: FLUTICASONE 44 MCG INHALER INHALATION SCH ×2 (09:03→21:21)
[2020-06-20 10:29] LABS: African American GFR (CKD) 86.6 (60.0-200.0); Anion Gap 8.4 mmol/L (4.00-12.00); BUN/Creat Ratio 18.75 Ratio (12.00-20.00); Calcium 7.9 mg/dL (8.7-10.3); Carbon Dioxide 25.6 mmol/L (21.6-31.8); Magnesium 1.6 mg/dL (1.5-2.4); Non-African American GFR(CKD) 74.7 (60.0-200.0); Potassium 3.8 mmol/L (3.5-5.5)
--- NOTE | 2020-06-20 13:16 | P.PN ---
Subjective Progress Note Date: 06/20/20 Principal diagnosis: Sepsis source not clear however likely urinary tract infection and right lower lobe pneumonia patient is being started on Zithromax and Rocephin Severe degree of electrolyte imbalance related to hypomagnesemia, hypocalcemia, hypokalemia, being replaced as per protocol with 2 g of calcium gluconate IV repeat labs pending Urinary tract infection Right lower lobe pneumonia Large right-sided hiatal hernia History of stroke in 2019 and 1999, with residual left-sided weakness, Chronic hypoxia with nocturnal use of oxygen 06/20/2020, patient seen eval examined during the rounds labs reviewed medications reviewed care plan discussed, respiratory status is stable sitting upright on the chair, denies any chest pain cough or sputum production have been stable, electrolytes improved significantly activity C planning 06/19/2020, patient seen eval examined during the rounds labs reviewed medications reviewed care plan discussed, denies any chest pain, respiratory status stable, electrolytes are being replaced, patient will be transferred to [facility] unit once room is available, to be seen improved to 15,000, initiate him is to 06/18/2020, patient seen eval examined labs reviewed medications reviewed electrolytes continue to improve now patient's white cell count is coming down hemodynamically stable sitting upright in the bed, computed tomography scan of the abdominal and pelvis pending patient can be moved out of the ICU to stepdown unit This is a 69-year-old female presented into emergency Department with multiple nonspecific symptoms including generalized weakness vomiting nausea and numbness in the extremity especially soles along with some shortness of breath and intermittent cough, she also has problems associated with chronic atrial fibrillation has been on direct oral anticoagulant, patient has a history of significant electrolytes abnormality was admitted in the hospital 4 months ago, she felt that her tongue was enlarged, however symptoms have significantly improved since the electrolytes have been replaced, patient seen and evaluated examined in ICU Objective - Vital Signs Vital signs: Vital Signs Temp 97.8 F 06/20/20 07:49 Pulse 92 06/20/20 09:15 Resp 16 06/20/20 07:49 BP 115/69 06/20/20 07:49 Pulse Ox 95 06/20/20 07:49 Intake & Output 06/19/20 06/20/20 06/20/20 18:59 06:59 18:59 Intake Total 400 100 Balance 400 100 Intake: IV 100 Piperacillin-Tazobactam 3 100 .375 gm In Sodium Chloride 0.9% 100 ml @ 25 mls/hr IVPB Q8HR [facility] Rx# :[id number] Intake, IV Titration 100 Amount Calcium Gluconate 2 gm In 100 Sodium Chloride 0.9% 100 ml @ 100 mls/hr IVPB ONCE ONE Rx#:[id number] Oral 200 100 Other: Voiding Method Toilet Toilet # Voids 1 1 - Exam - Constitutional General appearance: average body habitus, cooperative, disheveled - EENT Eyes: PERRLA ENT: normal oropharynx Ears: bilateral: normal - Neck Carotids: bilateral: upstroke normal - Respiratory Respiratory: bilateral: CTA - Cardiovascular Rhythm: regular Heart sounds: normal: S1, S2 - Gastrointestinal General gastrointestinal: normal bowel sounds, soft - Neurologic Neurologic: CNII-XII intact - Musculoskeletal Musculoskeletal: gait normal, strength equal bilaterally - Psychiatric Psychiatric: A&O x's 3, appropriate affect, intact judgment & insight - Labs CBC & Chem 7: 06/20/20 05:56 06/20/20 05:56 Labs: Abnormal Lab Results - Last 24 Hours (Table) 06/20/20 06/20/20 Range/Units 05:56 05:56 RBC 3.53 L (3.80-5.40) m/uL Hgb 10.4 L (11.4-16.0) gm/dL Hct 32.4 L (34.0-46.0) % Glucose 115 H (70-110) mg/dL Calcium 7.9 L (8.7-10.3) mg/dL Microbiology - Last 24 Hours (Table) 06/17/20 11:56 Blood Culture - Preliminary Blood No Growth after 48 hours Assessment and Plan Assessment: Ileus likely related to electrolyte disturbance including hypomagnesemia and hypo-kalemia and hypocalcemia Sepsis source not clear however likely urinary tract infection and right lower lobe pneumonia patient is being started on Zithromax and Rocephin, computed tomography scan of the abdominal and pelvis has been helped been suggestive of ileus-like Petrin Severe degree of electrolyte imbalance related to hypomagnesemia, hypocalcemia, hypokalemia, being replaced as per protocol with 2 g of calcium gluconate IV repeat labs pending Urinary tract infection Right lower lobe pneumonia Large right-sided hiatal hernia History of stroke in 2019 and 1999, with residual left-sided weakness, Chronic hypoxia with nocturnal use of oxygen Plan: Replace potassium, calcium, magnesium is needed Broad-spectrum antibiotics can be switched to oral or 5-7 days Monitor patient closely on oral diet Reviewed computed tomography scan of the abdominal and pelvis Further recommendations pending plan of care as per clinical response of patient Agree with discharge planning Time with Patient: Greater than 30
--- NOTE | 2020-06-20 18:17 | PN ---
PROGRESS NOTE DATE OF SERVICE: 06/19/2020 This patient is a white female who has made it out of the ICU. She is feeling better, less dizzy. White count has improved. She has a large right-sided hiatal hernia, prior strokes, chronic hypoxemia. Nocturnal oxygen is being used. Right lower lobe pneumonia. Urinary tract infection. Electrolyte imbalance with severe magnesium and calcium lowering much improved. Calcium gluconate was given again last night. She appears to be sitting up in a chair, feeling better. Lungs are clear. Cardiovascular: S1, S2. HEMATOLOGY: Negative Homans. Temperature 98.2, pulse 91, respiration rate , blood pressure 132/82. Replace potassium, calcium, magnesium. Broad-spectrum antibiotics. CT scan was reviewed of the abdomen and pelvis. She is up to a regular monitored bed. Continue antibiotics. Unclear if her sepsis was due to pneumonia; possibly aspiration or UTI. Severe electrolyte imbalance, possibly due to pancreatitis. Unclear at this point. Ileus secondary to electrolyte abnormality. Please see further orders. Prognosis extremely guarded. MMODL / IJN: [id number] /
--- NOTE | 2020-06-20 18:33 | PN ---
PROGRESS NOTE DATE OF SERVICE: 06/20/2020 This is a 69-year-old white female who was admitted with a UTI, aspiration pneumonia, severe hypomagnesemia and hypokalemia. She is feeling much better, sitting up in a chair. White count is down from 24 to 15 to 9.3, hemoglobin is 10.4, sodium 140, potassium 3.8, BUN 15, creatinine 0.8, calcium 7.9, lipase 142. She is greatly improved. She wants to go home. Wait for cultures to come back and possibly discharge home tomorrow. CARDIOVASCULAR: S1, S2. LUNGS: Transmitted upper airway sounds. GI: Soft. Non-tender. HEMATOLOGY: Negative Homans. ASSESSMENT: 1. Ileus. 2. Sepsis. 3. Electrolyte imbalance. 4. Urinary tract infection. 5. Right lower lobe pneumonia. 6. Right-sided pneumonia. 7. Chronic hypoxemia. 8. History of cerebrovascular accident. Replace potassium, calcium, magnesium. Broad-spectrum antibiotics. Please see further orders. MMODL / IJN: [id number] /
[2020-06-20] MEDS: MONTELUKAST 10 MG TAB PO SCH (20:54)
[2020-06-20] MEDS: MECLIZINE 12.5 MG TAB PO SCH (20:57)
--- NOTE | 2020-06-20 22:52 | PN ---
PROGRESS NOTE DATE OF SERVICE: 06/20/2020 REASON FOR FOLLOWUP: Acute pancreatitis and leukocytosis. INTERVAL HISTORY: Patient is currently afebrile. The patient is feeling better. Breathing comfortably. The patient's nausea and vomiting has resolved. Denies any chest pain or shortness of breath or cough. PHYSICAL EXAMINATION: Her blood pressure is 147/90 with a pulse of 94, temperature 99, she is 96% on room air. General description: The patient is an elderly female up in the bed in no distress. Respiratory system: Unlabored breathing with decreased intensity of the breath sounds in the base, with no wheeze. Heart S1, S2. Regular rate and rhythm. ABDOMEN: Soft, nontender. No guarding. No rigidity. LABS: Hemoglobin is 10.4, white count 9.6, BUN of 16, creatinine 0.8. DIAGNOSTIC IMPRESSION AND PLAN: Patient with elevated white count likely secondary to acute pancreatitis plus/minus urinary tract infection in this patient with overall clinical improvement. She is currently covered with Zosyn, transition to oral antibiotic on discharge. Continue supportive care. MMODL / IJN: [id number] /
[2020-06-21] MEDS: PIPERACILLIN-TAZOBACTAM 3.375 GM in SODIUM CHLORIDE 0.9% 100 ML IVPB SCH ×2 (00:55→07:16)
[2020-06-21] MEDS: ACETAMINOPHEN TAB 325 MG TAB PO PRN (01:03)
[2020-06-21] MEDS: NYSTATIN 100,000 UNIT/GM POWD 15 GM TOPICAL SCH ×2 (04:25→07:17)
[2020-06-21] MEDS: ASPIRIN 81 MG PO SCH (07:15)
[2020-06-21] MEDS: atenoloL 50 MG TAB PO SCH (07:15)
[2020-06-21] MEDS: APIXABAN 5 MG TAB PO SCH (07:16)
[2020-06-21] MEDS: amLODIPine 2.5 MG TAB PO SCH (07:16)
[2020-06-21] MEDS: LOSARTAN 50 MG TAB PO SCH (07:16)
[2020-06-21] MEDS: ATORVASTATIN 10 MG TAB PO SCH (07:16)
[2020-06-21] MEDS: PANTOPRAZOLE 40 MG/10 ML VIAL IVP SCH (07:17)
[2020-06-21 08:13] VITALS: PULSE 81; TEMP 97.8
[2020-06-21] MEDS ORDERED: LEVOFLOXACIN 500 MG TAB PO STA (08:50)
[2020-06-21] MEDS ORDERED: POTASSIUM CHLORIDE ER 20 MEQ TAB.ER PO SCH (09:00)
[2020-06-21] MEDS ORDERED: MAGNESIUM OXIDE 400 MG TAB PO SCH (09:00)
[2020-06-21 09:15] LABS: HCT 34.1 % (34.0-46.0); HGB 10.4 gm/dL (11.4-16.0); Hypochromasia Marked; MCH 28.6 pg (25.0-35.0); MCHC 30.5 g/dL (31.0-37.0); MCV 93.7 fL (80.0-100.0); Mean Platelet Volume 7.6; Platelet Count 219 k/uL (150-450); RBC 3.64 m/uL (3.80-5.40); RDW 15.3 % (11.5-15.5)
[2020-06-21 09:29] VITALS: BP 136/83
[2020-06-21] MEDS: ALBUTEROL NEBULIZED 2.5 MG/3 ML INHALATION SCH ×2 (12:44→12:57)
[2020-06-21] MEDS: FLUTICASONE 44 MCG INHALER INHALATION SCH (12:45)
--- NOTE | 2020-06-21 13:55 | P.PN ---
Subjective Progress Note Date: 06/21/20 Principal diagnosis: Sepsis source not clear however likely urinary tract infection and right lower lobe pneumonia patient is being started on Zithromax and Rocephin Severe degree of electrolyte imbalance related to hypomagnesemia, hypocalcemia, hypokalemia, being replaced as per protocol with 2 g of calcium gluconate IV repeat labs pending Urinary tract infection Right lower lobe pneumonia Large right-sided hiatal hernia History of stroke in 2019 and 1999, with residual left-sided weakness, Chronic hypoxia with nocturnal use of oxygen Symbicort 2019, patient seen eval examined during the rounds labs reviewed medications reviewed care plan discussed, overall patient continued do well denies any chest pain, 06/20/2020, patient seen eval examined during the rounds labs reviewed medications reviewed care plan discussed, respiratory status is stable sitting upright on the chair, denies any chest pain cough or sputum production have been stable, electrolytes improved significantly activity C planning 06/19/2020, patient seen eval examined during the rounds labs reviewed medications reviewed care plan discussed, denies any chest pain, respiratory status stable, electrolytes are being replaced, patient will be [facility] once room is available, to be seen improved to 15,000, initiate him is to 06/18/2020, patient seen eval examined labs reviewed medications reviewed electrolytes continue to improve now patient's white cell count is coming down hemodynamically stable sitting upright in the bed, computed tomography scan of the abdominal and pelvis pending patient can be moved out of the ICU to stepdown unit This is a 69-year-old female presented into emergency Department with multiple nonspecific symptoms including generalized weakness vomiting nausea and numbness in the extremity especially soles along with some shortness of breath and intermittent cough, she also has problems associated with chronic atrial fibrillation has been on direct oral anticoagulant, patient has a history of significant electrolytes abnormality was admitted in the hospital 4 months ago, she felt that her tongue was enlarged, however symptoms have significantly improved since the electrolytes have been replaced, patient seen and evaluated examined in ICU Objective - Vital Signs Vital signs: Vital Signs Temp 97.8 F 06/21/20 08:00 Pulse 81 06/21/20 08:00 Resp 16 06/21/20 08:00 BP 136/83 06/21/20 09:27 Pulse Ox 97 06/21/20 08:00 Intake & Output 06/20/20 06/21/20 06/21/20 18:59 06:59 18:59 Other: Voiding Method Toilet Toilet # Voids 1 2 - Exam - Constitutional General appearance: average body habitus, cooperative, disheveled - EENT Eyes: PERRLA ENT: normal oropharynx Ears: bilateral: normal - Neck Carotids: bilateral: upstroke normal - Respiratory Respiratory: bilateral: CTA - Cardiovascular Rhythm: regular Heart sounds: normal: S1, S2 - Gastrointestinal General gastrointestinal: normal bowel sounds, soft - Neurologic Neurologic: CNII-XII intact - Musculoskeletal Musculoskeletal: gait normal, strength equal bilaterally - Psychiatric Psychiatric: A&O x's 3, appropriate affect, intact judgment & insight - Labs CBC & Chem 7: 06/21/20 08:19 06/20/20 05:56 Labs: Abnormal Lab Results - Last 24 Hours (Table) 06/21/20 Range/Units 08:19 RBC 3.64 L (3.80-5.40) m/uL Hgb 10.4 L (11.4-16.0) gm/dL MCHC 30.5 L (31.0-37.0) g/dL Microbiology - Last 24 Hours (Table) 06/17/20 11:56 Blood Culture - Preliminary Blood No Growth after 72 hours Assessment and Plan Assessment: Ileus likely related to electrolyte disturbance including hypomagnesemia and hypo-kalemia and hypocalcemia Sepsis source not clear however likely urinary tract infection and right lower lobe pneumonia patient is being started on Zithromax and Rocephin, computed tomography scan of the abdominal and pelvis has been helped been suggestive of ileus-like Petrin Severe degree of electrolyte imbalance related to hypomagnesemia, hypocalcemia, hypokalemia, being replaced as per protocol with 2 g of calcium gluconate IV repeat labs pending Urinary tract infection Right lower lobe pneumonia Large right-sided hiatal hernia History of stroke in 2019 and 1999, with residual left-sided weakness, Chronic hypoxia with nocturnal use of oxygen Plan: Continue to Replace potassium, calcium, magnesium is needed Broad-spectrum antibiotics can be switched to oral or 5-7 days Monitor patient closely on oral diet Reviewed computed tomography scan of the abdominal and pelvis Further recommendations pending plan of care as per clinical response of patient Agree with discharge planning Time with Patient: Greater than 30
[2020-06-21 14:44] LABS: African American GFR (CKD) 86.6 (60.0-200.0); Albumin 3.8 g/dL (3.80-4.90); Albumin/Globulin Ratio 1.65 (1.60-3.17); Calcium 8.3 mg/dL (8.7-10.3); Globulin 2.3 g/dL (1.6-3.3); Non-African American GFR(CKD) 74.7 (60.0-200.0); Potassium 4.1 mmol/L (3.5-5.5); Total Bilirubin 0.6 mg/dL (0.2-1.2); Total Protein 6.1 g/dL (6.2-8.2)
== END 2020-06-21 13:48 | disposition home health service (06) | DRG 871 ==
LOC: EC 10:10 → 2SICU 12:30 → 4SSUR 06-19 14:28
PROVIDERS: ADMIT Family Medicine; ATTEND Family Medicine
DX: A41.9 Sepsis, unspecified organism (principal); J18.9 Pneumonia, unspecified organism; K85.90 Acute pancreatitis without necrosis or infection, unspecified; I48.20 Chronic atrial fibrillation, unspecified; Z68.41 Body mass index [BMI] 40.0-44.9, adult; N39.0 Urinary tract infection, site not specified; I69.354 Hemiplegia and hemiparesis following cerebral infarction affecting left non-dominant side; K56.7 Ileus, unspecified; J44.9 Chronic obstructive pulmonary disease, unspecified; K44.9 Diaphragmatic hernia without obstruction or gangrene; I10 Essential (primary) hypertension; Z20.828 Contact with and (suspected) exposure to other viral communicable diseases; E87.6 Hypokalemia; E83.51 Hypocalcemia; E78.5 Hyperlipidemia, unspecified; E83.42 Hypomagnesemia; K21.9 Gastro-esophageal reflux disease without esophagitis; E66.9 Obesity, unspecified; Z79.82 Long term (current) use of aspirin; Z82.3 Family history of stroke; Z82.49 Family history of ischemic heart disease and other diseases of the circulatory system; Z79.899 Other long term (current) drug therapy; Z79.01 Long term (current) use of anticoagulants; Z82.5 Family history of asthma and other chronic lower respiratory diseases; Z87.19 Personal history of other diseases of the digestive system; Z90.49 Acquired absence of other specified parts of digestive tract; Z88.8 Allergy status to other drugs, medicaments and biological substances; Z98.891 History of uterine scar from previous surgery; Z98.890 Other specified postprocedural states
CPT/HCPCS: 36415; 70360; 71045; 71046; 71275; 74176; 80048; 80053; 81001; 82330; 82728; 83605; 83615; 83690; 83735; 84100; 84132; 84484; 85025; 85027; 85379; 85610; 85730; 86140; 86850; 86900; 86901; 87040; 87086; 87636; 93005; 94640; 96361; 96365; 96366; 96375; 99285

== ENCOUNTER → 2021-01-24 | Outpatient (CLI) | payer MEDICARE, OTHER ==
[~2021-01-24] MED LIST changes: -HYDROmorphone 1 MG/ML 1 ML SYRINGE IVP PRN; -LACTATED RINGERS 1,000 ML IV SCH; -LIDOCAINE 1% 20 ML VIAL (10MG/ML) FOR IV START INTRADERMA ONE; -METOPROLOL TARTRATE 5 MG/5 ML VIAL IVP ONE; -PROPOFOL 10 MG/ML 20 ML VIAL IV ONE; +REGADENOSON 0.4 MG/5 ML SYRINGE IV PRN
--- NOTE | 2021-01-24 11:54 | EST ---
EXERCISE STRESS INDICATION: Chest pain. AGE: 70 SEX: F HT: 5'2" WT: 214 lbs. PROTOCOL: Lexiscan STAGE: NA DURATION OF EXERCISE: NA HEART RATE REST: 65 BLOOD PRESSURE REST: 119/84 MAXIMUM HEART RATE ACHIEVED: 88 MAXIMUM BLOOD PRESSURE: 125/81 85% MPHR: 127 100% MPHR: 149 METS: NA STRESS DATA: Heart rate is 65, pressure is 119/84 mmHg. Baseline EKG showed what seems to be atrial fibrillation. 0.4 mg of Lexiscan were obtained seconds per protocol. Max heart rate was 83 beats per minute and maximum pressure was 124/77 mmHg. Clinically the patient did not have any symptoms and the EKG did not show any significant ST or T-wave abnormalities concerning for ischemia. CONCLUSION: 1. Nondiagnostic electrocardiogram stress testing in response to Lexiscan. 2. Please follow up on the Cardiolite portion on a separate report from Radiology Department. MMODL / IJN: [id number] /
--- NOTE | 2021-01-24 13:08 | NM ---
EXAMINATION TYPE: NM stress lexiscan cardiolite DATE OF EXAM: 01/24/2021 COMPARISON: NONE HISTORY: Chest pain TECHNIQUE: After the intravenous administration of 10.2 mCi Tc 99m Sestamibi - Cardiolite resting SP ECT images acquired and minutes post injection. At peak stress 25.7 mCi Tc 99m Sestamibi - Stress images obtained at peak stress. The patient was stressed with 0.4mg Lexiscan. FINDINGS: There is a large fixed defect along the lateral wall with extension towards the inferior wa ll. This extends to the cardiac apex. This is fixed with a defect present on both resting and stress images. Reversibility is not identified. Polar map suggests some reversibility near the inferior late ral cardiac base which may be partially visualized on the SPECT imaging. Some wall dyskinesia appears to be in the mid anterior wall. Some dyskinesia may be within the apex. Ejection fraction is calculated to be 76 %. IMPRESSION: 1. There is a fixed defect along the inferior and lateral wall. Probably for prior infarct. 2. Some mild reversibility may be near the cardiac apex. 3. Normal ejection fraction of 76%. 4. Dyskinesia of the mid anterior wall. A Red level critical message alert has been initiated for Sebastián Frazier MD via the [employer] Critical Results System on 01/24/2021 1:05 PM. This message alert has been sent to Sebastián Frazier MD via the preferences provided by the clinician for the receipt of Radiology Critical Findings. Message ID [id number].
== END | disposition home or self-care (01) ==
LOC: RADNMMAIN 08:17
PROVIDERS: ATTEND Family Medicine
DX: G24.9 Dystonia, unspecified (principal); R94.39 Abnormal result of other cardiovascular function study; R07.9 Chest pain, unspecified
CPT/HCPCS: 93017; 78452; A9500; J2785

== ENCOUNTER → 2021-02-20 | Outpatient (CLI) | payer MEDICARE, OTHER ==
--- NOTE | 2021-02-20 09:49 | XR ---
EXAMINATION TYPE: XR thoracic spine 3 views DATE OF EXAM: 02/20/2021 COMPARISON: CT abdomen 06/18/2020. HISTORY: 70-year-old female with pain FINDINGS: Accentuated thoracic kyphosis. Either small or absent T12 ribs. There is dish throughout the mid and lower thoracic spine. Vertebral body heights are preserved and alignment is maintained. However, ther e appears to be moderate degenerative disc disease at L1-L2 with the appearance of a grade 1 retrolis thesis. In retrospect, this was present on the 06/18/[address] CT. IMPRESSION: 1. [facility] throughout the thoracic spine with accentuated thoracic kyphosis. 2. Moderate degenerative disc disease L1-L2 with grade 1 retrolisthesis. Otherwise, no vertebral comp ression collapse or malalignment.
== END | disposition home or self-care (01) ==
LOC: RADXRMAIN 08:51
PROVIDERS: ATTEND Family Medicine
DX: M51.36 Other intervertebral disc degeneration, lumbar region (principal); M40.294 Other kyphosis, thoracic region; M43.16 Spondylolisthesis, lumbar region
CPT/HCPCS: 72070

== ENCOUNTER → 2021-03-08 | Outpatient (CLI) | payer MEDICARE, OTHER ==
[2021-03-08 11:56] LABS: Magnesium 1.8 mg/dL (1.6-2.3); Potassium 4.8 mmol/L (3.5-5.1)
== END | disposition home or self-care (01) ==
LOC: LABWHC1 10:07
PROVIDERS: ATTEND Family Medicine
DX: I10 Essential (primary) hypertension (principal)
CPT/HCPCS: 36415; 80051; 82565; 83735; 84520

== ENCOUNTER 2021-03-14 06:59 | Day surgery (SDC) | payer MEDICARE, OTHER ==
[2021-03-12 08:46] VITALS: BMI 40.1
[~2021-03-14 06:59] MED LIST changes: +LACTATED RINGERS 1,000 ML IV SCH; -REGADENOSON 0.4 MG/5 ML SYRINGE IV PRN
[2021-03-14 07:26] VITALS: TEMP 97.2
[2021-03-14] MEDS ORDERED: LIDOCAINE 1% (10MG/ML) FOR IV START INTRADERMA ONE (07:33)
[2021-03-14 07:36] LABS: Glucose,Whole Blood 114 mg/dL (75-99)
[2021-03-14] MEDS ORDERED: PROPOFOL 10 MG/ML 20 ML VIAL IV ONE (07:48)
[2021-03-14] MEDS ORDERED: LIDOCAINE 1% INJ 10MG/ML (20 ML MDV) ONE (07:48)
[2021-03-14] MEDS ORDERED: LACTATED RINGERS 1,000 ML IV ONE (07:51)
--- NOTE | 2021-03-14 07:59 | P.GSHP ---
History of Present Illness H&P Date: 03/14/21 Chief Complaint: GERD This a 70-year-old female who presents today for EGD. Patient has history of GERD. She has a known moderate size hiatal hernia. Past Medical History Past Medical History: Atrial Fibrillation, Asthma, COPD, CVA/TIA, Diabetes Mellitus, GERD/Reflux, Hyperlipidemia, Hypertension, Myocardial Infarction (PR), Sleep Apnea/CPAP/BIPAP Additional Past Medical History / Comment(s): Hx stroke 1999 and January 2020; left sided weakness; low magnesium; sleep apnea (no machine), hx of pre- cancerous bleeding polyps (bowel resection), dysphagia (hx dilations), Hiatal Hernia., states current dysphagia and worsening heartburn. Last Myocardial Infarction Date:: UNKNOWN History of Any Multi-Drug Resistant Organisms: None Reported Past Surgical History: Appendectomy, Bowel Resection, Section, Cholecystectomy, Hernia Repair, Orthopedic Surgery Additional Past Surgical History / Comment(s): Colonoscopy; right knee surgery., EGD'S with dilations. Past Anesthesia/Blood Transfusion Reactions: No Reported Reaction Past Psychological History: No Psychological Hx Reported Smoking Status: Never smoker Past Alcohol Use History: None Reported Past Drug Use History: None Reported - Past Family History Mother Family Medical History: No Reported History Additional Family Medical History / Comment(s): . Father Family Medical History: Asthma, Coronary Artery Disease (CAD), CVA/TIA Additional Family Medical History / Comment(s): at age 65 due to asthma/breathing issues Medications and Allergies Home Medications Medication Instructions Recorded Confirmed Type Lovastatin [Mevacor] 40 mg PO DAILY 04/23/18 03/14/21 History Montelukast Sodium [Singulair] 10 mg PO HS 02/01/20 03/14/21 History Aspirin 81 mg PO DAILY chew 02/03/20 03/14/21 Rx Losartan Potassium [Cozaar] 100 mg PO DAILY 03/03/20 03/14/21 History atenoloL [Tenormin] 50 mg PO BID 30 Days #60 tab 03/06/20 03/14/21 Rx Acetaminophen [Tylenol Extra 1,000 mg PO DIRECTED PRN 03/12/21 03/14/21 History Strength] Albuterol Nebulizer 1 dose PO TID PRN 03/12/21 03/14/21 History Dapagliflozin Propanediol [Farxiga] 5 mg PO DAILY 03/12/21 03/14/21 History Enoxaparin [Lovenox] 40 mg SQ DAILY@1800 03/12/21 03/14/21 History Magnesium Oxide [Mag-Ox] 400 mg PO TID 03/12/21 03/14/21 History Omeprazole [PriLOSEC] 40 mg PO DAILY 03/12/21 03/14/21 History Warfarin [Coumadin] 2.5 mg PO DAILY 03/12/21 03/14/21 History amLODIPine [Norvasc] 10 mg PO DAILY 03/12/21 03/14/21 History Allergies Allergy/AdvReac Type Severity Reaction Status Date / Time theophylline [From Mohit-Dur] AdvReac Rapid Verified 03/14/21 07:18 Heart Rate Surgical - Exam Vital Signs Temp Pulse Resp BP Pulse Ox 97.2 F L 63 18 152/76 96 03/14/21 07:25 03/14/21 07:25 03/14/21 07:25 03/14/21 07:25 03/14/21 07:25 - General well developed, well nourished - Eyes PERRL - ENT normal pinna - Neck no masses - Respiratory normal expansion - Cardiovascular Rhythm: regular - Abdomen Abdomen: soft, non tender Results - Labs Abnormal Lab Results - Last 24 Hours (Table) 03/14/21 Range/Units 07:33 POC Glucose (mg/dL) 114 H (75-99) mg/dL Assessment and Plan Assessment: GERD, hiatal hernia We'll perform EGD.
--- NOTE | 2021-03-14 08:03 | P.OP ---
Date of Procedure: 03/14/21 Preoperative Diagnosis: GERD Postoperative Diagnosis: GERD Moderate size hiatal hernia Procedure(s) Performed: EGD Anesthesia: MAC Surgeon: Gigi Horan Pathology: other (Antrum, esophagus) Condition: stable Disposition: PACU Description of Procedure: Patient's placed on the endoscopy table in the lateral position. She received IV sedation. The gastroscope was oropharynx passed in the esophagus and the stomach. Scope was then placed through the pylorus. The first and second portion of the duodenum appeared normal. Scope summer back the antrum this was mildly inflamed. A biopsies performed. Scope was then retroflexed and there was a moderate to large size hiatal hernia. The GE junction was at 37 cm. The distal esophagus appeared to be slightly strictured. A biopsies performed. The proximal esophagus appeared normal. Scope was withdrawn for patient.
[2021-03-14 08:12] VITALS: RESP 16
[2021-03-14 08:31] VITALS: BP 132/75; PULSE 70
== END 2021-03-14 08:42 | disposition home or self-care (01) ==
LOC: ORWHC2ENDO 06:59
PROVIDERS: ATTEND Surgery
DX: K21.9 Gastro-esophageal reflux disease without esophagitis (principal); K44.9 Diaphragmatic hernia without obstruction or gangrene; I10 Essential (primary) hypertension; E78.5 Hyperlipidemia, unspecified; I25.2 Old myocardial infarction; G47.30 Sleep apnea, unspecified; E11.9 Type 2 diabetes mellitus without complications; I48.91 Unspecified atrial fibrillation; J44.9 Chronic obstructive pulmonary disease, unspecified; K29.50 Unspecified chronic gastritis without bleeding; Z79.01 Long term (current) use of anticoagulants; Z79.82 Long term (current) use of aspirin; Z79.84 Long term (current) use of oral hypoglycemic drugs; Z82.49 Family history of ischemic heart disease and other diseases of the circulatory system; Z86.73 Personal history of transient ischemic attack (TIA), and cerebral infarction without residual deficits; Z90.49 Acquired absence of other specified parts of digestive tract
CPT/HCPCS: 43239; 88305; J2001; J2704

== ENCOUNTER → 2021-03-15 | Outpatient (CLI) | payer MEDICARE, OTHER ==
--- NOTE | 2021-03-15 13:09 | CT ---
EXAMINATION TYPE: CT lumbar spine wo con DATE OF EXAM: 03/15/2021 COMPARISON: None HISTORY: Radiculopathy, lumbar region CT DLP: 2163.6 mGycm CONTRAST: None TECHNIQUE: CT of the lumbar spine is performed on a spiral scan at 3 mm thick sections. Reconstructed images are performed in the coronal and sagittal planes. FINDINGS: Note is made of a large hiatal hernia. There is a vacuum phenomenon present at the sacroili ac joints. There appears to be some flowing anterior lower thoracic calcification. Consider ankylosin g spondylitis. T12-L1: No focal disc herniation or significant disc bulge is evident. No spinal canal stenosis or neural foraminal stenosis is present. L1-L2: No focal disc herniation or significant disc bulge is evident. No spinal canal stenosis or n eural foraminal stenosis is present. Vacuum disc phenomenon is present L1-L2. L2-L3: No focal disc herniation or significant disc bulge is evident. No spinal canal stenosis or n eural foraminal stenosis is present L3-L4: No focal disc herniation or significant disc bulge is evident. No spinal canal stenosis or n eural foraminal stenosis is present L4-L5: No focal disc herniation or significant disc bulge is evident. No spinal canal stenosis or n eural foraminal stenosis is present. Facet hypertrophy is present some hard disc calcification is pre sent with minimal anterior thecal sac compression L5-S1: No focal disc herniation or significant disc bulge is evident. No spinal canal stenosis and moderate to severe foraminal stenosis present bilaterally at L5-S1 secondary to facet hypertrophy. Vertebral alignment appears normal. IMPRESSION: 1. Multilevel mild degenerative changes discussed above.
== END | disposition home or self-care (01) ==
LOC: RADCTMAIN 06:49
PROVIDERS: ATTEND Family Medicine
DX: M54.16 Radiculopathy, lumbar region (principal)
CPT/HCPCS: 72131

== ENCOUNTER → 2021-03-27 | Outpatient (CLI) | payer MEDICARE, OTHER ==
[2021-03-27 08:46] LABS: Basophils # (A) 0.1 k/uL (0-0.2); Basophils % (A) 1 %; Eosinophils # (A) 0.2 k/uL (0-0.7); Eosinophils % (A) 3 %; HCT 47.9 % (34.0-46.0); HGB 15.3 gm/dL (11.4-16.0); Lymphocytes # (A) 1.6 k/uL (1.0-4.8); Lymphocytes % (A) 29 %; MCH 30.5 pg (25.0-35.0); MCV 95.2 fL (80.0-100.0); Mean Platelet Volume 7.8; Monocytes # (A) 0.4 k/uL (0-1.0); Monocytes % (A) 7 %; Neutrophils # (A) 3.2 k/uL (1.3-7.7); Neutrophils % (A) 58 %; Platelet Count 218 k/uL (150-450); RBC 5.03 m/uL (3.80-5.40); RDW 13.4 % (11.5-15.5); WBC 5.6 k/uL (3.8-10.6)
== END | disposition home or self-care (01) ==
LOC: LABPAT 08:05
PROVIDERS: ATTEND Surgery
DX: Z01.812 Encounter for preprocedural laboratory examination (principal); K21.00 Gastro-esophageal reflux disease with esophagitis, without bleeding
CPT/HCPCS: 36415; 85025

== ENCOUNTER 2021-04-01 08:26 | Day surgery (SDC) | payer MEDICARE, OTHER ==
[~2021-04-01 08:26] MED LIST changes: +ACETAMINOPHEN TAB 500 MG TAB PO PRN; +DEXAMETHASONE SOD PHOSPHATE 4 MG/ML 1 ML VIAL IV ONE; +HEPARIN SODIUM,PORCINE/PF 5,000 UNIT/0.5 ML SYRINGE SQ PRN; +HYDROmorphone 0.5 MG/0.5 ML SYRINGE IVP PRN; +LIDOCAINE 1% (10MG/ML) FOR IV START INTRADERMA PRN; +METOCLOPRAMIDE 5 MG/ML 2 ML VIAL IVP PRN; +ONDANSETRON 4 MG/2 ML VIAL IVP ONE
[2021-04-01 09:10] LABS: Glucose,Whole Blood 109 mg/dL (75-99)
[2021-04-01] MEDS ORDERED: LACTATED RINGERS 1,000 ML IV ONE ×3 (09:25→12:07)
[2021-04-01 09:42] LABS: INR 1.2 (<1.2); Prothrombin Time 12.1 sec (9.0-12.0)
--- NOTE | 2021-04-01 10:12 | P.GSHP ---
History of Present Illness H&P Date: 04/01/21 Chief Complaint: GERD This a 70-year-old female referred from Dr. Sebastián Alvarado. MThe patient has had long-standing problems with reflux esophagitis. The patient underwent recent EGD is found have evidence of esophagitis. Patient has been well informed on the procedure of laparoscopic Karen fundoplication. The patient is aware the risk of the conversion to the open procedure, risk of injury to the stomach, liver and spleen. The patient is also a risk of recurrent GERD and dysphagia symptoms. The patient understands there is a postoperative diet of full liquids for 2 weeks after surgery. Past Medical History Past Medical History: Atrial Fibrillation, Asthma, COPD, CVA/TIA, Diabetes Mellitus, GERD/Reflux, Hyperlipidemia, Hypertension, Myocardial Infarction ([place]), Sleep Apnea/CPAP/BIPAP Additional Past Medical History / Comment(s): Hx stroke 1999 and January 2020; left sided weakness; has had a-fib "for years", hx. low magnesium, sleep apnea- doesn't use CPAP, hx. pre-cancerous bleeding polyps(bowel resection), dysphagia(hx. dilations), hiatal hernia, worsening heartburn Last Myocardial Infarction Date:: unknown History of Any Multi-Drug Resistant Organisms: None Reported Past Surgical History: Appendectomy, Bowel Resection, Section, Cholecystectomy, Hernia Repair, Orthopedic Surgery Additional Past Surgical History / Comment(s): Colonoscopy; right knee surgery; EGD's w/dilations Past Anesthesia/Blood Transfusion Reactions: No Reported Reaction Smoking Status: Never smoker - Past Family History Mother Family Medical History: No Reported History Additional Family Medical History / Comment(s): . Father Family Medical History: Asthma, Coronary Artery Disease (CAD), CVA/TIA Additional Family Medical History / Comment(s): at age 65 due to asthma/breathing issues Medications and Allergies Home Medications Medication Instructions Recorded Confirmed Type Lovastatin [Mevacor] 40 mg PO DAILY 04/23/18 03/29/21 History Montelukast Sodium [Singulair] 10 mg PO HS 02/01/20 03/29/21 History Aspirin 81 mg PO DAILY chew 02/03/20 03/29/21 Rx Losartan Potassium [Cozaar] 100 mg PO DAILY 03/03/20 03/29/21 History atenoloL [Tenormin] 50 mg PO BID 30 Days #60 tab 03/06/20 03/29/21 Rx Acetaminophen [Tylenol Extra 1,000 mg PO DIRECTED PRN 03/12/21 03/29/21 History Strength] Albuterol Nebulizer 1 dose PO TID PRN 03/12/21 03/29/21 History Dapagliflozin Propanediol [Farxiga] 5 mg PO DAILY 03/12/21 03/29/21 History Enoxaparin [Lovenox] 40 mg SQ DAILY@1800 03/12/21 03/29/21 History Magnesium Oxide [Mag-Ox] 400 mg PO TID 03/12/21 03/29/21 History Omeprazole [PriLOSEC] 40 mg PO DAILY 03/12/21 03/29/21 History Warfarin [Coumadin] 2.5 mg PO DAILY 03/12/21 03/29/21 History amLODIPine [Norvasc] 10 mg PO DAILY 03/12/21 03/29/21 History Isosorbide Mononitrate [Isosorbide 30 mg PO DAILY 03/29/21 03/29/21 History Mononitrate ER] Allergies Allergy/AdvReac Type Severity Reaction Status Date / Time theophylline [From Mohit-Dur] AdvReac Rapid Verified 03/29/21 11:24 Heart Rate Surgical - Exam Vital Signs Temp Pulse Resp BP Pulse Ox 97.8 F 78 18 145/75 97 04/01/21 09:00 04/01/21 09:00 04/01/21 09:00 04/01/21 09:00 04/01/21 09:00 - General well developed, well nourished, no distress - Eyes PERRL - ENT normal pinna - Neck no masses - Respiratory normal expansion - Cardiovascular Rhythm: regular - Abdomen Abdomen: soft, non tender Results - Labs Abnormal Lab Results - Last 24 Hours (Table) 04/01/21 04/01/21 Range/Units 09:09 09:10 PT 12.1 H (9.0-12.0) sec INR 1.2 H (<1.2) POC Glucose (mg/dL) 109 H (75-99) mg/dL Assessment and Plan Assessment: GERD. We'll perform laparoscopic Karen fundoplication
[2021-04-01] MEDS ORDERED: LIDOCAINE 1% INJ 10MG/ML (20 ML MDV) ONE (10:42)
[2021-04-01] MEDS ORDERED: MIDAZOLAM 2 MG/2 ML VIAL ONE (10:42)
[2021-04-01] MEDS ORDERED: ROCURONIUM 10 MG/ML (5 ML VIAL) IV ONE (10:42)
[2021-04-01] MEDS ORDERED: NEOSTIGMINE 1 MG/ML 10 ML VIAL ONE (10:42)
[2021-04-01] MEDS ORDERED: SUCCINYLCHOLINE CHLORIDE 100 MG/5 ML SYR IV ONE (10:42)
[2021-04-01] MEDS ORDERED: fentaNYL (PF) 50 MCG/ML 2 ML AMP ONE (10:42)
[2021-04-01] MEDS ORDERED: KETOROLAC 15 MG/ML 1 ML VIAL ONE (10:42)
[2021-04-01] MEDS ORDERED: PROPOFOL 10 MG/ML 20 ML VIAL IV ONE (10:42)
[2021-04-01] MEDS ORDERED: LABETALOL 5 MG/ML VIAL MDV ONE (10:42)
[2021-04-01] MEDS ORDERED: LIDOCAINE 0.5%-EPI 1:200,000 50 ML VIAL SQ ONE (11:12)
--- NOTE | 2021-04-01 12:48 | P.OP ---
Date of Procedure: 04/01/21 Preoperative Diagnosis: GERD Hiatal hernia Postoperative Diagnosis: GERD Paraesophageal hiatal hernia Procedure(s) Performed: Laparoscopic repair of hiatal hernia with mesh [employer] a Laparoscopic lysis of extensive adhesions Anesthesia: EDUAR Surgeon: Gigi Horan Estimated Blood Loss (ml): 25 Pathology: none sent Condition: stable Disposition: PACU Description of Procedure: The patient was placed on the operating table in the supine position. The patient received general anesthesia. And was placed in dorsal lithotomy position. The patient was prepped and draped in the usual sterile fashion. The skin incision sites were anesthetized with 1% local Xylocaine. The skin was incised in the left periumbilical area and then using a blade less 5 mm trocar under direct visualization panel cavity was entered. After adequate insufflation the laparoscope was then placed into the peritoneal cavity. Next a 5 mm trochars placed in the right epigastric position. Another 5 millimeter trocar the right lateral position. Another 5 millimeter trocar in the left lat eral position a 5 mm trocar is placed in the left epigastric position. And then the initial 5 mm trocar was exchanged for a 10 mm trocar. There were extensive adhesions noted in the epigastric area due to the patient's previous surgery. Approximately 20 minutes of operative time used to lyse adhesions. The left lateral lobe liver was retracted. The hernia was seen. The crural defect was then dissected using the Harmonic scissors device. A 360 crural dissection was performed the esophagus stomach was reduced back into the peritoneal Cavity. The crural defect was then closed using 2-0 Ethibond suture. Next, a piece of [employer] a mesh was placed. Cavity. This secured to the crural repair using 2-0 Ethibond suture. There was no injury seen to the stomach or esophagus. The dilator was then withdrawn. The abdomen was irrigated there is no bleeding seen. The trochars were then withdrawn and then skin incision sites were closed using 3-0 Monocryl suture Steri-Strips are applied. Patient thought procedure well and sent to recovery room in stable condition..
[2021-04-01] MEDS ORDERED: ONDANSETRON 4 MG/2 ML VIAL IVP PRN (12:49)
[2021-04-01] MEDS ORDERED: ONDANSETRON 4 MG/2 ML VIAL IVP ONE (12:59)
[2021-04-01] MEDS ORDERED: diphenhydrAMINE 50 MG/ML 1 ML VIAL ONE (13:06)
[2021-04-01] MEDS ORDERED: diphenhydrAMINE 50 MG/ML 1 ML VIAL IVP ONE (13:10)
[2021-04-01] MEDS ORDERED: D5-0.45% NACL WITH KCL 20MEQ/L 1,000 ML IV SCH (14:00)
[2021-04-01] MEDS: METOCLOPRAMIDE 5 MG/ML 2 ML VIAL IVP SCH ×2 (18:15→23:06)
[2021-04-01] MEDS: HYDROmorphone 1 MG/ML 1 ML SYRINGE IVP PRN (18:32)
[2021-04-01] MEDS: SODIUM CHLORIDE 0.9% 1,000 ML IV SCH (18:37)
[2021-04-01 20:32] LABS: Glucose,Whole Blood 123 mg/dL (75-99)
[2021-04-01] MEDS ORDERED: ACETAMINOPHEN TAB 500 MG TAB PO PRN (22:00)
[2021-04-01] MEDS ORDERED: ALBUTEROL NEBULIZED 2.5 MG/3 ML INHALATION PRN (22:00)
[2021-04-01] MEDS: MAGNESIUM OXIDE 400 MG TAB PO SCH (23:06)
[2021-04-02] MEDS: SODIUM CHLORIDE 0.9% 1,000 ML IV SCH ×3 (03:23→18:16)
[2021-04-02] MEDS: HYDROmorphone 1 MG/ML 1 ML SYRINGE IVP PRN (04:24)
[2021-04-02 06:05] LABS: Basophils % (A) 0 %; Eosinophils # (A) 0.1 k/uL (0-0.7); Eosinophils % (A) 1 %; HCT 42.2 % (34.0-46.0); HGB 12.7 gm/dL (11.4-16.0); Hypochromasia Slight; Lymphocytes # (A) 0.7 k/uL (1.0-4.8); Lymphocytes % (A) 6 %; MCH 29.4 pg (25.0-35.0); MCHC 30.2 g/dL (31.0-37.0); MCV 97.6 fL (80.0-100.0); Mean Platelet Volume 7.8; Monocytes # (A) 0.5 k/uL (0-1.0); Monocytes % (A) 4 %; Neutrophils # (A) 10.6 k/uL (1.3-7.7); Neutrophils % (A) 88 %; Platelet Count 180 k/uL (150-450); RBC 4.32 m/uL (3.80-5.40); RDW 13.5 % (11.5-15.5)
[2021-04-02] MEDS: METOCLOPRAMIDE 5 MG/ML 2 ML VIAL IVP SCH ×3 (06:16→18:10)
[2021-04-02 06:17] LABS: Albumin 3.4 g/dL (3.5-5.0); Calcium 9.5 mg/dL (8.4-10.2); Potassium 4.6 mmol/L (3.5-5.1); Total Bilirubin 0.7 mg/dL (0.2-1.3); Total Protein 6.5 g/dL (6.3-8.2)
[2021-04-02 06:24] LABS: Glucose,Whole Blood 110 mg/dL (75-99)
[2021-04-02] MEDS ORDERED: PANTOPRAZOLE 40 MG TABLET PO SCH (07:30)
[2021-04-02] MEDS: MAGNESIUM OXIDE 400 MG TAB PO SCH ×2 (08:47→16:44)
[2021-04-02] MEDS ORDERED: atenoloL 50 MG TAB PO SCH (09:00)
[2021-04-02] MEDS ORDERED: ASPIRIN 81 MG PO SCH (09:00)
[2021-04-02] MEDS ORDERED: LOSARTAN 50 MG TAB PO SCH (09:00)
[2021-04-02] MEDS ORDERED: ATORVASTATIN 10 MG TAB PO SCH (09:00)
[2021-04-02] MEDS ORDERED: ISOSORBIDE MONONITRATE ER 30 MG TAB.ER.24H PO SCH (09:00)
[2021-04-02] MEDS ORDERED: ENOXAPARIN 40 MG/0.4 ML SYRINGE SQ SCH (09:00)
[2021-04-02] MEDS ORDERED: Dapagliflozin Propanediol [Farxiga] PO SCH (09:00)
[2021-04-02] MEDS ORDERED: amLODIPine 10 MG TAB PO SCH (09:00)
--- NOTE | 2021-04-02 11:32 | FL ---
EXAMINATION TYPE: FL esophagus cervic/pharynx DATE OF EXAM: 04/02/2021 LIMITED UGI -ESOPHAGRAM: CLINICAL HISTORY: Hiatal hernia and reflux, needs central application surgery yesterday. TECHNIQUE: Limited esophagram is performed utilizing 25 cc of Isovue-370. A total of 30 seconds of f luoroscopic time was utilized during procedure. 23 spot images are saved to PACS. FINDINGS: The patient swallowed contrast without difficulty or delay. Some underlying esophageal dys motility with abnormal secondary and tertiary contractions noted. There is [id number] delay in flow of contrast along the diaphragmatic hiatus into the stomach, there is however no evidence of con trast extravasation to suggest leak. No persistent hiatal hernia is seen. Patient remains asymptomati c. IMPRESSION: No evidence of leak or significant obstruction status post Carter fundoplication surgery yesterday.
--- NOTE | 2021-04-02 11:35 | CONS ---
CONSULTATION This 70-year-old white female has a longstanding history of reflux esophagitis affecting her breathing. She is status post Karen hernia repair. She will be on full liquids for 2 weeks after surgery. She is complaining of some chest pressure with some gas that she normally gets after Karen procedure. PAST MEDICAL HISTORY: Atrial fibrillation, asthma, COPD, CVA, TIA, diabetes mellitus, GERD, dyslipidemia, hypertension, myocardial infarction, sleep apnea, atrial fibrillation, low magnesium levels. SURGERIES: Appendectomy, , cholecystectomy, hernia repair, orthopedic surgery, colonoscopy, right knee surgery. FAMILY HISTORY: Mother negative. Father with asthma, coronary artery disease. HOME MEDICINES: 1. Mevacor 40 daily. 2. Singulair 10 mg daily. 3. Aspirin 81 mg daily. 4. Cozaar 100 mg daily. 5. Tenormin 50 mg b.i.d. 6. Tylenol Extra Strength p.r.n. 7. Albuterol nebulizer t.i.d. 8. Farxiga 5 mg daily. 9. Lovenox 40 mg subcutaneously daily. 10.Mag-Ox 400 t.i.d. 11.Prilosec 40 mg daily. 12.Coumadin 2.5 mg daily. 13.Norvasc 10 mg daily. 14.Imdur 30 mg daily. ALLERGIES: THEOPHYLLINE. PHYSICAL EXAMINATION: VITAL SIGNS: Temperature 97.8, pulse 78, respiratory rate 16 to 18, blood pressure 148/45 75. O2 97. CARDIOVASCULAR: S1, S2. LUNGS: Clear. GI: Soft. HEMATOLOGY: Negative Homans. PSYCH: Fair mood and affect. OPHTHALMOLOGICAL: Pupils equal, round, reactive. ENT: External ear canals normal. ABDOMEN: Soft, nontender. INR is 1.2. ASSESSMENT: 1. Status post Karen fundoplication. 2. History of atrial fibrillation. 3. Asthma. 4. Hypomagnesemia. Continue home medication. Broad-spectrum antibiotic. DVT prophylaxis. Home medications will be reordered for the most part. Follow up for hypertension and diabetes. Prognosis guarded. MMODL / IJN: [id number] /
[2021-04-02 11:49] LABS: Glucose,Whole Blood 115 mg/dL (75-99)
[2021-04-02 12:16] VITALS: BMI 40.8
[2021-04-02 12:37] VITALS: RESP 18
--- NOTE | 2021-04-02 12:55 | P.DS ---
Providers Expected date of discharge: 04/02/21 Attending physician: Gigi Horan Consults: 04/01/21 12:49 Consult Physician Routine Consulting Provider: Sebastián Frazier Consult Reason/Comments: Medical management Do you want consulting provider notified?: Yes Primary care physician: Sebastián Frazier Hospital Course: Discharge diagnosis 1. Paraesophageal hiatal hernia and GERD status post laparoscopic repair of hiatal hernia with mesh and extensive lysis of adhesions Hospital course This is a 70-year-old female with paraesophageal hiatal hernia and GERD. She is status post laparoscopic repair of hiatal hernia with mesh and extensive lysis of adhesions. Her upper GI showed no evidence of leak or obstruction. She is tolerating the Karen clear liquid diet. She denies any difficulty swallowing. She is up and ambulating. Her pain is controlled. She's afebrile. She is stable for discharge. Please refer to chart for any further details. Physician [employer] note has been reviewed by physician. Signing provider agrees with the documented findings, assessment, and plan of care. Patient Condition at Discharge: Stable Plan - Discharge Summary Discharge Rx Participant: Yes New Discharge Prescriptions: New HYDROcodone/APAP 5-325MG [Irene 5-325] 1 tab PO Q6HR PRN 3 Days #12 tab PRN Reason: Pain Docusate [Colace] 100 mg PO BID #30 cap No Action Lovastatin [Mevacor] 40 mg PO DAILY Montelukast Sodium [Singulair] 10 mg PO HS Aspirin 81 mg PO DAILY chew Losartan Potassium [Cozaar] 100 mg PO DAILY atenoloL [Tenormin] 50 mg PO BID 30 Days #60 tab amLODIPine [Norvasc] 10 mg PO DAILY Omeprazole [PriLOSEC] 40 mg PO DAILY Enoxaparin [Lovenox] 40 mg SQ DAILY@1800 Albuterol Nebulizer 1 dose PO TID PRN PRN Reason: Shortness Of Breath Acetaminophen [Tylenol Extra Strength] 1,000 mg PO DIRECTED PRN PRN Reason: Pain Isosorbide Mononitrate [Isosorbide Mononitrate ER] 30 mg PO DAILY Magnesium Oxide [Mag-Ox] 400 mg PO TID Warfarin [Coumadin] 2.5 mg PO DAILY Dapagliflozin Propanediol [Farxiga] 5 mg PO DAILY Discharge Medication List Lovastatin [Mevacor] 40 mg PO DAILY 04/23/18 [History] Montelukast Sodium [Singulair] 10 mg PO HS 02/01/20 [History] Aspirin 81 mg PO DAILY chew 02/03/20 [Rx] Losartan Potassium [Cozaar] 100 mg PO DAILY 03/03/20 [History] atenoloL [Tenormin] 50 mg PO BID 30 Days #60 tab 03/06/20 [Rx] Acetaminophen [Tylenol Extra Strength] 1,000 mg PO DIRECTED PRN 03/12/21 [History] Albuterol Nebulizer 1 dose PO TID PRN 03/12/21 [History] Dapagliflozin Propanediol [Farxiga] 5 mg PO DAILY 03/12/21 [History] Enoxaparin [Lovenox] 40 mg SQ DAILY@1800 03/12/21 [History] Magnesium Oxide [Mag-Ox] 400 mg PO TID 03/12/21 [History] Omeprazole [PriLOSEC] 40 mg PO DAILY 03/12/21 [History] Warfarin [Coumadin] 2.5 mg PO DAILY 03/12/21 [History] amLODIPine [Norvasc] 10 mg PO DAILY 03/12/21 [History] Isosorbide Mononitrate [Isosorbide Mononitrate ER] 30 mg PO DAILY 03/29/21 [History] Docusate [Colace] 100 mg PO BID #30 cap 04/02/21 [Rx] HYDROcodone/APAP 5-325MG [Irene 5-325] 1 tab PO Q6HR PRN 3 Days #12 tab 04/02/21 [Rx] Follow up Appointment(s)/Referral(s): Gigi Horan MD [STAFF PHYSICIAN] - 1 Week Patient Instructions/Handouts: Fundoplication in Adults (DC) Activity/Diet/Wound Care/Special Instructions: Medicine service to complete discharge med rec No driving while taking Irene No lifting over 10 pounds You may shower. No soaking or tub baths for 2 weeks Very light activity until you are reevaluated at your follow up appointment with your surgeon Continue full liquid diet for the next 2 weeks Discharge Disposition: HOME SELF-CARE
[2021-04-02] MEDS ORDERED: HYDROcodone/APAP 5-325MG 1 EACH TAB PO PRN (14:56)
[2021-04-02] MEDS ORDERED: SODIUM CHLORIDE 0.9% 500 ML 500 ML IV ONE (15:08)
[2021-04-02 16:52] VITALS: BP 111/65; PULSE 77
[2021-04-02 17:02] LABS: Glucose,Whole Blood 111 mg/dL (75-99)
[2021-04-02 18:17] VITALS: TEMP 98
[2021-04-02] MEDS ORDERED: MONTELUKAST 10 MG TAB PO SCH (21:00)
== END 2021-04-02 18:23 | disposition home or self-care (01) ==
LOC: OR 08:26 → 6PED 12:33 → OR 04-02 18:23
PROVIDERS: ATTEND Surgery
DX: K44.9 Diaphragmatic hernia without obstruction or gangrene (principal); K21.00 Gastro-esophageal reflux disease with esophagitis, without bleeding; K66.0 Peritoneal adhesions (postprocedural) (postinfection); J44.9 Chronic obstructive pulmonary disease, unspecified; E11.9 Type 2 diabetes mellitus without complications; E78.5 Hyperlipidemia, unspecified; I25.10 Atherosclerotic heart disease of native coronary artery without angina pectoris; I10 Essential (primary) hypertension; R07.89 Other chest pain; Z20.822 Contact with and (suspected) exposure to COVID-19; G47.30 Sleep apnea, unspecified; I69.354 Hemiplegia and hemiparesis following cerebral infarction affecting left non-dominant side; I25.2 Old myocardial infarction; I48.91 Unspecified atrial fibrillation; Z85.038 Personal history of other malignant neoplasm of large intestine; Z90.49 Acquired absence of other specified parts of digestive tract; Z98.891 History of uterine scar from previous surgery; Z98.890 Other specified postprocedural states; Z82.49 Family history of ischemic heart disease and other diseases of the circulatory system; Z82.5 Family history of asthma and other chronic lower respiratory diseases; Z79.01 Long term (current) use of anticoagulants; Z79.84 Long term (current) use of oral hypoglycemic drugs; Z79.02 Long term (current) use of antithrombotics/antiplatelets; Z79.82 Long term (current) use of aspirin; Z79.899 Other long term (current) drug therapy; Z88.8 Allergy status to other drugs, medicaments and biological substances
CPT/HCPCS: 43280; 97162; 80053; 85025; 85610; 83036; 87635; 74210; C1781; J2250; J1200; J1100; J2710; J2765 ×2; J0690 ×2; J2405; J2001; J1650; J3010; J1170 ×3; J1885; J0330; J2704; Q9967; J1644

== ENCOUNTER → 2021-11-06 | Outpatient (CLI) | payer MEDICARE, OTHER ==
--- NOTE | 2021-11-06 08:38 | BD ---
EXAMINATION TYPE: Axial Bone Density DATE OF EXAM: 11/06/2021 COMPARISON: NONE CLINICAL HISTORY: 71 year old Female. ICD-10 CODE: ASYMPTOMATIC MENOPAUSAL STATE Height: 60 Weight: 217.4 FRAX RISK QUESTIONS: Alcohol (3 or more units per day): no Family History (Parent hip fracture): yes Glucocorticoids (More than 3mos): no (Ex: prednisone, prednisolone, methylprednisolone, dexamethasone, and hydrocortisone). History of Fracture in Adulthood: yes Secondary Osteoporosis: 1. Type 1 Diabetes: no 2. Hyperthyroidism: no 3. Menopause before 45: no 4. Malnutrition: no 5. Chronic liver disease: no Rheumatoid Arthritis: no Current Tobacco Use: no RISK FACTORS HISTORY OF: Surgery to Spine/Hip(right/left)/Wrist (right/left): no Family History of Osteoporosis: no Active: no Diet low in dairy products/other sources of calcium: yes Postmenopausal woman: yes Lost more than 2 inches in height since high school: no MEDICATIONS: Additional History: EXAM MEASUREMENTS: Bone mineral densitometry was performed using the [employer] System. Bone mineral density as measured about the Lumbar spine is: ----- L1-L4(G/cm2): 1.239 T Score Values are as follows: ----- L1: 2.1 ----- L2: 1.0 ----- L3: 1.0 ----- L4: -1.2 ----- L1-L4: 0.5 Bone mineral density : baseline Bone mineral density about the R hip (g/cm2): 0.744 Bone mineral density about the L hip (g/cm2): 0.801 T Score values are as follows: -----R Neck: -2.1 -----L Neck: -1.7 -----R Total: -0.6 -----L Total: -0.9 Bone mineral density : baseline FRAX%s: The graph provided illustrates a 27.4% chance for a major osteoporotic fx and a 10.2% chance for the hips probability for fx in 10 years time. IMPRESSION: No evidence of osteopenia or osteoporosis NOTE: T-SCORE=SD OF THE YOUNG ADULT MEAN.
--- NOTE | 2021-11-07 14:26 | MM ---
Reason for exam: screening (asymptomatic). Last mammogram was performed 4 years and 5 months ago. History: Patient is postmenopausal. Family history of breast cancer in 3 maternal aunts. Physical Findings: A clinical breast exam by your physician is recommended on an annual basis and results should be correlated with mammographic findings. MG 3D Screening Mammo W/Cad Bilateral CC and MLO view(s) were taken. Prior study comparison: June 17, 2017, bilateral MG 3d screening mammo w/cad. There are scattered fibroglandular densities. Benign appearing bilateral calcifications. There is chronic nodularity in the left breast, stable. There are grouped calcifications in the left lower inner breast. ASSESSMENT: Incomplete: need additional imaging evaluation, BI-RAD 0 RECOMMENDATION: Special view mammogram of the left breast. [facility] will attempt to contact patient to return for supplemental views.
== END | disposition home or self-care (01) ==
LOC: RADMAMWWP 06:44
PROVIDERS: ATTEND Family Medicine
DX: Z12.31 Encounter for screening mammogram for malignant neoplasm of breast (principal); Z78.0 Asymptomatic menopausal state
CPT/HCPCS: 77063; 77067; 77080

== ENCOUNTER → 2021-11-15 | Outpatient (CLI) | payer MEDICARE, OTHER | END | disposition home or self-care (01) | LOC: RADMAMWWP 10:09 | PROVIDERS: ATTEND Family Medicine | DX: Z53.9 Procedure and treatment not carried out, unspecified reason (principal) ==

== ENCOUNTER → 2021-12-05 | Outpatient (CLI) | payer MEDICARE, OTHER ==
--- NOTE | 2021-12-06 04:55 | MR ---
EXAMINATION TYPE: MR lumbar spine wo con DATE OF EXAM: 12/05/2021 COMPARISON: None HISTORY: Back pain x8 months Multiplanar multiecho imaging of the lumbar spine without contrast. The lumbar vertebrae have normal alignment. Disc spaces are fairly normal for age. There is a small p osterior disc bulge at L1-2. There is developmentally adequate spinal canal. There is some hypertroph ic facet arthropathy at L1-2 and minimal lateral recess stenosis. No significant spinal stenosis. No compression fracture. No lumbar paraspinal mass. Sacroiliac joints are intact. The lumbar neural fora mateo are fairly well-maintained. IMPRESSION: Mild posterior disc bulge at L1-2. No spinal stenosis. No fracture.
== END | disposition home or self-care (01) ==
LOC: RADMRIMAIN 12:45
PROVIDERS: ATTEND Orthopaedic Surgery
DX: M51.86 Other intervertebral disc disorders, lumbar region (principal); M48.061 Spinal stenosis, lumbar region without neurogenic claudication
CPT/HCPCS: 72148

== ENCOUNTER → 2022-01-15 | Outpatient (CLI) | payer MEDICARE, OTHER ==
[2022-01-15 11:05] VITALS: BP 129/82; PULSE 67; RESP 18; TEMP 98.6
--- NOTE | 2022-01-15 11:14 | P.PAINPG ---
PQRS Measure Charge Sheet Comment: HISTORY OF PRESENT ILLNESS: 71 yr old female as a referral from Dr. Saldana presents today with severe and chronic LBP secondary to L1-L2 disc bulge for evaluation. Pt states her pain level is 8/10 in intensity, constant for the last year, achy in character with BLE numbness. Provoked with lifting, bending and pushing. Palliated with PT integrated with massage in May 2021, medications ( Tylenol OTC ), topicals, ice, heat, home stretching regimen, repositioning and rest. PMH: Atrial Fibrillation, Asthma, COPD, CVA (1999, 2019), Diabetes Mellitus, GERD, Hyperlipidemia, HTN, ND, AMARI PSH: Hiatal Hernia Repair, Appendectomy, Bowel Resection, Section, Cholecystectomy, R Knee Surgery, Colonoscopy/ EGD w dilations SH: Negative x 3 FH: Mother- No Reported History. Father- Asthma, CAD, CVA/ at age 65. All: Theophilline Meds: See list REVIEW OF ORGAN SYSTEMS: CONSTITUTIONAL: No fevers or chills. No recent weight loss. NEUROLOGICAL: + numbness and tingling along the distal extremities. No seizure disorders or headaches. MUSCULOSKELETAL: + pain PSYCHIATRIC: Denies current depression or suicidal thoughts. Physical Examinations : Constitutional : Cooperative , not in acute distress . Neurologic : Cranial nerve II to XII intact. No focal neurological deficits. Psychiatric : alert & oriented x 3. Matching mood & appropriate affect. Judgment & insight intact. Musculoskeletal : Cervical Spine Motor strength in the deltoid and biceps: Normal right side. Normal Left side Motor strength biceps and the wrist extensors: Normal right side . Normal left side Motor strength in the triceps muscle: Normal right side. Normal left side Deep tendon reflexes: Normal at the biceps. Normal at Brachioradialis. Normal at triceps Vertebral body tenderness to deep palpation over Cervical facet loading test: positive bilaterally Spurling test: positive bilaterally Neck distraction test: positive bilaterally Juan R sign: positive bilaterally Lumbar spine Motor strength lower extremities ,thigh and legs 5/5 Right side , 5/5 Left side Deep tendon reflexes : Normal Knee Jerk. Normal Ankle Jerk Vertebral body tenderness over L1, L2 Lumbar facet Loading Test: positive Right / positive Left Range of motion of the lumbar spine Flexion 30 degrees, extension 10 degrees Straight Leg Raise test: Left/ Right positive at degree Sue test: positive right / positive left. Severe tenderness over the Sacroiliac joint on the Right / Left sides Gaenslen test: positive bilaterally Seated flexion test: positive bilaterally. Sacral spine : Severe tenderness over the Sacroiliac joint: right side / left side Range of motion: Flexion of the lumbar spine <60 degrees Range of motion: Extension of the lumbar spine <20 degrees Gaenslen's Test positive Tee's Test positive Sue test: positive right side / left side Thigh Thrust Test Sacral Thrust Test Imaging: MRI without contrast of the lumbar spine from 12/05/21 reviewed Assessment/ Plan : Lumbar disc bulge Recommendation of LESI L1-L2. May need a series of injections, up to 3 within a 6 mo period, for optimal pain relief. Need medical clearance to discontinue Coumadin from Dr Frazier. Risks, benefits of procedure discussed and patient verbalized understanding. Admits to aspirin or anti- coagulant use and denies medical history of diabetes. Protocol for discontinuation/ continuation of medications mir procedure discussed. All questions answered. I have spent greater than 30 minutes on patient care today. Dr Marrufo was available by phone for the evaluation of this patient. The time was used to review the medical records including relevant urine studies and Prescription history (MAPs), review of the available imaging, evaluation and examination of the patient, coordination of care with the medical staff and if applicable referring physicians, as well as creation of the medical record PQRS Narrative: Smoking Status Never smoker Home Medications: Ambulatory Orders Lovastatin [Mevacor] 40 mg PO DAILY 04/23/18 Montelukast Sodium [Singulair] 10 mg PO HS 02/01/20 Aspirin 81 mg PO DAILY chew 02/03/20 Losartan Potassium [Cozaar] 100 mg PO DAILY 03/03/20 atenoloL [Tenormin] 50 mg PO BID 30 Days #60 tab 03/06/20 Acetaminophen [Tylenol Extra Strength] 1,000 mg PO DIRECTED PRN 03/12/21 Albuterol Nebulizer 1 dose PO TID PRN 03/12/21 Dapagliflozin Propanediol [Farxiga] 5 mg PO DAILY 03/12/21 Enoxaparin [Lovenox] 40 mg SQ DAILY@1800 03/12/21 Magnesium Oxide [Mag-Ox] 400 mg PO TID 03/12/21 Omeprazole [PriLOSEC] 40 mg PO DAILY 03/12/21 Warfarin [Coumadin] 2.5 mg PO DAILY 03/12/21 amLODIPine [Norvasc] 10 mg PO DAILY 03/12/21 Isosorbide Mononitrate [Isosorbide Mononitrate ER] 30 mg PO DAILY 03/29/21 Docusate [Colace] 100 mg PO BID #30 cap 04/02/21 HYDROcodone/APAP 5-325MG [[place] 5-325] 1 tab PO Q6HR PRN 3 Days #12 tab 04/02/21 Controlled Substance Measures - Controlled Substance Measures Is patient prescribed a controlled substance at discharge?: No
== END ==
LOC: PNWHC3 10:30
PROVIDERS: ATTEND Specialist
DX: M51.26 Other intervertebral disc displacement, lumbar region (principal); M48.061 Spinal stenosis, lumbar region without neurogenic claudication; I48.91 Unspecified atrial fibrillation; J44.9 Chronic obstructive pulmonary disease, unspecified; Z86.73 Personal history of transient ischemic attack (TIA), and cerebral infarction without residual deficits; E11.9 Type 2 diabetes mellitus without complications; E78.5 Hyperlipidemia, unspecified; I10 Essential (primary) hypertension; I25.2 Old myocardial infarction; Z88.8 Allergy status to other drugs, medicaments and biological substances
CPT/HCPCS: 99211

== ENCOUNTER → 2023-07-10 | Outpatient (CLI) | payer MEDICARE ==
[2023-07-10 13:35] LABS: ALT 20 U/L (4-34); AST 28 U/L (14-36); African American GFR (CKD) 66 (>60 ml/min/1.73 sqM); Albumin 4.2 g/dL (3.5-5.0); Albumin/Globulin Ratio 1.2; Alkaline Phosphatase 229 U/L (38-126); Anion Gap 11 mmol/L; Blood Urea Nitrogen 22 mg/dL (7-17); Calcium 9.5 mg/dL (8.4-10.2); Carbon Dioxide 27 mmol/L (22-30); Chloride 102 mmol/L (98-107); Globulin 3.5 g/dL; Glucose 115 mg/dL (74-99); Non-African American GFR(CKD) 57 (>60 ml/min/1.73 sqM); Potassium 4.8 mmol/L (3.5-5.1); Sodium 140 mmol/L (137-145); Total Bilirubin 0.8 mg/dL (0.2-1.3); Total Protein 7.7 g/dL (6.3-8.2)
[2023-07-10 13:42] LABS: NT-Pro-B-Type Natriuretic Pept 582 pg/mL
[2023-07-10 20:24] LABS: HCT 47.9 % (37.2-46.3); HGB 15.7 g/dL (12.0-15.0); MCHC 32.8 g/dL (32.0-37.0); MCV 100.6 FL (80.0-97.0); Mean Platelet Volume 10.1 FL (9.5-12.2); NRBC Per 100 WBC 0 X 10*3/uL (0.00-0.01); Platelet Count 157 X 10*3/uL (140-440); RBC 4.76 X 10*6/uL (4.10-5.20); RDW 11.9 % (11.5-14.5); WBC 5.87 X 10*3/uL (4.50-10.00)
[2023-07-10 21:02] LABS: Chol/HDL Ratio 3.78 Ratio; LDL Cholesterol,Calculated 69.1 mg/dL (0.0-131.0)
[2023-07-10 21:10] LABS: INR 1.75 sec (0.93-1.11); Prothrombin Time 18.2 sec (9.9-11.9)
== END | disposition home or self-care (01) ==
LOC: LABWHC1 12:13
PROVIDERS: ATTEND Family Medicine
DX: I48.91 Unspecified atrial fibrillation (principal); N18.31 Chronic kidney disease, stage 3a; E11.22 Type 2 diabetes mellitus with diabetic chronic kidney disease; E83.42 Hypomagnesemia
CPT/HCPCS: 36415; 80053; 80061; 83036; 83880; 84443; 85027; 85610

== ENCOUNTER → 2024-05-17 | Outpatient (CLI) | payer MEDICARE ==
[2024-05-17 15:20] LABS: INR 1.91 sec (0.93-1.11); Prothrombin Time 19.8 sec (9.9-11.9)
[2024-05-17 15:26] LABS: Blood Urea Nitrogen 15.8 mg/dL (9.0-27.0); Carbon Dioxide 22.2 mmol/L (21.6-31.8); Chloride 102 mmol/L (96-109); Potassium 4.6 mmol/L (3.5-5.5); Sodium 136 mmol/L (135-145)
[2024-05-17 20:48] LABS: Microalbumin Creatinine Ratio <29 mg/g Cr (0-30); Urine Creatinine 41.5 mg/dL (28.0-217.0)
== END | disposition home or self-care (01) ==
LOC: LABWHC1 08:45
PROVIDERS: ATTEND Family Medicine
DX: E11.9 Type 2 diabetes mellitus without complications (principal); Z79.899 Other long term (current) drug therapy
CPT/HCPCS: 36415; 80051; 82043; 82565; 82570; 84520; 85610

== ENCOUNTER → 2024-07-13 | Outpatient (CLI) | payer MEDICARE ==
[2024-07-13 16:53] LABS: ALT 14 U/L (8-44); AST 29 U/L (13-35); Albumin 4.2 g/dL (3.8-4.9); Albumin/Globulin Ratio 1.35 Ratio (1.60-3.17); Alkaline Phosphatase 165 U/L (41-126); BUN/Creat Ratio 15.27 Ratio (12.00-20.00); Blood Urea Nitrogen 16.8 mg/dL (9.0-27.0); Calcium 9.5 mg/dL (8.7-10.3); Carbon Dioxide 22.3 mmol/L (21.6-31.8); Chloride 103 mmol/L (96-109); Chol/HDL Ratio 4.49 Ratio; Globulin 3.1 g/dL (1.6-3.3); Glucose 117 mg/dL (70-110); LDL Cholesterol,Calculated 90.1 mg/dL (0.0-131.0); Potassium 5.2 mmol/L (3.5-5.5); Sodium 137 mmol/L (135-145); Total Bilirubin 0.7 mg/dL (0.3-1.2); Total Protein 7.3 g/dL (6.2-8.2)
[2024-07-13 17:12] LABS: HCT 50.3 % (37.2-46.3); MCH 32.5 pg (27.0-32.0); MCHC 31.8 g/dL (32.0-37.0); MCV 102.2 FL (80.0-97.0); Mean Platelet Volume 10.8 FL (9.5-12.2); NRBC Per 100 WBC 0 X 10*3/uL (0.00-0.01); Platelet Count 159 X 10*3/uL (140-440); RBC 4.92 X 10*6/uL (4.10-5.20); WBC 5.54 X 10*3/uL (4.50-10.00)
[2024-07-13 18:07] LABS: Microalbumin Creatinine Ratio <17 mg/g Cr (0-30); Urine Creatinine 71.7 mg/dL (28.0-217.0)
== END | disposition home or self-care (01) ==
LOC: LABWHC1 08:43
PROVIDERS: ATTEND Family Medicine
DX: Z00.00 Encounter for general adult medical examination without abnormal findings (principal)
CPT/HCPCS: 36415; 80053; 80061; 82043; 82570; 83036; 84443; 85027

== ENCOUNTER → 2024-09-12 | Outpatient (CLI) | payer MEDICARE ==
--- NOTE | 2024-09-12 14:26 | BD ---
EXAMINATION TYPE: Axial Bone Density DATE OF EXAM: 09/12/2024 CLINICAL HISTORY: 74 years old Female. ICD-10 CODE: Z78.0 MENOPAUSAL , Additional History: Height: 59.5 Weight: 197 FRAX RISK QUESTIONS: Family History (Parent hip fracture): yes History of Fracture in Adulthood: yes Secondary Osteoporosis: no RISK FACTORS HISTORY OF: Surgery to Spine/Hip(right/left)/Wrist (right/left): no MEDICATIONS: Thyroid Medications: no Osteoporosis Medications: no EXAM MEASUREMENTS: Bone mineral densitometry was performed using the [employer] System. Bone mineral density as measured about the Lumbar spine is: ----- L1-L4(G/cm2): 1.213 T Score Values are as follows: ----- L1: 1.9 ----- L2: 1.0 ----- L3: 0.6 ----- L4: -1.5 ----- L1-L4: 0.3 Z Score Values are as follows: ----- L1: 2.8 ----- L2: 1.9 ----- L3: 1.5 ----- L4: -0.5 ----- L1-L4: 1.2 Bone mineral density has: Decreased -3.3% since study of: 11/06/2021 Bone mineral density about the R hip (g/cm2): 0.904 Bone mineral density about the L hip (g/cm2): 0.860 T Score values are as follows: -----R Neck: -2.1 -----L Neck: -2.0 -----R Total: -0.8 -----L Total: -1.2 Z Score values are as follows: -----R Neck: -0.8 -----L Neck: -0.6 -----R Total: 0.3 -----L Total: 0.0 Bone mineral density has: Decreased -3.3% since study of: 11/06/2021 FRAX%s: The graph provided illustrates a 31.9% chance for a major osteoporotic fx and a 18.5% chance for the hips probability for fx in 10 years time. IMPRESSION: Osteopenia (T Score between -2.5 and -1) remains present. There is slightly increased risk of fracture and the patient may be considered for treatment. Re-Screen 2-5 years. NOTE: T-SCORE=SD OF THE YOUNG ADULT MEAN. [facility], , 09/12/2024 2:23 PM
--- NOTE | 2024-09-12 14:41 | MM ---
Reason for Exam: Screening (asymptomatic). Last mammogram was performed 2 year(s) and 10 month(s) ago. Patient History: Menarche at age 13. First Full-Term at age 21. Postmenopausal. Maternal aunt had breast cancer, age 55. Maternal aunt had breast cancer, age 55. Maternal aunt had breast cancer, age 53. Risk Values: Era 5 year model risk: 1.4%. NCI Lifetime model risk: 3.1%. Prior Study Comparison: 06/17/2017 Bilateral Screening Mammogram, [facility]. 11/06/2021 Bilateral Screening Mammogram, [facility]. Tissue Density: There are scattered areas of fibroglandular density. Findings: Analyzed By CAD. There are scattered tiny benign-appearing round calcifications bilaterally redemonstrated. There is no suspicious new group of microcalcifications or new suspicious mass in either breast. Overall Assessment: Benign, BI-RAD 2 Management: Screening Mammogram of both breasts in 1 year. . Patient should continue monthly self-breast exams. A clinical breast exam by your physician is recommended on an annual basis. This exam should not preclude additional follow-up of suspicious palpable abnormalities. Note on Era scores and lifetime risk: 1. A Era score greater than 3% is considered moderate risk. If this is the case, consider specialist referral to assess eligibility for a risk reducing agent. 2. If overall lifetime risk for the development of breast cancer is 20% or higher, the patient may qualify for future screening with alternating mammogram and breast MRI. [facility], , 09/12/2024 2:38 PM. Electronically signed and approved by: Marko Person M.D.
== END | disposition home or self-care (01) ==
LOC: RADBDWWP 13:08
PROVIDERS: ATTEND Family Medicine
DX: Z12.31 Encounter for screening mammogram for malignant neoplasm of breast (principal); R92.323 Mammographic fibroglandular density, bilateral breasts; M85.89 Other specified disorders of bone density and structure, multiple sites; Z80.3 Family history of malignant neoplasm of breast; Z78.0 Asymptomatic menopausal state
CPT/HCPCS: 77063; 77067; 77080

== ENCOUNTER → 2024-10-27 | Outpatient (CLI) | payer MEDICARE ==
--- NOTE | 2024-10-27 09:08 | MR ---
EXAMINATION TYPE: MR lumbar spine wo con DATE OF EXAM: 10/27/2024 8:41 AM COMPARISON: 12/05/2021 CLINICAL INDICATION: Female, 74 years old with history of M54.5 LUMBAGO, Lower back pain, radiates in to left buttock x 2 yrs, recent fall. TECHNIQUE: Multiplanar, multisequence images of the lumbar spine were acquired without IV contrast. FINDINGS: There is mild multilevel degenerative disc disease with desiccated discs. More moderate at L1-L2 give n disc height loss and diffuse disc bulge. A tiny left intraforaminal annular fissure has developed at L5-S1. Posterior annular fissure at L4-L5 . Conus medullaris is normal. No suspicious bone marrow replacement. Vertebral body heights are preserved. Moderate facet arthropathy throughout, more severe in the mid and lower lumbar spine. Ligamentum flav um thickening L1-L2 and L2-L3. Degenerative grade 1 retrolisthesis redemonstrated L1-L2. Combination of retrolisthesis, disc bulge, ligamentum flavum thickening at this level contributes to mild overall narrowing of the spinal canal. Otherwise, no significant spinal canal stenosis seen. On the right, changes result in mild neuroforaminal stenosis at L1-L2. On the left, changes result in minimal inferior foraminal narrowing L1-L2, L3-L4, L4-L5. No prevertebral paravertebral soft tissue abnormality seen. IMPRESSION: 1. Advanced hypertrophic facet arthropathy especially mid to lower lumbar spine. Degenerative grade 1 retrolisthesis L1-L2. No vertebral compression collapse. 2. Mild multilevel degenerative disc disease with development of a tiny left intraforaminal annular f issure L5-S1. Small posterior annular fissure noted at L4/L5. 2. Progression in moderate degenerative disc disease at L1-L2. Progression in ligamentum flavum thick ening at both L1-L2 and L2-L3. Resultant mild spinal canal stenosis at L1-L2. 3. Mild right neuroforaminal stenosis at L1-L2. Minimal inferior foraminal narrowing at a few levels on the left. [facility], Workstation: [email or web address], 10/27/2024 9:06 AM
== END | disposition home or self-care (01) ==
LOC: RADMRIMAIN 08:09
PROVIDERS: ATTEND Family Medicine
DX: M47.816 Spondylosis without myelopathy or radiculopathy, lumbar region (principal); M48.061 Spinal stenosis, lumbar region without neurogenic claudication; M43.16 Spondylolisthesis, lumbar region; M51.360 Other intervertebral disc degeneration, lumbar region with discogenic back pain only
CPT/HCPCS: 72148

== ENCOUNTER 2025-01-27 01:21 | Emergency (ER) | payer MEDICARE ==
[2025-01-27 01:35] VITALS: TEMP 98.1
[2025-01-27] MEDS: SODIUM CHLORIDE 0.9% 1,000 ML IV ONE (01:57)
[2025-01-27 02:02] LABS: Basophils # (A) 0.08 10*3/uL (0.00-0.10); Basophils % (A) 1.5 %; Eosinophils # (A) 0.13 10*3/uL (0.04-0.35); Eosinophils % (A) 2.5 %; HCT 46.2 % (37.2-46.3); HGB 15.6 g/dL (12.0-15.0); Lymphocytes # (A) 1.62 10*3/uL (0.90-5.00); Lymphocytes % (A) 31.2 %; MCH 34.6 pg (27.0-32.0); MCHC 33.8 g/dL (32.0-37.0); MCV 102.4 fL (80.0-97.0); Monocytes # (A) 0.66 10*3/uL (0.20-1.00); Monocytes % (A) 12.7 %; Neutrophils # (A) 2.69 10*3/uL (1.80-7.70); Neutrophils % (A) 51.7 %; Platelet Count 133 10*3/uL (140-440); RBC 4.51 10*6/uL (4.10-5.20); RDW 11.8 % (11.5-14.5); WBC 5.20 10*3/uL (4.50-10.00)
[2025-01-27 02:16] LABS: ALT 20 U/L (4-34); AST 28 U/L (14-36); African American GFR (CKD) 69 (>60 ml/min/1.73 sqM); Albumin 4.2 g/dL (3.5-5.0); Alkaline Phosphatase 303 U/L (38-126); Anion Gap 9 mmol/L; Blood Urea Nitrogen 17 mg/dL (7-17); Calcium 9.5 mg/dL (8.4-10.2); Carbon Dioxide 25 mmol/L (22-30); Chloride 106 mmol/L (98-107); Glucose 109 mg/dL (74-99); Magnesium 1.9 mg/dL (1.6-2.3); Non-African American GFR(CKD) 60 (>60 ml/min/1.73 sqM); Potassium 4.6 mmol/L (3.5-5.1); Sodium 140 mmol/L (137-145); Total Protein 7.2 g/dL (6.3-8.2)
--- NOTE | 2025-01-27 02:25 | ED ---
General Adult HPI - General Chief complaint: Dizziness Stated complaint: Light Headed and Dizzy Time Seen by Provider: 01/27/25 01:34 Source: patient, RN notes reviewed, old records reviewed Mode of arrival: ambulatory Limitations: no limitations - History of Present Illness Initial comments: 74-year-old female presenting for evaluation of dizziness and lightheadedness. Patient states symptoms have been present for the past 1 month. She states she does not feel well. She denies measured fever but states she has had some hot and cold episodes. No central chest pain. No abdominal pain. No focal numbness or weakness. - Related Data Home Medications Medication Instructions Recorded Confirmed Lovastatin [Mevacor] 40 mg PO DAILY 04/23/18 02/20/22 Montelukast Sodium [Singulair] 10 mg PO HS 02/01/20 02/20/22 Losartan Potassium [Cozaar] 100 mg PO DAILY 03/03/20 02/20/22 Acetaminophen [Tylenol Extra 1,000 mg PO DIRECTED PRN 03/12/21 02/20/22 Strength] Albuterol Nebulizer 1 dose PO TID PRN 03/12/21 02/20/22 Enoxaparin [Lovenox] 40 mg SQ DAILY@1800 03/12/21 02/20/22 Magnesium Oxide [Mag-Ox] 400 mg PO TID 03/12/21 02/20/22 Omeprazole [PriLOSEC] 40 mg PO DAILY 03/12/21 02/20/22 Warfarin [Coumadin] 2.5 mg PO DAILY 03/12/21 02/20/22 amLODIPine [Norvasc] 10 mg PO DAILY 03/12/21 02/20/22 Previous Rx's Medication Instructions Recorded Aspirin 81 mg PO DAILY chew 02/03/20 atenoloL [Tenormin] 50 mg PO BID 30 Days #60 tab 03/06/20 Allergies Allergy/AdvReac Type Severity Reaction Status Date / Time theophylline [From [place]] AdvReac Rapid Verified 01/27/25 01:29 Heart Rate Review of Systems ROS Statement: Those systems with pertinent positive or pertinent negative responses have been documented in the HPI. ROS Other: All systems not noted in ROS Statement are negative. Past Medical History Past Medical History: Atrial Fibrillation, Asthma, COPD, CVA/TIA, Diabetes Mellitus, GERD/Reflux, Hearing Disorder / Deafness, Hyperlipidemia, Hypertension, Myocardial Infarction (NV), Sleep Apnea/CPAP/BIPAP Additional Past Medical History / Comment(s): Hx stroke 1999 and January 2020; left sided weakness; has had a-fib "for years", hx. low magnesium, sleep apnea- doesn't use CPAP, hx. pre-cancerous bleeding polyps(bowel resection), dysphagia(hx. dilations), hiatal hernia, worsening heartburn Last Myocardial Infarction Date:: unknown History of Any Multi-Drug Resistant Organisms: None Reported Past Surgical History: Appendectomy, Bowel Resection, Section, Cholecystectomy, Hernia Repair, Orthopedic Surgery Additional Past Surgical History / Comment(s): Colonoscopy; right knee surgery; EGD's w/dilations Past Anesthesia/Blood Transfusion Reactions: No Reported Reaction Past Psychological History: No Psychological Hx Reported Smoking Status: Never smoker - Past Family History Mother Family Medical History: No Reported History Additional Family Medical History / Comment(s): . Father Family Medical History: Asthma, Coronary Artery Disease (CAD), CVA/TIA Additional Family Medical History / Comment(s): at age 65 due to asthma/breathing issues General Exam Limitations: no limitations General appearance: alert, in no apparent distress Head exam: Present: atraumatic, normocephalic Eye exam: Present: normal appearance, PERRL ENT exam: Present: normal exam Neck exam: Present: normal inspection. Absent: tenderness Respiratory exam: Present: decreased breath sounds. Absent: respiratory distress Cardiovascular Exam: Present: regular rate, normal rhythm GI/Abdominal exam: Present: soft. Absent: distended, tenderness, guarding Extremities exam: Present: normal inspection, normal capillary refill. Absent: calf tenderness Neurological exam: Present: alert, oriented X3, CN II-XII intact. Absent: motor sensory deficit Psychiatric exam: Present: normal affect, normal mood Skin exam: Present: warm, dry, intact. Absent: cyanosis, diaphoretic Course Vital Signs 01/27/25 01/27/25 01:29 04:23 Temperature 98.1 F Pulse Rate 67 59 L Respiratory 16 20 Rate Blood Pressure 160/88 164/90 O2 Sat by Pulse 99 96 Oximetry Medical Decision Making - Medical Decision Making Was pt. sent in by a medical professional or institution (, PA, AMMUNITION STORAGE SUPERINTENDENT, urgent care, hospital, or alf...) When possible be specific @ -No Did you speak to anyone other than the patient for history (EMS, parent, family, police, friend...)? What history was obtained from this source @ -No Did you review nursing and triage notes (agree or disagree)? Why? @ -I reviewed and agree with nursing and triage notes Were old charts reviewed (outside hosp., previous admission, EMS record, old EKG, old radiological studies, urgent care reports/EKG's, alf records)? Report findings @ -No old charts were reviewed Differential Diagnosis (chest pain, altered mental status, abdominal pain women, abdominal pain men, vaginal bleeding, weakness, fever, dyspnea, syncope, headache, dizziness, GI bleed, back pain, seizure, CVA, palpatations, mental health, musculoskeletal)? @ -Not applicable EKG interpreted by me (3pts min.). @ -Sinus rhythm low voltage no ST segment elevation, rate of 61, OH interval 148, QRS duration 86, QTc 428 X-rays interpreted by me (1pt min.). @ -[Chest x-ray is negative for acute cardiopulmonary findings CT interpreted by me (1pt min.). @ -CT brain negative for intracranial hemorrhage or mass effect U/S interpreted by me (1pt. min.). @ -None done What testing was considered but not performed or refused? (CT, X-rays, U/S, labs)? Why? @ -None What meds were considered but not given or refused? Why? @ -None Did you discuss the management of the patient with other professionals (professionals i.e. , PA, AMMUNITION STORAGE SUPERINTENDENT, lab, RT, psych nurse, social sciences department chair, child support officer, teacher, aoc director combat operations officer, case hardener)? Give summary @ -No Was smoking cessation discussed for >3mins.? @ -No Was critical care preformed (if so, how long)? @ -No Were there social determinants of health that impacted care today? How? (Homelessness, low income, unemployed, alcoholism, drug addiction, transportation, low edu. Level, literacy, decrease access to med. care, long-term, rehab)? @ -No Was there de-escalation of care discussed even if they declined (Discuss DNR or withdrawal of care, Hospice)? DNR status @ -No What co-morbidities impacted this encounter? (DM, HTN, Smoking, COPD, CAD, Cancer, CVA, ARF, Chemo, Hep., AIDS, mental health diagnosis, sleep apnea, morbid obesity)? @COPD Was patient admitted / discharged? Hospital course, mention meds given and route, prescriptions, significant lab abnormalities, going to OR and other pertinent info. @ -[74-year-old female presenting with 1 month history of dizziness. Patient has stable vitals. I did perform a workup including EKG, head CT, chest x-ray, CBC, CMP, troponin, urinalysis. Workup in the emergency department is unr emarkable. Patient is reassured and will continue to follow-up with her primary care provider. Undiagnosed new problem with uncertain prognosis? @ -No Drug Therapy requiring intensive monitoring for toxicity (Heparin, Nitro, Insulin, Cardizem)? @ -No Were any procedures done? @ -No Diagnosis/symptom? @Dizziness Acute, or Chronic, or Acute on Chronic? @Acute on chronic Uncomplicated (without systemic symptoms) or Complicated (systemic symptoms)? @ -Default Side effects of treatment? @ -No Exacerbation, Progression, or Severe Exacerbation? @ -No Poses a threat to life or bodily function? How? (Chest pain, USA, NV, pneumonia, PE, COPD, DKA, ARF, appy, cholecystitis, CVA, Diverticulitis, Homicidal, Suicidal, threat to staff... and all critical care pts) @ -No - Lab Data Result diagrams: 01/27/25 01:52 01/27/25 01:52 Lab Results 01/27/25 01/27/25 01/27/25 Range/Units 01:52 01:52 01:52 WBC 5.20 (4.50-10.00) 10*3/uL RBC 4.51 (4.10-5.20) 10*6/uL Hgb 15.6 H (12.0-15.0) g/dL Hct 46.2 (37.2-46.3) % MCV 102.4 H (80.0-97.0) fL MCH 34.6 H (27.0-32.0) pg MCHC 33.8 (32.0-37.0) g/dL Plt Count 133 L (140-440) 10*3/uL MPV 9.0 L (9.5-12.2) fL Immature Gran % (Auto) 0.4 % Neutrophils % 51.7 % Lymphocytes % 31.2 % Monocytes % 12.7 % Eosinophils % 2.5 % Basophils % 1.5 % Immature Gran # 0.02 (0.00-0.04) 10*3/uL Neutrophils # 2.69 (1.80-7.70) 10*3/uL Lymphocytes # 1.62 (0.90-5.00) 10*3/uL Monocytes # 0.66 (0.20-1.00) 10*3/uL Eosinophils # 0.13 (0.04-0.35) 10*3/uL Basophils # 0.08 (0.00-0.10) 10*3/uL PT 17.6 H (10.0-12.5) sec INR 1.7 H (<1.2) APTT 27.2 (22.0-30.0) sec Sodium 140 (137-145) mmol/L Potassium 4.6 (3.5-5.1) mmol/L Chloride 106 (98-107) mmol/L Carbon Dioxide 25 (22-30) mmol/L Anion Gap 9 mmol/L BUN 17 (7-17) mg/dL Creatinine 0.94 (0.52-1.04) mg/dL Est GFR (CKD-EPI)AfAm 69 (>60 ml/min/1.73 sqM) Est GFR (CKD-EPI)NonAf 60 (>60 ml/min/1.73 sqM) Glucose 109 H (74-99) mg/dL Plasma Lactic Acid Wil (0.7-2.0) mmol/L Calcium 9.5 (8.4-10.2) mg/dL Magnesium 1.9 (1.6-2.3) mg/dL Total Bilirubin 0.7 (0.2-1.3) mg/dL AST 28 (14-36) U/L ALT 20 (4-34) U/L Alkaline Phosphatase 303 H (38-126) U/L Troponin I (0.000-0.034) ng/mL Total Protein 7.2 (6.3-8.2) g/dL Albumin 4.2 (3.5-5.0) g/dL Urine Color Urine Appearance (Clear) Urine pH (5.0-8.0) Ur Specific [place] (1.001-1.035) Urine Protein (Negative) Urine Glucose (UA) (Negative) Urine Ketones (Negative) Urine Blood (Negative) Urine Nitrite (Negative) Urine Bilirubin (Negative) Urine Urobilinogen (<2.0) mg/dL Ur Leukocyte Esterase (Negative) 01/27/25 01/27/25 01/27/25 Range/Units 01:52 01:52 03:56 WBC (4.50-10.00) 10*3/uL RBC (4.10-5.20) 10*6/uL Hgb (12.0-15.0) g/dL Hct (37.2-46.3) % MCV (80.0-97.0) fL MCH (27.0-32.0) pg MCHC (32.0-37.0) g/dL Plt Count (140-440) 10*3/uL MPV (9.5-12.2) fL Immature Gran % (Auto) % Neutrophils % % Lymphocytes % % Monocytes % % Eosinophils % % Basophils % % Immature Gran # (0.00-0.04) 10*3/uL Neutrophils # (1.80-7.70) 10*3/uL Lymphocytes # (0.90-5.00) 10*3/uL Monocytes # (0.20-1.00) 10*3/uL Eosinophils # (0.04-0.35) 10*3/uL Basophils # (0.00-0.10) 10*3/uL PT (10.0-12.5) sec INR (<1.2) APTT (22.0-30.0) sec Sodium (137-145) mmol/L Potassium (3.5-5.1) mmol/L Chloride (98-107) mmol/L Carbon Dioxide (22-30) mmol/L Anion Gap mmol/L BUN (7-17) mg/dL Creatinine (0.52-1.04) mg/dL Est GFR (CKD-EPI)AfAm (>60 ml/min/1.73 sqM) Est GFR (CKD-EPI)NonAf (>60 ml/min/1.73 sqM) Glucose (74-99) mg/dL Plasma Lactic Acid Wil 2.0 (0.7-2.0) mmol/L Calcium (8.4-10.2) mg/dL Magnesium (1.6-2.3) mg/dL Total Bilirubin (0.2-1.3) mg/dL AST (14-36) U/L ALT (4-34) U/L Alkaline Phosphatase (38-126) U/L Troponin I <0.012 (0.000-0.034) ng/mL Total Protein (6.3-8.2) g/dL Albumin (3.5-5.0) g/dL Urine Color Colorless Urine Appearance Clear (Clear) Urine pH 6.5 (5.0-8.0) Ur Specific [place] 1.007 (1.001-1.035) Urine Protein Negative (Negative) Urine Glucose (UA) Negative (Negative) Urine Ketones Negative (Negative) Urine Blood Negative (Negative) Urine Nitrite Negative (Negative) Urine Bilirubin Negative (Negative) Urine Urobilinogen <2.0 (<2.0) mg/dL Ur Leukocyte Esterase Negative (Negative) Disposition Clinical Impression: Dizziness Disposition: HOME SELF-CARE Condition: Fair Instructions (If sedation given, give patient instructions): Dizziness (ED) Is patient prescribed a controlled substance at d/c from ED?: No Referrals: Sebastián Frazier MD [Primary Care Provider] - 1-2 days Time of Disposition: 05:29
[2025-01-27 02:43] LABS: INR 1.7 (<1.2); Partial Thromboplastin Time 27.2 sec (22.0-30.0); Prothrombin Time 17.6 sec (10.0-12.5)
--- NOTE | 2025-01-27 03:11 | CT ---
EXAM: CT Head Without Intravenous Contrast CLINICAL HISTORY: ITS.REASON CT Reason: weakness TECHNIQUE: Axial computed tomography images of the head/brain without intravenous contrast. CTDI is 49.2 mGy and DLP is 1127.4 mGy-cm. This CT exam was performed using one or more of the following dose reduction techniques: automated exposure control, adjustment of the mA and/or kV according to patient size, and/or use of iterative reconstruction technique. COMPARISON: No relevant prior studies available. FINDINGS: No acute intracranial hemorrhage. No midline shift or mass effect. Encephalomalacia in the right parietal lobe, consistent with old infarct. Age-related cerebral volume loss. Periventricular and subcortical white matter hypoattenuation, consistent with chronic microangiopathy. The visualized orbits appear grossly unremarkable. The calvarium is intact. The visualized paranasal sinuses and mastoid air cells are grossly clear. IMPRESSION: No acute intracranial hemorrhage, midline shift, or mass effect. Encephalomalacia in the right parietal lobe, consistent with old infarct.
[2025-01-27 05:18] LABS: Bilirubin,Urine Negative (Negative); Blood,Urine Negative (Negative); Color,Urine Colorless; Glucose,Urine (UA) Negative (Negative); Ketones,Urine Negative (Negative); Leukocyte Esterase,Urine Negative (Negative); Nitrite,Urine Negative (Negative); PH, Urine 6.5 (5.0-8.0); Protein,Urine Negative (Negative); Specific Gravity,Urine 1.007 (1.001-1.035); Urobilinogen,Urine <2.0 mg/dL (<2.0)
--- NOTE | 2025-01-27 05:27 | XR ---
EXAM: XR Chest, 2 Views CLINICAL HISTORY: Weakness TECHNIQUE: Frontal and lateral views of the chest. COMPARISON: No relevant prior studies available. FINDINGS: Lungs: Unremarkable. No consolidation. Pleural space: Unremarkable. Mediastinum: Calcified aorta. Normal mediastinal contour. Bones/joints: No acute findings. IMPRESSION: No acute findings.
[2025-01-27 05:38] VITALS: BP 156/63; PULSE 61; RESP 18
== END 2025-01-27 05:39 | disposition home or self-care (01) ==
LOC: EC 01:21
CPT/HCPCS: 36415; 70450; 71046; 80053; 81003; 83605; 83735; 84484; 85025; 85610; 85730; 93005; 96360; 99284